=== PATIENT | female | born 1975 | race Caucasian/White ===

== ENCOUNTER 2025-06-20 16:28 | Emergency (ER) | payer OTHER, SELFPAY ==
--- OUTSIDE RECORDS SUMMARY | 2010-12-17 | XMS_ITS | Encounter Summary ---
Author Organization [facility] Address [address] [place] [address] Phone Care Team Providers Care Mixer Pigment Name Role Phone Unavailable Primary Care Provider Unavailabl e Encounter Details Date Type Department Care Team (Late st Contact Info) Description 12/17/2010 Hospital Encounter [facility],Outside Imaging [address] [place] [address] System, Provider [place] In, [place] [address] Social History Tobacco Use Types Packs/Day Years Used Date Smoking Tobacco: Former Cigarettes 1 5 1 989 - 1993 Smokeless Tobacco: Never Alcohol Use Standard Drinks/Week Comments Yes 1 (1 standard drink = 0.6 oz pur e alcohol) Very rarely Child or Family Care Answer Date Record ed Do you have problems with on e of the following making it difficult for you to work, study, or receive health care? No 08/30/2023 Education Answer Date Recorded Are you interested in help w ith more adult education (for example, completing high school, GED, job training, learning the Ethiopian language, technical skills, or developing parenting skills)? No 08/30/2023 Are you concerned about learning? Not on file 08/30/2023 No 08/30/2023 Yes 08/30/2023 Food Answer Date Recorded Within the past 6 months we worried whether our food would run out before we got money to buy more. Never True 08/30/2023 Within the past 6 months the food we bought just didn't last and we didn't have enough money to get more. Never True Residential Stability Answer Date Recor ded What is your housing situation today? I have nash jean baptiste 08/30/2023 How many times have you move d in the past 12 months? Zero (I did not move) 08/30/2023 Paying for Meds Answer Date Recorded Do you have trouble paying for medicines? No 08/30/2023 Paying Utility Bills Answer Date Record ed Do you have trouble paying your heating or elect ricity bill? No 08/30/2023 Transportation Answer Date Recorded Has the lack of transportati on kept you from medical appointments or from getting medications? No 08/30/2023 Unemployment Answer Date Recorded Are you currently unemployed or working on a part-time or temporary basis, and looking for work? No 12/02/2021 Digital Access Answer Date Recorded No 08/30/2023 Yes 08/30/2023 Do you have reliable internet access at home? Ye s 08/30/2023 Do you have a device (e.g., phone, tablet, computer) with a working camera? Yes 08/30/2023 Intimate Partner Violence Answer Date R ecorded Are you denied basic needs s uch as food, clothing, or medical care? No 05/22/2025 In the past 12 months have y ou been in a relationship with a person who hurts, threatens, or tries to control you? No 05/22/2025 Are you denied basic needs s uch as food, clothing, or medical care? No 05/22/2025 In the past 12 months have y ou been in a relationship with a person who hurts, threatens, or tries to control you? 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 Wish to be (Past 1 Month) No 05/01/2024 3:41 PM EDT Daiana Escalante, YOSELIN 2. Non-Specific Active Suicidal Thoughts (Past 1 Month) No 05/01/2024 3:41 PM EDT Daiana Escalante, YOSELIN 6. Suicidal Behavior (Lifetime) No 05/01/2024 3:41 PM EDT Daiana Escalante, YOSELIN documented as of this encounter Plan of Treatment Upcoming Encounters Date Type Department Care Team (Late st Contact Info) Description 01/02/2025 Procedure Pass [facility], Mammography, Prerna Lank Imaging Department [address] [place] [address] 07/01/2025 8:45 AM EST Office Visit [facility] Plastic Surgery [address] [place] [address] Kunal Navarro MD [address] [place] [phone] [email or web address] 07/18/2025 3:00 PM EST Office Visit [address] [address] Megha Flowers, PROTECTION ENGINEER [address] [address] 08/14/2025 Procedure Pass OR Admitting Dept - Virtual Department [address] [place] [address] 08/14/2025 12:02 PM EST Hospital Encounter OR Admitting Dept - Virtual Department [address] [place] [address] Kunal Navarro MD [address] [place] [address], [address] [address] 08/14/2025 12:02 PM EST - 08/14/2025 2:27 PM EST Surgery OR Admitting Dept - Virtual Department [address] [place] [address] Kunal Navarro MD [address] [place] [address], [address] [place] [address] [email or web address] CAPSULOTOMY BREAST 01/08/2026 2:00 PM EDT Appointment [facility], Mammography, Prerna Lank Imaging Department [address] [place] [address] Maryse Aparicio PA-C [address] [place] [address] [email or web address] Hemal Rodriguez MD, PhD [address] [place] [address] [email or web address] 01/08/2026 3:00 PM EDT Office Visit [facility] [place] [facility], [address], 9th [place] [address] Hemal Rodriguez MD, PhD [address] [place] [phone] [email or web address] Scheduled Procedures Name Priority Associated Diagnoses Date/Ti me CAPSULOTOMY BREAST Breast asymmetry between [place] breast and reconstructed breast 08/14/2025 12:02 PM EST EXCHANGE IMPLANT BREAST Breast asymmetry between [place] breast and reconstructed breast 08/14/2025 12:02 PM EST documented as of this encounter Procedures Procedure Name Priority Date/Time Associated Diagnosis Comments BI MAMMOGRAM OUTSIDE (NO INTERPRETATION) Routine 12/17/2010 12:00 AM EDT documented in this encounter Results * Mammogram Outside (No Interpretation) (12/17/2010 12:00 AM EDT) Narrative SYSTEMGENERATED, DOCUMENTATION - 02/20/2018 9:56 AM EDT This study is for PACS storage only and not for interpretation. us Provider Not In System PhD IMG OUTSIDE IMAGING W /OUT INTERPRETATION Final Result documented in this encounter Visit Diagnoses Not on filedocumented in this encounter Additional Health Concerns Infection Onset Date Last Indicated Resolved Time CoV-Risk 09/01/2021 09/01/2021 09/11/2021 1:24 AM EST CoV-Risk 01/01/2022 01/01/2022 01/12/2022 1:24 AM EDT CoV-Risk 08/31/2022 08/31/2022 09/11/2022 1:22 AM EST COVID-19 04/24/2024 04/24/2024 05/15/2024 1:21 AM EDT documented as of this encounter Additional Source Comments The information contained in this document represents components of the legal health record. It is not the complete legal health record.[facility]
--- OUTSIDE RECORDS SUMMARY | 2010-12-29 | XMS_ITS | Encounter Summary ---
Author Organization [facility] Address [address] [place] [address] Phone Care Team Providers Care Molding Machine Tender Name Role Phone Unavailable Primary Care Provider Unavailabl e Encounter Details Date Type Department Care Team (Late st Contact Info) Description 12/29/2010 Hospital Encounter [facility],Outside Imaging [address] [place] [address] System, Provider [place] In, [place] [address] Social History Tobacco Use Types Packs/Day Years [...] high school, GED, job training, learning the French language, technical skills, or developing parenting skills)? [...] 3:41 PM EDT Daiana Escalante RN * [place] Suicide Severity Rating Scale (Screener/Recent Self-Report) Question [...] Info) Description 01/02/2025 Procedure Pass [facility] [place], Mammography, Prerna Lank Imaging Department [address] [place] [address] 07/01/2025 8:45 AM EST Office Visit [facility] Plastic Surgery [address] [place] [address] Kunal Navarro MD [address] [place] [address] 07/18/2025 3:00 PM EST Office Visit [address] [address] Megha Flowers, STILL OPERATOR [address] [address] 08/14/2025 Procedure Pass OR Admitting Dept - Virtual Department [address] [place] [address] 08/14/2025 12:02 PM EST Hospital Encounter OR Admitting Dept - Virtual Department [address] [place] [address] Kunal Navaror MD [address] [place] [address], [address] [address] 08/14/2025 12:02 PM EST - 08/14/2025 2:27 PM EST Surgery OR Admitting Dept - Virtual Department [address] [place] [address] Kunal Navarro MD [address] [place] [address], [address] [place] [address] [email or web address] CAPSULOTOMY BREAST 01/08/2026 2:00 PM EDT Appointment [facility], Mammography, Prerna Lank Imaging Department [address] [place] [address] Maryse Aparicio PA-C [address] [place] [address] [email or web address] Hemal Rodriguez MD, PhD [address] [place] [address] [email or web address] 01/08/2026 3:00 PM EDT Office Visit [facility] [place] [facility], [address] 9[address] [place] [address] Hemal Rodriguez MD, PhD [address] [place] [phone] [email or web address] Scheduled Procedures Name Priority Associated Diagnoses Date/Ti me CAPSULOTOMY BREAST Breast asymmetry between [place] breast and reconstructed breast 08/14/2025 12:02 PM EST EXCHANGE IMPLANT BREAST Breast asymmetry between [place] breast and reconstructed breast 08/14/2025 12:02 PM EST documented as of this encounter Procedures Procedure Name Priority Date/Time Associated Diagnosis Comments BI MAMMOGRAM OUTSIDE (NO INTERPRETATION) Routine 12/29/2010 12:00 AM EDT documented in this encounter Results * Mammogram Outside (No Interpretation) (12/29/2010 12:00 AM EDT) Narrative SYSTEMGENERATED, DOCUMENTATION - 02/20/2018 9:53 AM EDT This study is for PACS [...] It is not the complete legal health record.[facility]
--- OUTSIDE RECORDS SUMMARY | 2010-12-29 00:15 | XMS_ITS | Encounter Summary ---
Author Organization [facility] Address [address] [place] [address] Phone Care Team Providers Care Dietetic Assistant Name Role Phone Unavailable Primary Care Provider Unavailabl e Encounter Details Date Type Department Care Team (Late st Contact Info) Description 12/29/2010 12:15 AM EDT Hospital Encounter [facility],Outside Imaging [address] [place] [address] System, Provider [place] In, [place] [address] Social History Tobacco Use Types Packs/Day Years [...] high school, GED, job training, learning the German language, technical skills, or developing parenting skills)? [...] 3:41 PM EDT Daiana Escalante RN * [place] Suicide Severity Rating Scale (Screener/Recent Self-Report) Question [...] st Contact Info) Description 01/02/2025 Procedure Pass [facility] [place], Mammography, Prerna Lank Imaging Department [address] [place] [address] 07/01/2025 8:45 AM EST Office Visit [facility] Plastic Surgery [address] [place] [address] Kunal Navarro MD [address] [place] [address] 07/18/2025 3:00 PM EST Office Visit [facility] [address] [place] [address] Megha Flowers, RETAIL COMMISSION SALES ASSOCIATE 234 [facility] 7 [place] [address] 08/14/2025 Procedure Pass OR Admitting Dept - Virtual Department [address] [place] [address] 08/14/2025 12:02 PM EST Hospital Encounter OR Admitting Dept - Virtual Department [address] [place] [address] Kunal Navarro MD [address] [place] [address], [address] [address] 08/14/2025 12:02 PM EST - 08/14/2025 2:27 PM EST Surgery OR Admitting Dept - Virtual Department [address] [place] [address] Kunal Navarro MD [address] [place] [address], [address] [place] [address] [email or web address] CAPSULOTOMY BREAST 01/08/2026 2:00 PM EDT Appointment [facility], Mammography, Prerna Lank Imaging Department [address] [place] [address] Maryse Aparicio PA-C [address] [place] [address] [email or web address] Hemal Rodriguez MD, PhD [address] [place] [address] [email or web address] 01/08/2026 3:00 PM EDT Office Visit [facility] [place] [facility], [address], 9th [place] [address] Hemal Rodriguez MD, PhD [address] [place] [address] [email or web address] Scheduled Procedures Name Priority Associated Diagnoses Date/Ti me CAPSULOTOMY BREAST Breast asymmetry between [place] breast and reconstructed breast 08/14/2025 12:02 PM EST EXCHANGE IMPLANT BREAST Breast asymmetry between [place] breast and reconstructed breast 08/14/2025 12:02 PM EST documented as of this encounter Procedures Procedure Name Priority Date/Time Associated Diagnosis Comments BI MAMMOGRAM OUTSIDE (NO INTERPRETATION) Routine 12/29/2010 12:15 AM EDT documented in this encounter Results * Mammogram Outside (No Interpretation) (12/29/2010 12:15 AM EDT) Narrative SYSTEMGENERATED, DOCUMENTATION - 02/20/2018 10:02 AM EDT This study is for PACS [...] It is not the complete legal health record.[facility]
--- OUTSIDE RECORDS SUMMARY | 2010-12-29 00:30 | XMS_ITS | Encounter Summary ---
Author Organization [facility] Address [address] [place] [address] Phone Care Team Providers Care Tariff Compiler Name Role Phone Unavailable Primary Care Provider Unavailabl e Encounter Details Date Type Department Care Team (Late st Contact Info) Description 12/29/2010 12:30 AM EDT Hospital Encounter [facility],Outside Imaging [address] [place] [address] System, Provider Not In, [place] [address] Social History Tobacco Use Types Packs/Day Years [...] high school, GED, job training, learning the Eritrean language, technical skills, or developing parenting skills)? [...] 3:41 PM EDT Daiana Escalante RN * [place] Suicide Severity Rating Scale (Screener/Recent Self-Report) Question [...] st Contact Info) Description 01/02/2025 Procedure Pass [facility] [place], Mammography, Prerna Lank Imaging Department [address] [place] [address] 07/01/2025 8:45 AM EST Office Visit [facility] Plastic Surgery [address] [place] [address] Kunal Navarro MD [address] [place] [address] [email or web address] 07/18/2025 3:00 PM EST Office Visit [facility] [address] [place] [address] Megha Flowers, WOOD TOOL MAKER 234 [facility] 7 [place] [address] 08/14/2025 Procedure Pass OR Admitting Dept - Virtual Department [address] [place] [address] 08/14/2025 12:02 PM EST Hospital Encounter OR Admitting Dept - Virtual Department [address] [place] [address] Kunal Navarro MD [address] [place] [address], [address] [address] 08/14/2025 12:02 PM EST - 08/14/2025 2:27 PM EST Surgery OR Admitting Dept - Virtual Department [address] [place] [address] Kunal aNvarro MD [address] [place] [address], [address] [place] [address] [email or web address] CAPSULOTOMY BREAST 01/08/2026 2:00 PM EDT Appointment [facility], Mammography, Prerna Lank Imaging Department [address] [place] [address] Maryse Aparicio PA-C [address] [place] [phone] [email or web address] Hemal Rodriguez MD, PhD [address] [place] [address] [email or web address] 01/08/2026 3:00 PM EDT Office Visit [facility] [place] [facility], [address] [place] [address] Hemal Rodriguez MD, PhD [address] [place] [phone] [email or web address] Scheduled Procedures Name Priority Associated Diagnoses Date/Ti me CAPSULOTOMY BREAST Breast asymmetry between [place] breast and reconstructed breast 08/14/2025 12:02 PM EST EXCHANGE IMPLANT BREAST Breast asymmetry between [place] breast and reconstructed breast 08/14/2025 12:02 PM EST documented as of this encounter Procedures Procedure Name Priority Date/Time Associated Diagnosis Comments BI US BREAST OUTSIDE (NO INTERPRETATION) Routine 12/29/2010 12:30 AM EDT documented in this encounter Results * US Breast Outside (No Interpretation) (12/29/2010 12:30 AM EDT) Narrative SYSTEMGENERATED, DOCUMENTATION - 02/20/2018 10:03 AM EDT This study is for PACS [...] It is not the complete legal health record.[facility]
--- OUTSIDE RECORDS SUMMARY | 2013-07-12 01:00 | XMS_ITS | Encounter Summary ---
Author Organization [facility] Address [address] [place] [address] Phone Care Team Providers Care Universal Grinder Set Up Operator Name Role Phone Unavailable Primary Care Provider Unavailabl e Encounter Details Date Type Department Care Team (Late st Contact Info) Description 07/12/2013 Hospital Encounter [facility],Outside Imaging [address] [place] [address] System, Provider Not In, PhD Partners [address] [address] Social History Tobacco Use Types Packs/Day Years [...] high school, GED, job training, learning the Estonian language, technical skills, or developing parenting skills)? [...] 3:41 PM EDT Daiana Escalante RN * [place] Suicide Severity Rating Scale (Screener/Recent Self-Report) Question [...] Info) Description 01/02/2025 Procedure Pass [facility] [place], Mammography, Prerna Lank Imaging Department [address] [place] [address] 07/01/2025 8:45 AM EST Office Visit [facility] Plastic Surgery [address] [place] [address] Kunal Navarro MD [address] [place] [address] [email or web address] 07/18/2025 3:00 PM EST Office Visit [address] [address] Megha Flowers, CAN STRIPER [address] [address] 08/14/2025 Procedure Pass OR Admitting Dept - Virtual Department [address] [place] [address] 08/14/2025 12:02 PM EST Hospital Encounter OR Admitting Dept - Virtual Department [address] [place] [address] Kunal Navarro MD [address] [place] [address], [address] [address] 08/14/2025 12:02 PM EST - 08/14/2025 2:27 PM EST Surgery OR Admitting Dept - Virtual Department [address] [place] [address] Kunal Navarro MD [address] [place] [address], [address] [place] [address] [email or web address] CAPSULOTOMY BREAST 01/08/2026 2:00 PM EDT Appointment [facility] [place], Mammography, Prerna Lank Imaging Department [address] [place] [address] Maryse Aparicio PA-C [address] [place] [address] [email or web address] Hemal Rodriguez MD, PhD [address] [place] [address] [email or web address] 01/08/2026 3:00 PM EDT Office Visit [facility] [place] [facility], [address] 9th [place] [address] Hemal Rodriguez MD, PhD [address] [place] [address] [email or web address] Scheduled Procedures Name Priority Associated Diagnoses Date/Ti me CAPSULOTOMY BREAST Breast asymmetry between [place] breast and reconstructed breast 08/14/2025 12:02 PM EST EXCHANGE IMPLANT BREAST Breast asymmetry between [place] breast and reconstructed breast 08/14/2025 12:02 PM EST documented as of this encounter Procedures Procedure Name Priority Date/Time Associated Diagnosis Comments BI MAMMOGRAM OUTSIDE (NO INTERPRETATION) Routine 07/12/2013 12:00 AM EST documented in this encounter Results * Mammogram Outside (No Interpretation) (07/12/2013 12:00 AM EST) Narrative SYSTEMGENERATED, DOCUMENTATION - 02/20/2018 9:57 AM EDT This study is for PACS [...] It is not the complete legal health record.[facility]
[2025-06-20 16:56] VITALS: BP 146/99; PULSE 80; RESP 16; TEMP 36.4; O2SAT 98; BMI 25.0
--- NOTE | 2025-06-20 16:56 | ED.ANIMALBIT ---
HPI - Animal Bite General Chief Complaint: Animal Bite Stated Complaint: dog bite Time Seen by Provider: 06/20/25 18:25 Source: patient Mode of arrival: ambulatory Limitations: no limitations History of Present Illness ED Provider: SEAN FLOOD PA-C HPI narrative: 49-year-old female presents to the emergency department today for evaluation s/p dog bite earlier today. Patient states [place] a dog ran up to her and bit her right lower leg. She did not think the dog broke any skin and continued on riding, did not ask the public speaking professor about vaccination status. Later on in the day, she noticed a small break in her skin to the outer aspect of her right lower leg. No active bleeding or discharge. She contacted her PCP who advised her to come to the ED for rabies series. States her tetanus is up-to-date. No complaints at present. Related Data Previous Rx's ?Medication ?Instructions ?Recorded cefuroxime axetil 500 mg tablet 500 mg PO BID 5 days #10 tabs 06/20/25 metronidazole 500 mg tablet 500 mg PO TID 5 days #15 tabs 06/20/25 Allergies Allergy/AdvReac Type Severity Reaction Status Date / Time Penicillins (PCN) Allergy Hives Verified 06/20/25 16:58 Review of Systems Review of Systems: Yes all other systems are reviewed and are negative [facility] Past Medical History Attestation statement: The following information was validated with the patient. Source: old records reviewed and nursing notes reviewed Social History Social History Advance Directives: No Advance Directives Information Provided: Yes Physical Exam ED Vital Signs: Vital Signs - 24 hr 06/20/25 16:56 06/20/25 19:15 06/20/25 19:16 Temperature 97.5 F 97.5 F 97.5 F Pulse Rate 80 80 80 Respiratory Rate 16 16 16 Blood Pressure 146/99 H 146/99 H 146/99 H Pulse Oximetry 98 98 98 Oxygen Delivery Method Room Air Room Air Room Air BMI result Body Mass Index 25.0 Hypertensive, vitals are otherwise WNL General: Well appearing, in no acute distress. Skin: +See below Head: Normocephalic, atraumatic. EENT: Hearing is intact b/l. Conjunctiva clear. Sclera is anicteric. PERRLA. EOM intact. Moist mucous membranes.? Neck: Supple without LAD Cardiac: Chest wall symmetric. RRR Lungs: Normal respiratory effort without accessory muscle use. CTA bilaterally Abdomen: Soft, non-tender, non-distended. No rebound tenderness or guarding. Positive BS x4. Back: No midline spinous or paraspinal tenderness. No step off deformity. Ext: +small puncture wound noted to lateral aspect of right lower leg. No active bleeding. No exposure of subcutaneous tissue. No discharge or surrounding erythema. Neuro: AOx3. Normal speech. Ambulating with steady gait. Psych: Appropriate mood and affect. Responds appropriately to questions. Course Course Course Narrative: This is an RME: Additional HPI, ROS, PE not included below will be deferred to primary provider. RME assessment and note performed by: Xiao Chew PA-C This is a 78-smhc-gpi-female who presents to the ER with a complaint of dog bite. Reports that she was riding her bite and the dog attacked her. Reports that she did not think the skin broke, but later on noticed that it may have broken the skin. PCP told her to come into the ED for the rabies series. Has not received rabies as of yet. Plan: rabies series Reevaluation(s) Reevaluation #1: Rabies vaccine and immunoglobulin provided in the ED. Patient has an allergy to penicillin. Will avoid Augmentin. Cefuroxime plus Flagyl sent to pharmacy for prophylactic treatment. She tells me her tdap is UTD. She has been provided with infusion center contact info - advised to f/u with them for rabies series. Patient has remained stable throughout ED visit today. Discussed worrisome signs and symptoms and when to return to the ED. All questions answered at this time. Patient is agreeable with disposition and stable for discharge. Medications Administered Discontinued Medications Generic Name Dose Route Start Last Admin Trade Name Freq PRN Reason Stop Dose Admin Rabies Immune Globulin 1,200 unit 06/20/25 17:34 06/20/25 18:52 Rabies Immune Globulin/Pf 300 Unit/Ml Vial 20 unit/kg (1200 unit) 06/20/25 17:35 1,200 unit IM Administration ONCE ONE Rabies Vaccine 1 ml 06/20/25 17:34 06/20/25 18:46 Rabies Vaccine (Pcec)/Pf 1 Ml Vial IM 10/23/25 17:35 1 ml .ONCE ONE Administration Medical Decision Making Medical Decision Making MDM Narrative: 49-year-old female presents to the emergency department today for evaluation s/p dog bite earlier today. hypertensive, vitals are otherwise wnl. she is well appearing and in NAD. On exam, small puncture wound noted to lateral aspect of right lower leg. No active bleeding. No exposure of subcutaneous tissue. No discharge or surrounding erythema. Differential diagnosis includes dog bite, cellulitis, puncture wound Unlikely fracture, retained fb, abscess. Plan for wash out and rabies vaccine/ immunglobulin. Differential Diagnosis Differential Diagnoses: The differential diagnosis associated with the presentation includes As above Admission/Observation Not indicated Prescription Management I considered prescription management with: Antibiotic Social Determinants Patient?s care significantly limited by Social Determinants of Health including: Other Social Determinant of Health Critical Care Time Critical Care Time Critical Care Time: No Discharge Plan Discharge Clinical Impression: Dog bite Patient Disposition: Home, Self-Care Instructions: Animal Bite (ED), Rabies (ED) Additional Instructions: You have been evaluated in the Emergency Department today for an animal bite to your right lower leg. Please keep the area surrounding the wounds clean and dry and watch closely for signs of infection. I have sent 2 different antibiotics to the pharmacy. Cefuroxime and metronidazole. Take these both as prescribed over the next 5 days. Please take the antibiotics prescribed to you in full, as directed. You were also provided with the first rabies shot in the rabies vaccination treatment series. As discussed, please follow up with the infusion center for subsequent vaccinations over the next week. Instructions provided on separate paper. You state that your tetanus is up-to-date. This was not updated today. Please follow up with your primary care provider within two days. Return to the Emergency Department if you experience worsening or uncontrolled pain, spreading redness, fevers 100.4? or greater, pus from your bite, or for any other concerning symptoms. In the case of an emergency call 101. Rabies follow up with the [facility] Infusion Center: Upon discharge from the ED today, you will be contacted by the Infusion Center to schedule your follow up Rabies vaccines. You will need a total of 3 more injections. If for some reason you do not receive a call, please call the Infusion Center directly at [phone]. Follow up with your primary care provider after completion of the vaccine to have a titer drawn to ensure the vaccines effectiveness. Prescriptions: New cefuroxime axetil 500 mg tablet 500 mg PO BID 5 Days Qty: 10 0RF metronidazole 500 mg tablet 500 mg PO TID 5 Days Qty: 15 0RF Referrals: Physician,Unknown J [Primary Care Provider, Medical] Interventions: ED Discharge Assessment Last Done: 06/20/25 19:16 Discharge Date/Time: 06/20/25 19:16 Print Language: Malaysian
[2025-06-20] MEDS: Rabies Vaccine (PCEC)/PF 1 ML VIAL IM (18:46)
--- NOTE | 2025-06-20 18:54 | MHC.EDTECH ---
puncture to R lind cleaned with betadine and saline solution
[2025-06-20 19:15] VITALS: BP 146/99; PULSE 80; RESP 16; TEMP 36.4; O2SAT 98
[2025-06-20 19:16] VITALS: BP 146/99; PULSE 80; RESP 16; TEMP 36.4; O2SAT 98
--- OUTSIDE RECORDS SUMMARY | 2025-06-20 19:45 | XMS_ITS | Encounter Summary ---
Author Organization [facility] Address [address] [place] [address] Phone Care Team Providers Care Compensation Analyst Name Role Phone Guzman Arteaga MD Primary Care Provider Self-Referred, Patient Unavailable Unavailab Marisa Mcnally MD Unavailable + [phone] Sania ZarateC Unavailable [phone] Hemal Rodriguez MD, PhD Unavailable + [phone] Saranya Treadwell NP Unavailable Unavai Silvana Florez MD Unavailable Sophie Martins RN Unavailable [phone] Linn Menon [facility] Unavailable Malik Perez MD Unavailable [phone] Royal Daniels MD Unavailable [phone] Richard Andrews MD Unavailable Megha Flowers Primary Care Provider [phone] Encounter Details Date Type Department Care Team (Late st Contact Info) Description 03/16/2018 Ancillary Orders [facility] [address] [place], [place] [phone] Guzman Arteaga MD [address] [facility], [address] [place] [address] Breast cancer screening Social History Tobacco Use Types Packs/Day Years Used Date Smoking Tobacco: Former Cigarettes 1 5 1 989 - 1993 Smokeless Tobacco: Never Alcohol Use Standard Drinks/Week Comments Yes 1 (1 standard drink = 0.6 oz pur e alcohol) monthly Comments No Sex and Gender Information Value Date Recorded Sex Assigned at Female 03/10/2023 7:31 PM EDT Legal Sex Female 9:31 PM EDT Gender Identity Female 03/10/2023 7:31 PM EDT Sexual Orientation Straight 03/10/2023 7: 31 PM EDT 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 Plastic Surgery [address] [place] [address] Kunal Navarro MD [address] [place] [address] [email or web address] 07/18/2025 3:00 PM EST Office Visit [facility] [address] [place] [address] Megha Flowers FNP [address] [facility] [address] [place] [address] [email or web address] 08/14/2025 Procedure Pass [place] Admitting Dept - Virtual Department [address] [place] [address] 08/14/2025 12:02 PM EST Hospital Encounter OR Admitting Dept - Virtual Department [address] [place] [address] Kunal Navarro MD [address] [place] [address], [address] [place] [address] 08/14/2025 12:02 PM EST - 08/14/2025 2:27 PM EST Surgery OR Admitting Dept - Virtual Department [address] [place] [address] Kunal Navarro MD [address] [place] [address], [address] [place] [address] [email or web address] CAPSULOTOMY BREAST 01/08/2026 2:00 PM EDT Appointment [facility], Mammography, Prerna Lank Imaging Department [address] [place] [address] Maryse Aparicio PA-C [address] [place] [address] [email or web address] Hemal Rodriguez MD, PhD [address] [place] [address] [email or web address] 01/08/2026 3:00 PM EDT Office [facility], [address] 9th [place] [address] Hemal Rodriguez MD, PhD [address] [place] [address] [email or web address] Scheduled Procedures Name Priority Associated Diagnoses Date/Ti me CAPSULOTOMY BREAST Breast asymmetry between [place] breast and reconstructed breast 08/14/2025 12:02 PM EST EXCHANGE IMPLANT BREAST Breast asymmetry between [place] breast and reconstructed breast 08/14/2025 12:02 PM EST documented as of this encounter Results * BI MAMMOGRAM DIAGNOSTIC POST PROCEDURE WITH TOMOSYNTHESIS WITH CAD (RIGHT) (03/16/2018 1:59 PM EDT) Anatomical Region Laterality Modality Breast Right, Breast Bilateral Right M ammography 03/16/2018 12:5 7 PM EDT Impressions 03/16/2018 12:58 PM EDT Sonographic and mammographic lesions are definitely the same and the marker from ultrasound biopsy is well positioned. Narrative 03/16/2018 12:58 PM EDT Postbiopsy right mammogram 3-D CC and true lateral views are compared to the exam from 03/09/2018 and confirm that the marker from today's ultrasound-guided biopsy lies with in the area of architectural distortion and pleomorphic calcifications in the 9-10 o'clock right upper outer quadrant (ultrasound lesion and mammographic lesion are the same. No significant hematoma or other postbiopsy complication. Procedure Note Artie Russ MD - 03/16/2018 Postbiopsy right mammogram 3-D CC and true lateral views are compared to the exam from 03/09/2018 andconfirm that the marker from today's ultrasound-guided biopsy lies with inthe area of architectural distortion and pleomorphic calcifications in the9-10 o'clock right upper outer quadrant (ultrasound lesion andmammographic lesion are the same. No significant hematoma or other postbiopsy complication. IMPRESSION: Sonographic and mammographic lesions are definitely the same and themarker from ultrasound biopsy is well positioned. us Guzman Arteaga MD IMG MG EXAMS Final Result documented in this encounter Visit Diagnoses Diagnosis Breast cancer screening Breast screening, unspecified Breast cancer screening Breast screening, unspecified documented in this encounter Additional Health Concerns Infection Onset Date Last Indicated Resolved Time CoV-Risk 09/01/2021 09/01/2021 09/11/2021 1:24 AM EST CoV-Risk 01/01/2022 01/01/2022 01/12/2022 1:24 AM EDT CoV-Risk 08/31/2022 08/31/2022 09/11/2022 1:22 AM EST COVID-19 04/24/2024 04/24/2024 05/15/2024 1:21 AM EDT Assessment Noted Time PHQ-2 Depression Total Score: 0 11/12/19 3:55 PM EDT documented as of this encounter Care Teams Compensation Analyst Relationship Specialty Start Date End Date Guzman Arteaga MD [address] [place] [address] [address] [place] [address] [email or web address] PCP - General Family Medicine 09/05/17 03/16/23 Richard Andrews MD [address] [place] [address] [email or web address] PCP - Hematology/Oncology Hematology and Oncology 01/03/20 Megha Flowers FNP [address] [place] [address] [email or web address] PCP - General Family Medicine 03/17/23 Self-Referred, Patient Referring Physician 03/29/18 Marisa De Anda MD [address] [place] [address] [email or web address] Surgical Oncology 03/29/18 Sania Zarate PA-C [address] [place] [address] [id number] [place] [address] [email or web address] Surgical Oncology 03/29/18 Hemal Rodriguez MD, PhD [address] [place] [address] [email or web address] Hematology and Oncology 03/29/18 Saranya Treadwell, [employer] [address] [place] [address] Internal Medicine 03/29/18 Silvana Oakes MD [address] [place] [address] [email or web address] Radiation Oncology 06/01/18 Sophie Martins, RN [address] [place] [phone] [email or web address] Primary Infusion Nurse 07/17/18 Linn Menon, [address], [address] [place] [address] [address] [email or web address] Physiological Chemist Oncology 07/28/18 Malik Perez MD [address] [place] [address] [email or web address] Plastic and Reconstructive Surgery 10/25/19 Royal Daniels MD [address] [place] [address] Gynecology 10/25/19 documented as of this encounter Additional Source Comments The information contained in this document represents components of the legal health record. It is not the complete legal health record.[facility]
--- OUTSIDE RECORDS SUMMARY | 2025-06-20 19:45 | XMS_ITS | Encounter Summary ---
Author Organization [facility] Address [address] [place] [address] Phone Care Team Providers Care Tank Truck Driver Name Role Phone Guzman Arteaga MD Primary Care Provider [phone] Self-Referred, Patient Unavailable Unavailab Marisa Mcnally MD Unavailable + [phone] Sania Zarate PA-C Unavailable [phone] Hemal Rodriguez MD, PhD Unavailable [phone] Saranya Treadwell NP Unavailable Unavai Silvana Florez MD Unavailable Sophie Martins RN Unavailable [phone] Linn Menon [facility] Unavailable [phone] Malik Perez MD Unavailable [phone] Royal Daniels MD Unavailable [phone] Richard Andrwes MD Unavailable Megha Flowers RADIOLOGY TECHNICIAN Primary Care Provider [phone] Reason for Referral * MRI/CAT Scan - Closed Specialty Diagnoses / Procedures Referred By Janet t Referred To Contact Radiology Diagnoses Malignant neoplasm of right female breast, unspecified estrogen receptor status, unspecified site of breast Procedures NM Blodgett Node Breast Injection Only Marisa De Anda MD Phone: tel: fax:[phone] [email or web address] Referral ID Status Reason Start Date Expiration Date Visits Re quested Visits Authorized [id number] Closed 04/20/2018 04/20/2019 1 1 Encounter Details Date Type Department Care Team (Late st Contact Info) Description 04/20/2018 Prep for Surgery [facility] [address] [place] [address] Pina Whiteside NP [address] [place] [address] [email or web address] Malignant neoplasm of right female breast, unspecified estrogen receptor status, unspecified site of breast (Primary Dx) Social History Tobacco Use Types Packs/Day Years [...] st Contact Info) Description 01/02/2025 Procedure Pass [facility] [place], Mammography, Prerna Lank Imaging Department [address] [place] [address] 07/01/2025 8:45 AM EST Office Visit [facility] [place] [facility] [address] [place] [address] Kunal Navarro MD [address] [place] [address], [address] [address] 07/18/2025 3:00 PM EST Office Visit [facility] [address] [place] [address] Megha Flowers, RADIOLOGY TECHNICIAN [address] [facility], [address] [place] [address] 08/14/2025 Procedure Pass [place] Admitting Dept - Virtual Department [address] [place] [address] 08/14/2025 12:02 PM EST Hospital Encounter OR Admitting Dept - Virtual Department [address] [place] [address] uKnal Navarro MD [address] [place] [address], [address] [place] [address] 08/14/2025 12:02 PM EST - 08/14/2025 2:27 PM EST Surgery OR Admitting Dept - Virtual Department [address] [place] [address] Kunal Navarro MD [address] [place] [address], [address] [place] [address] [email or web address] CAPSULOTOMY BREAST 01/08/2026 2:00 PM EDT Appointment [facility] [place], Mammography, Prerna Lank Imaging Department [address] [place] [address] Maryse Aparicio PA-C [address] [place] [address] [email or web address] Hemal Rodriguez MD, PhD [address] [place] [address] [email or web address] 01/08/2026 3:00 PM EDT Office Visit [facility], [facility] [place] [address] [facility], 9th [place] [address] Hemal Rodriguez MD, PhD [address] [place] [address] [email or web address] Scheduled Procedures Name Priority Associated Diagnoses Date/Ti me CAPSULOTOMY BREAST Breast asymmetry between pauma breast and reconstructed breast 08/14/2025 12:02 PM EST EXCHANGE IMPLANT BREAST Breast asymmetry between pauma breast and reconstructed breast 08/14/2025 12:02 PM EST documented as of this encounter Results * NM Blodgett Node Breast Injection Only (05/22/2018 8:14 AM EDT) Narrative [facility] - 05/22/2018 8:14 AM EDT This study has been automatically advanced to Final and does not contain a Radiology result. Radiopharmaceutical administered in the Operating Room. Please refer to Operative Note. us Marisa De Anda MD IMG NM LYMPHOSCINT Fin al Result [facility] documented in this encounter Visit Diagnoses Diagnosis Malignant neoplasm of right female breast, unspecified estrogen receptor status, unspecified site of breast- Primary Malignant neoplasm of right female breast, unspecified estrogen receptor status, unspecified site of breast documented in this encounter Additional Health Concerns Infection Onset Date Last Indicated Resolved Time CoV-Risk 09/01/2021 09/01/2021 09/11/2021 1:24 AM EST CoV-Risk 01/01/2022 01/01/2022 01/12/2022 1:24 AM EDT CoV-Risk 08/31/2022 08/31/2022 09/11/2022 1:22 AM EST COVID-19 04/24/2024 04/24/2024 05/15/2024 1:21 AM EDT Assessment Noted Time PHQ-2 Depression Total Score: 0 16/20 18 3:55 PM EDT documented as of this encounter Care Teams Tank Truck Driver Relationship Specialty Start Date End Date Guzman Arteaga MD [address] [place] [address], [address] [place] [address] [email or web address] PCP - General Family Medicine 09/05/17 03/16/23 Richard Andrews MD [address] [place] [address] [email or web address] PCP - Hematology/Oncology Hematology and Oncology 01/03/20 Megha Flowers FNP [address] [place] [address], [facility] [address] [place] [address] [email or web address] PCP - General Family Medicine 03/17/23 Self-Referred, Patient Referring Physician 03/29/18 Marisa De Anda MD [address] [place] [address] [email or web address] Surgical Oncology 03/29/18 Sania Zarate PA-C [address] [place] [address] [id number] [place], [place] [email or web address] Surgical Oncology 03/29/18 Hemal Rodriguez MD, PhD [address] [place] [address] [email or web address] Hematology and Oncology 03/29/18 Saranya Treadwell, TECHNICAL BUSINESS ANALYST [address] [place] [address] Internal Medicine 03/29/18 Silvana Oakes MD [address] [place] [address], AS[address] [place] [address] [email or web address] Radiation Oncology 06/01/18 Sophie Martins, RN [address] [place] [address], [address] [address] [email or web address] Primary Infusion Nurse 07/17/18 Linn Menon, [address] [address] [email or web address] Partner Oncology 07/28/18 Malik Perez MD [address] [place] [address] [email or web address] Plastic and Reconstructive Surgery 10/25/19 Royal Daniels MD [address] [place] [address] Gynecology 10/25/19 documented as of this encounter Additional Source Comments The information contained in this document represents components of the legal health record. It is not the complete legal health record.[facility]
--- OUTSIDE RECORDS SUMMARY | 2025-06-20 19:45 | XMS_ITS | Encounter Summary ---
Author Organization [facility] Address [address] [facility] [address] [place] [address] Phone Care Team Providers Care Operations Expert Name Role Phone Guzman Arteaga MD Primary Care Provider [phone] Self-Referred, Patient Unavailable Unavailab Marisa Mcnally MD Unavailable + [phone] Sania Zarate PA-C Unavailable [phone] Hemal Rodriguez MD, PhD Unavailable + [phone] Saranya Treadwell NP Unavailable Unavai Silvana Florez MD Unavailable Sophie Martins RN Unavailable [phone] Linn Menon [facility] Unavailable [phone] Malik Perez MD Unavailable [phone] Royal Daniels MD Unavailable [phone] Richard Andrews MD Unavailable Megha Flowers Primary Care Provider [phone] Reason for Referral * MRI/CAT Scan - Closed Specialty Diagnoses / Procedures Referred By Janet piña Referred To Contact Procedures MRI Breast Outside (No Interpretation) System, Provider Not In, PhD Partners [address] [address] Referral ID Status Reason Start Date Expiration Date Visits Re quested Visits Authorized [id number] Closed 10/12/2018 10/12/2019 1 1 Encounter Details Date Type Department Care Team (Late Contact Info) Description 10/12/2018 Ancillary Orders [facility],Outside Imaging [address] [place] [address] System, Provider [place] In, [place] [address] Social History Tobacco Use Types Packs/Day Years Used Date Smoking Tobacco: Former Cigarettes 1 5 1 989 - 1993 Smokeless Tobacco: Never Alcohol Use Standard Drinks/Week Comments Yes 1 (1 standard drink = 0.6 oz pur e alcohol) monthly - 1-2 per month Comments No Sex and Gender Information Value [...] Info) Description 01/02/2025 Procedure Pass [facility] [place], Mammography, Prerna Lank Imaging Department [address] [place] [address] 07/01/2025 8:45 AM EST Office Visit [facility] Plastic Surgery 40 [place] [address] Kunal Navarro MD 40 [facility], [facility] [address] [place] [address] 07/18/2025 3:00 PM EST Office Visit [facility] Medicine [address] [place] [address] Megha Flowers FNP [address] [facility], [address] [place] [address] 08/14/2025 Procedure Pass OR Admitting Dept - Virtual Department [address] [place] [address] 08/14/2025 12:02 PM EST Hospital Encounter OR Admitting Dept - Virtual Department [address] [place] [address] Kunal Navarro MD [address] [place] [address], [address] [place] [address] [email or web address] 08/14/2025 12:02 PM EST - 08/14/2025 2:27 PM EST Surgery OR Admitting Dept - Virtual Department [address] [place] [address] Kunal Navarro MD [address] [place] [address], [address] [place] [address] [email or web address] CAPSULOTOMY BREAST 01/08/2026 2:00 PM EDT Appointment [facility] Cancer [place], Mammography, Prerna Lank Imaging Department [address] [place] [address] Maryse Aparicio PA-C [address] [place] [address] [email or web address] Hemal Rodriguez MD, PhD [address] [place] [address] [email or web address] 01/08/2026 3:00 PM EDT Office Visit [facility], [facility], [facility] Cancer [address], 9th [place] [address] Hemal Rodriguez MD, PhD [address] [place] [address] [email or web address] Scheduled Procedures Name Priority Associated Diagnoses Date/Ti me CAPSULOTOMY BREAST Breast asymmetry between cabazon breast and reconstructed breast 08/14/2025 12:02 PM EST EXCHANGE IMPLANT BREAST Breast asymmetry between cabazon breast and reconstructed breast 08/14/2025 12:02 PM EST documented as of this encounter Results * MRI Breast Outside (No Interpretation) (03/24/2018 12:15 AM EDT) Narrative SYSTEMGENERATED, DOCUMENTATION - 10/12/2018 11:24 AM EST This study is for PACS storage only [...] Noted Time PHQ-2 Depression Total Score: 0 05/12/20 18 11:54 AM EDT documented as of this encounter Care Teams Operations Expert Relationship Specialty Start Date End Date Guzman Arteaga MD [address] [place] [address] 7 [place] [address] [email or web address] PCP - General Family Medicine 09/05/17 03/16/23 Richard Andrews MD [address] [place] [address] [email or web address] PCP - Hematology/Oncology Hematology and Oncology 01/03/20 Megha Flowers FNP [address] [place] [address] 7 [place] [address] [email or web address] PCP - General Family Medicine 03/17/23 Self-Referred, Patient Referring Physician 8/1/18 Marisa De Anda MD [address] [place] [address] [email or web address] Surgical Oncology 03/29/18 Sania Zarate PA-C [address] [place], [place] [id number] [place], [place] [email or web address] Surgical Oncology 03/29/18 Hemal Rodriguez MD, PhD [address] [place] [address] [email or web address] Hematology and Oncology 03/29/18 Saranya Treadwell NP [address] [place] [address] Internal Medicine 03/29/18 Silvana Oakes MD [address] [place] [address] [email or web address] Radiation Oncology 06/01/18 Sophie Martins, YOSELIN [address] [place] [address] [email or web address] Primary Infusion Nurse 07/17/18 Linn Menon, [address] [address] [email or web address] Transitions Manager Rn Oncology 07/28/18 Malik Perez MD [address] [place] [address] [email or web address] Plastic and Reconstructive Surgery 10/25/19 Royal Daniels MD [address] [place] [address] Gynecology 10/25/19 documented as of this encounter Additional Source Comments The information contained in this document represents components of the legal health record. It is not the complete legal health record.[facility]
--- OUTSIDE RECORDS SUMMARY | 2025-06-20 19:45 | XMS_ITS | Encounter Summary ---
Author Organization [facility] Address [address] [facility] [address] [place] [address] Phone Care Team Providers Care Chiseler Head Name Role Phone Guzman Arteaga MD Primary Care Provider Self-Referred, Patient Unavailable Unavailab Marisa Mcnally MD Unavailable + [phone] Sania Zarate PA-C Unavailable [phone] Hemal Rodriguez MD, PhD Unavailable + [phone] Saranya Treadwell NP Unavailable Unavai Silvana Florez MD Unavailable Sophie Martins RN Unavailable [phone] Linn Menon [facility] Unavailable Malik Perez MD Unavailable [phone] Royal Daniels MD Unavailable [phone] Richard Andrews MD Unavailable Megha Flowers Primary Care Provider [phone] Encounter Details Date Type Department Care Team (Late st Contact Info) Description 03/15/2022 Procedure Pass OR Admitting Dept - Virtual Department [address] [place] [address] Social History Tobacco Use Types Packs/Day Years Used Date Smoking Tobacco: Former Cigarettes 1 5 1 989 - 1993 Smokeless Tobacco: Never Alcohol Use Standard Drinks/Week Comments Yes 1 (1 standard drink = 0.6 oz pur e alcohol) monthly - 1-2 per month Child or Family Care Answer Date Record ed Do you have problems with on e of the following making it difficult for you to work, study, or receive health care? No 12/02/2021 Education Answer Date Recorded Are you interested in help w ith more adult education (for example, completing high school, GED, job training, learning the Japanese language, technical skills, or developing parenting skills)? No 12/02/2021 Food Answer Date Recorded Within the past 6 months we worried whether our food would run out before we got money to buy more. Never True 12/02/2021 Within the past 6 months the food we bought just didn't last and we didn't have enough money to get more. Never True Residential Stability Answer Date Recor ded What is your housing situation today? I have nash sing 12/02/2021 How many times have you moved in the past 12 tue ths? One time 12/02/2021 Paying for Meds Answer Date Recorded Do you have trouble paying for medicines? No 12/02/2021 Paying Utility Bills Answer Date Record ed Do you have trouble paying your heating or elect ricity bill? No 12/02/2021 Transportation Answer Date Recorded Has the lack of transportati on kept you from medical appointments or from getting medications? No 12/02/2021 Unemployment Answer Date Recorded Are you currently unemployed or working on a part-time or temporary basis, and looking for work? No 12/02/2021 Comments No Sex and Gender Information Value [...] Info) Description 01/02/2025 Procedure Pass [facility] [place], Mammography, Prerna Lank Imaging Department [address] [place] [address] 07/01/2025 8:45 AM EST Office Visit [facility] Plastic Surgery 40 [place] [address] Kunal Navarro MD [address] [place] [address], [address] [address] 07/18/2025 3:00 PM EST Office Visit [facility] [address] [place] [address] Megha Flowers, PUBLIC EMPLOYMENT MEDIATOR 234 [facility], [address] [place] [address] [email or web address] 08/14/2025 Procedure Pass OR Admitting Dept - Virtual Department [address] [place] [address] 08/14/2025 12:02 PM EST Hospital Encounter OR Admitting Dept - Virtual Department [address] [place] [address] Kunal Navarro MD [address] [place] [address], [address] [address] 08/14/2025 12:02 PM EST - 08/14/2025 2:27 PM EST Surgery OR Admitting Dept - Virtual Department [address] [place] [address] Kunal Navarro MD [address] [place] [address], [address] [place] [address] CAPSULOTOMY BREAST 01/08/2026 2:00 PM EDT Appointment [facility] [place], Mammography, Prerna Lank Imaging Department [address] [place] [address] Maryse Aparicio PA-C [address] [place] [address] [email or web address] Hemal Rodriguez MD, PhD [address] [place] [address] [email or web address] 01/08/2026 3:00 PM EDT Office Visit [facility], [facility], [facility] [place] [address] [facility], 9th [place] [address] Hemal Rodriguez MD, PhD [address] [place] [address] [email or web address] Scheduled Procedures Name Priority Associated Diagnoses Date/Ti me CAPSULOTOMY BREAST Breast asymmetry between rampart breast and reconstructed breast 08/14/2025 12:02 PM EST EXCHANGE IMPLANT BREAST Breast asymmetry between rampart breast and reconstructed breast 08/14/2025 12:02 PM EST documented as of this encounter Visit Diagnoses Not on filedocumented in this encounter Additional Health Concerns Infection Onset Date Last Indicated Resolved Time CoV-Risk 08/31/2022 08/31/2022 09/11/2022 1:22 AM EST COVID-19 04/24/2024 04/24/2024 05/15/2024 1:21 AM EDT Assessment Noted Time PHQ-2 Depression Total Score: 0 12/03/19 22 8:52 AM EDT documented as of this encounter Care Teams Chiseler Head Relationship Specialty Start Date End Date Guzman Arteaga MD [address] [place] [address] 7 [place] [address] PCP - General Family Medicine 09/05/17 03/16/23 Richard Andrews MD [address] [place] [address] [email or web address] PCP - Hematology/Oncology Hematology and Oncology 01/03/20 Megha Flowers FNP [address] [place] [address] 7 [place] [address] [email or web address] PCP - General Family Medicine 03/17/23 Self-Referred, Patient Referring Physician 03/29/18 Marisa De Anda MD [address] [place] [address] [email or web address] Surgical Oncology 03/29/18 Sania Zarate PA-C [address] [place] [address] [email or web address] Surgical Oncology 03/29/18 Hemal Rodriguez MD, PhD [address] [place] [address] [email or web address] Hematology and Oncology 03/29/18 Saranya Treadwell NP [address] [place] [address] Internal Medicine 03/29/18 Silvana Oakes MD [address] [place] [address] [email or web address] Radiation Oncology 06/01/18 Sophie Martins, YOSELIN [address] [place] [address] [email or web address] Primary Infusion Nurse 07/17/18 Linn Menon, [address] [address] [email or web address] Lamp Shades Supervisor Oncology 07/28/18 Malik Perez MD [address] [place] [address] [email or web address] Plastic and Reconstructive Surgery 10/25/19 Royal Daniels MD [address] [place] [address] Gynecology 10/25/19 documented as of this encounter Additional Source Comments The information contained in this document represents components of the legal health record. It is not the complete legal health record.[facility]
--- OUTSIDE RECORDS SUMMARY | 2025-06-20 19:45 | XMS_ITS | Encounter Summary ---
Author Organization [facility] Address [address] [facility] [address] [place] [address] Phone Care Team Providers Care Cartographic Designer Name Role Phone Guzman Arteaga MD Primary Care Provider Self-Referred, Patient Unavailable Unavailab Marisa Mcnally MD Unavailable + [phone] Sania Zarate PA-C Unavailable [phone] Hemal Rodriguez MD, PhD Unavailable + [phone] Saranya Treadwell NP Unavailable Unavai Silvana Florez MD Unavailable Sophie Martins RN Unavailable [phone] Linn Menon [facility] Unavailable Malik Perez MD Unavailable [phone] Royal Daniels MD Unavailable [phone] Richard Andrews MD Unavailable Megha Flowers Primary Care Provider [phone] Encounter Details Date Type Department Care Team (Late st Contact Info) Description 03/09/2018 Procedure Pass [facility], [address] [address] Social History Tobacco Use Types Packs/Day Years [...] st Contact Info) Description 01/02/2025 Procedure Pass [facility] [place], Mammography, Prerna Lank Imaging Department [address] [place] [address] 07/01/2025 8:45 AM EST Office Visit [facility] Plastic Surgery 40 [place] [address] Kunal Navarro MD [address] [place] [address], [address] [address] [email or web address] 07/18/2025 3:00 PM EST Office Visit [facility] Medicine [address] [place] [address] Megha Flowers FNP 234 [facility], [facility] 7 [place] [address] 08/14/2025 Procedure Pass OR Admitting Dept - Virtual Department [address] [place] [address] 08/14/2025 12:02 PM EST Hospital Encounter OR Admitting Dept - Virtual Department [address] [place] [address] Kunal Navarro MD [address] [place] [address], [address] [place] [address] [email or web address] 08/14/2025 12:02 PM EST - 08/14/2025 2:27 PM EST Surgery OR Admitting Dept - Virtual Department [address] [place] [address] Kunal Navarro MD [address] [place] [address], [address] [place] [address] [email or web address] CAPSULOTOMY BREAST 01/08/2026 2:00 PM EDT Appointment [facility], Mammography, Prerna Lank Imaging Department [address] [place] [address] Maryse Aparicio PA-C [address] [place] [address] [email or web address] Hemal Rodriguez MD, PhD [address] [place] [address] [email or web address] 01/08/2026 3:00 PM EDT Office Visit [facility], [facility], [address], 9th [place] [address] Hemal Rodriguez MD, PhD [address] [place] [address] [email or web address] Scheduled Procedures Name Priority Associated Diagnoses Date/Ti me CAPSULOTOMY BREAST Breast asymmetry between [place] breast and reconstructed breast 08/14/2025 12:02 PM EST EXCHANGE IMPLANT BREAST Breast asymmetry between [facility] [place] breast and reconstructed breast 08/14/2025 12:02 PM [...] documented as of this encounter Care Teams Cartographic Designer Relationship Specialty Start Date End Date Guzman Arteaga MD [address] [place] [address], [facility] 7 [place] [address] [email or web address] PCP - General Family Medicine 09/05/17 03/16/23 Richard Andrews MD [address] [place] [address] [email or web address] PCP - Hematology/Oncology Hematology and Oncology 01/03/20 Megha Flowers FNP [address] [place] [address] 7 [place] [address] [email or web address] PCP - General Family Medicine 03/17/23 Self-Referred, Patient Referring Physician 03/29/18 Marisa De Anda MD [address] [place] [address] [email or web address] Surgical Oncology 03/29/18 Sania Zarate PA-C [address] [place] [address] [email or web address] Surgical Oncology 03/29/18 Hemal Rodriguez MD, PhD [address] [place] [address] [email or web address] Hematology and Oncology 03/29/18 Saranya Treadwell NP [address] [place] [address] Internal Medicine 03/29/18 Silvana Oakes MD [address] [place] [address] [email or web address] Radiation Oncology 06/01/18 Sophie Martins, YOSELIN [address] [place] [address] [email or web address] Primary Infusion Nurse 07/17/18 Linn Menon, [address] [address] [email or web address] Miner Assistant Oncology 07/28/18 Malik Perez MD [address] [place] [address] [email or web address] Plastic and Reconstructive Surgery 10/25/19 Royal Daniels MD [address] [place] [address] Gynecology 10/25/19 documented as of this encounter Additional Source Comments The information contained in this document represents components of the legal health record. It is not the complete legal health record.[facility]
--- OUTSIDE RECORDS SUMMARY | 2025-06-20 19:45 | XMS_ITS | Encounter Summary ---
Author Organization [facility] Address [address] [facility] [address] [place] [address] Phone Care Team Providers Care Senior Accounts Payable Clerk Name Role Phone Guzman Arteaga MD Primary Care Provider [phone] Self-Referred, Patient Unavailable Unavailab Marisa Mcnally MD Unavailable + [phone] Sania Zarate PA-C Unavailable [phone] Hemal Rodriguez MD, PhD Unavailable + [phone] Saranya Treadwell NP Unavailable Unavai Silvana Florez MD Unavailable Sophie Martins RN Unavailable [phone] [facility] Unavailable Malik Perez MD Unavailable [phone] Royal Daniels MD Unavailable [phone] Richard Andrews MD Unavailable Megha Flowers Primary Care Provider [phone] Encounter Details Date Type Department Care Team (Late st Contact Info) Description 02/20/2018 Ancillary Orders [facility],Outside Imaging [address] [place], [place] [phone] System, Provider Not In, PhD Partners [address] [address] Social History Tobacco Use Types Packs/Day Years Used Date Smoking Tobacco: Former Cigarettes 1 5 1 989 - 1994 Smokeless Tobacco: Never Alcohol Use Standard Drinks/Week [...] st Contact Info) Description 01/02/2025 Procedure Pass [facility] [place], Mammography, Prerna Lank Imaging Department [address] [place] [address] 07/01/2025 8:45 AM EST Office Visit [facility] Plastic Surgery 40 [place] [address] Kunal Navarro MD [address] [place] [address] 07/18/2025 3:00 PM EST Office Visit [facility] Medicine [address] [place] [address] Megha Flowers, AREA SALES MANAGER 234 [facility], [facility] 7 [place] [address] 08/14/2025 Procedure Pass OR Admitting Dept - Virtual Department [address] [place] [address] 08/14/2025 12:02 PM EST Hospital Encounter OR Admitting Dept - Virtual Department [address] [place] [address] Kunal Navarro MD [address] [place] [address] 08/14/2025 12:02 PM EST - 08/14/2025 2:27 PM EST Surgery OR Admitting Dept - Virtual Department [address] [place], [place] [phone] Kunal Navarro MD [address] [place] [address], [address] [place] [phone] [email or web address] CAPSULOTOMY BREAST 01/08/2026 2:00 PM EDT Appointment [facility], Mammography, Prerna Lank Imaging Department [address] [place] [address] Maryse Aparicio PA-C [address] [place] [address] [email or web address] Hemal Rodriguez MD, PhD [address] [place] [address] [email or web address] 01/08/2026 3:00 PM EDT Office Visit [facility], [facility], [address], 9th [place] [address] Hemal Rodriguez MD, PhD [address] [place] [address] [email or web address] Scheduled Procedures Name Priority Associated Diagnoses Date/Ti me CAPSULOTOMY BREAST Breast asymmetry between ruby breast and reconstructed breast 08/14/2025 12:02 PM EST EXCHANGE IMPLANT BREAST Breast asymmetry between ruby breast and reconstructed breast 08/14/2025 12:02 PM EST documented as of this encounter Results * Mammogram Outside (No [...] documented as of this encounter Care Teams Senior Accounts Payable Clerk Relationship Specialty Start Date End Date Guzman Arteaga MD [address] [place] [address] 7 [place] [address] [email or web address] PCP - General Family Medicine 09/05/17 03/16/23 Richard Andrews MD [address] [place] [address] [email or web address] PCP - Hematology/Oncology Hematology and Oncology 01/03/20 Megha Flowers FNP [address] [place] [address] 7 [place] [address] [email or web address] PCP - General Family Medicine 03/17/23 Self-Referred, Patient Referring Physician 03/29/18 Marisa De Anda MD [address] [place] [phone] [email or web address] Surgical Oncology 03/29/18 Sania Zarate PA-C [address] [place] [address] [email or web address] Surgical Oncology 03/29/18 Hemal Rodriguez MD, PhD [address] [place] [address] [email or web address] Hematology and Oncology 03/29/18 Saranya Treadwell, REHABILITATION AIDE/SCHEDULER [address] [place] [address] Internal Medicine 03/29/18 Silvana Oakes MD [address] [place] [address] [email or web address] Radiation Oncology 06/01/18 Sophie Martins, YOSELIN [address] [place] [address] [email or web address] Primary Infusion Nurse 07/17/18 Linn Menon, [address] [address] [email or web address] Automotive Warranty Administrator Oncology 07/28/18 Malik Perez MD [address] [place] [address] [email or web address] Plastic and Reconstructive Surgery 10/25/19 Royal Daniels MD [address] [place] [address] Gynecology 10/25/19 documented as of this encounter Additional Source Comments The information contained in this document represents components of the legal health record. It is not the complete legal health record.[facility]
--- OUTSIDE RECORDS SUMMARY | 2025-06-20 19:45 | XMS_ITS | Encounter Summary ---
Author Organization [facility] Address [address] [facility] [address] [place] [address] Phone Care Team Providers Care Tool Pusher Name Role Phone Guzman Arteaga MD Primary Care Provider [phone] Self-Referred, Patient Unavailable Unavailab Marisa Mcnally MD Unavailable + [phone] Sania Zarate PA-C Unavailable [phone] Hemal Rodriguez MD, PhD Unavailable + [phone] Saranya Treadwell NP Unavailable Unavai Silvana Florez MD Unavailable Sophie Martins RN Unavailable [phone] Linn Menon [facility] Unavailable Malik Perez MD Unavailable [phone] Royal Daniels MD Unavailable [phone] Richard Andrews MD Unavailable Megha Flowers Primary Care Provider [phone] Encounter Details Date Type Department Care Team (Late st Contact Info) Description 03/22/2018 Procedure Pass [facility], Ct Scan - [address] [address] Social History Tobacco Use Types Packs/Day Years [...] st Contact Info) Description 01/02/2025 Procedure Pass [facility], Mammography, Prerna Lank Imaging Department [address] [place] [address] 07/01/2025 8:45 AM EST Office Visit [facility] Plastic Surgery 40 [place] [address] Kunal Navarro MD [address] [place] [address], [address] [address] 07/18/2025 3:00 PM EST Office Visit [facility] Medicine 234 [place] [address] Megha Flowers FNP 234 [facility] 7 [place] [address] 08/14/2025 Procedure Pass OR Admitting Dept - Virtual Department [address] [place] [address] 08/14/2025 12:02 PM EST Hospital Encounter OR Admitting Dept - Virtual Department [address] [place] [address] Kunal Navarro MD [address] [place] [address], [address] [place] [address] 08/14/2025 12:02 PM EST - 08/14/2025 2:27 PM EST Surgery OR Admitting Dept - Virtual Department 30 [place] [address] Kunal Navarro MD [address] [place] [address], [address] [place] [address] [email or web address] CAPSULOTOMY BREAST 01/08/2026 2:00 PM EDT Appointment [facility], Mammography, Prerna Lank Imaging Department [address] [place] [address] Maryse Aparicio PA-C [address] [place] [address] [email or web address]@[email or web address] Hemal Rodriguez MD, PhD [address] [place] [address] [email or web address] 01/08/2026 3:00 PM EDT Office Visit [facility], Ronel [facility], [address], 9th [place] [address] Hemal Rodriguez MD, PhD [address] [place] [address] [email or web address] Scheduled Procedures Name Priority Associated Diagnoses Date/Ti me CAPSULOTOMY BREAST Breast asymmetry between [place] breast and reconstructed breast 08/14/2025 12:02 PM EST EXCHANGE IMPLANT BREAST Breast asymmetry between [place] breast and reconstructed breast 08/14/2025 12:02 PM [...] documented as of this encounter Care Teams Tool Pusher Relationship Specialty Start Date End Date Guzman Arteaga MD [address] [place] [address], [facility] 7 [place] [address] [email or web address] PCP - General Family Medicine 09/05/17 03/16/23 Richard Andrews MD [address] [place] [address] [email or web address] PCP - Hematology/Oncology Hematology and Oncology 01/03/20 Megha Flowers FNP [address] [place] [address] 7 [place] [address] [email or web address] PCP - General Family Medicine 03/17/23 Self-Referred, Patient Referring Physician 03/29/18 Marisa De Anda MD [address] [place] [address] [email or web address] Surgical Oncology 03/29/18 Sania Zarate PA-C [address] [place] [address] [place] [address] Sarthak@[facility] Surgical Oncology 03/29/18 Hemal Rodriguez MD, PhD [address] [place] [address] [email or web address] Hematology and Oncology 03/29/18 Saranya Treadwell NP [address] [place] [address] Internal Medicine 03/29/18 Silvana Oakes MD [address] [place] [address] [email or web address] Radiation Oncology 06/01/18 Sophie Martins, YOSELIN [address] [place] [address] [email or web address] Primary Infusion Nurse 07/17/18 Linn Menon, [address] [address] [email or web address] Vessel Welder Oncology 07/28/18 Malik Perez MD [address] [place] [address] [email or web address] Plastic and Reconstructive Surgery 10/25/19 Royal Daniels MD [address] [place] [address] Gynecology 10/25/19 documented as of this encounter Additional Source Comments The information contained in this document represents components of the legal health record. It is not the complete legal health record.[facility]
--- OUTSIDE RECORDS SUMMARY | 2025-06-20 19:45 | XMS_ITS | Encounter Summary ---
Author Organization [facility] Address [address] [facility] [address] [place] [address] Phone Care Team Providers Care Territory Manager General Sales Name Role Phone Guzman Arteaga MD Primary Care Provider [phone] Self-Referred, Patient Unavailable Unavailab Marisa Mcnally MD Unavailable + [phone] Sania Zarate PA-C Unavailable [phone] Hemal Rodriguez MD, PhD Unavailable + [phone] Saranya Treadwell NP Unavailable Unavai Silvana Florez MD Unavailable Sophie Martins RN Unavailable [phone] Linn Menon [facility] Unavailable Malik Perez MD Unavailable [phone] Royal Daniels MD Unavailable [phone] Richard Andrews MD Unavailable Megha Flowers Primary Care Provider [phone] Encounter Details Date Type Department Care Team (Late st Contact Info) Description 02/22/2020 Procedure Pass [facility] Periop [address] [place] [address] Social History Tobacco Use Types Packs/Day Years Used Date Smoking Tobacco: Former Cigarettes 1 5 1 9 - 1993 Smokeless Tobacco: Never Alcohol Use [...] Info) Description 01/02/2025 Procedure Pass [facility], Mammography, Prerna Lank Imaging Department [address] [place] [address] 07/01/2025 8:45 AM EST Office Visit [facility] Plastic Surgery 40 [place] [address] Kunal Navarro MD [address] [place] [address], [address] [address] 07/18/2025 3:00 PM EST Office Visit [facility] Medicine [address] [place] [address] Megha Folwers FNP 234 [facility] 7 [place] [address] 08/14/2025 Procedure Pass OR Admitting Dept - Virtual Department [address] [place] [address] 08/14/2025 12:02 PM EST Hospital Encounter OR Admitting Dept - Virtual Department [address] [place] [address] Kunal Navarro MD [address] [place] [address], [address] [place] [address] 08/14/2025 12:02 PM EST - 08/14/2025 2:27 PM EST Surgery OR Admitting Dept - Virtual Department [address] [place] [address] Kunal Navarro MD [address] [place] [address], [address] [place] [address] [email or web address] CAPSULOTOMY BREAST 01/08/2026 2:00 PM EDT Appointment [facility], Mammography, Prerna Lank Imaging Department [address] [place] [address] Maryse Aparicio PA-C [address] [place] [address] [email or web address]@[email or web address] Hemal Rodriguez MD, PhD [address] [place] [address] [email or web address] 01/08/2026 3:00 PM EDT Office Visit [facility], [facility], [address] 9th [place] [address] Hemal Rodriguez MD, PhD [address] [place] [address] [email or web address] Scheduled Procedures Name Priority Associated Diagnoses Date/Ti me CAPSULOTOMY BREAST Breast asymmetry between [place] breast and reconstructed breast 08/14/2025 12:02 PM EST EXCHANGE IMPLANT BREAST Breast asymmetry between [place] breast and reconstructed breast 08/14/2025 12:02 PM [...] Time PHQ-2 Depression Total Score: 0 05/12/20 11:54 AM EDT documented as of this encounter Care Teams Territory Manager General Sales Relationship Specialty Start Date End Date Guzman Arteaga MD [address] [place] [address], [facility] 7 [place] [address] [email or web address] PCP - General Family Medicine 09/05/17 03/16/23 Richard Andrews MD [address] [place] [address] [email or web address] PCP - Hematology/Oncology Hematology and Oncology 01/03/20 Megha Flowers FNP [address] [place] [address] 7 [place] [address] [email or web address] PCP - General Family Medicine 03/17/23 Self-Referred, Patient Referring Physician 03/29/18 Marisa De Anda MD [address] [place] [address] [email or web address] Surgical Oncology 03/29/18 Sania Zarate PA-C [address] [place] [address] [email or web address]@[email or web address] Surgical Oncology 03/29/18 Hemal Rodriguez MD, PhD [address] [place] [address] [email or web address] Hematology and Oncology 03/29/18 Saranya Treadwell NP [address] [place] [address] Internal Medicine 03/29/18 Silvana Oakes MD [address] [place] [address] [email or web address] Radiation Oncology 06/01/18 Sophie Martins, YOSELIN [address] [place] [address] [email or web address] Primary Infusion Nurse 07/17/18 Linn Menon, [address] [address] [email or web address] [employer] And Skin Oncology 07/28/18 Malik Perez MD [address] [place] [address] [email or web address] Plastic and Reconstructive Surgery 10/25/19 Royal Daniels MD [address] [place] [address] Gynecology 10/25/19 documented as of this encounter Additional Source Comments The information contained in this document represents components of the legal health record. It is not the complete legal health record.[facility]
--- OUTSIDE RECORDS SUMMARY | 2025-06-20 19:45 | XMS_ITS | Encounter Summary ---
Author Organization [facility] Address [address] [facility] [address] [place] [address] Phone Care Team Providers Care Lunchroom Attendant Name Role Phone Guzman Arteaga MD Primary Care Provider [phone] Self-Referred, Patient Unavailable Unavailab Marisa Mcnally MD Unavailable + [phone] Sania Zarate PA-C Unavailable [phone] Hemal Rodriguez MD, PhD Unavailable + [phone] Saranya Treadwell NP Unavailable Unavai Silvana Florez MD Unavailable Sophie Martins RN Unavailable [phone] Linn Menon [facility] Unavailable Malik Perez MD Unavailable [phone] Royal Daniels MD Unavailable [phone] Richard Andrews MD Unavailable Megha Flowers Primary Care Provider [phone] Encounter Details Date Type Department Care Team (Late st Contact Info) Description 03/29/2018 Procedure Pass [facility] OUTSIDE IMG [address] [place] [address] Social History Tobacco Use Types Packs/Day Years [...] st Contact Info) Description 01/02/2025 Procedure Pass [facility], Mammography, Prerna Lank Imaging Department [address] [place] [address] 07/01/2025 8:45 AM EST [facility] Surgery 40 [place] [address] Kunal Navarro MD [address] [place] [address] 07/18/2025 3:00 PM EST Office Visit [facility] 234 [place] [address] Megha Flowers, KRISTINE [address] [address] 08/14/2025 Procedure Pass OR Admitting Dept - Virtual Department [address] [place] [address] 08/14/2025 12:02 PM EST Hospital Encounter OR Admitting Dept - Virtual Department [address] [place] [address] Kunal Navarro MD [address] [place] [address], [address] [place] [address] 08/14/2025 12:02 PM EST - 08/14/2025 2:27 PM EST Surgery OR Admitting Dept - Virtual Department [address] [place] [address] Kunal Navarro MD [address] [place] [address], [address] [place] [address] [email or web address] CAPSULOTOMY BREAST 01/08/2026 2:00 PM EDT Appointment [facility], Mammography, Prerna Lank Imaging Department [address] [place] [address] Maryse Aparicio PA-C [address] [place] [address] [email or web address] Hemal Rodriguez MD, PhD [address] [place] [address] [email or web address] 01/08/2026 3:00 PM EDT Office Visit [facility], Ronel [facility] [facility], [address] 9th [place] [address] Hemal Rodriguez MD, PhD [address] [place] [address] [email or web address] Scheduled Procedures Name Priority Associated Diagnoses Date/Ti me CAPSULOTOMY BREAST Breast asymmetry between [place] breast and reconstructed breast 08/14/2025 12:02 PM EST EXCHANGE IMPLANT BREAST Breast asymmetry between [place] breast and reconstructed breast 08/14/2025 12:02 PM [...] documented as of this encounter Care Teams Lunchroom Attendant Relationship Specialty Start Date End Date Guzman Arteaga MD [address] [place] [address], [facility] 7 [place] [address] [email or web address] PCP - General Family Medicine 09/05/17 03/16/23 Richard Andrews MD [address] [place] [address] [email or web address] PCP - Hematology/Oncology Hematology and Oncology 01/03/20 Megha Flowers FNP [address] [place] [address] 7 [place] [address] [email or web address] PCP - General Family Medicine 03/17/23 Self-Referred, Patient Referring Physician 03/29/18 Marisa De Anda MD [address] [place] [address] [email or web address] Surgical Oncology 03/29/18 Sania Zarate PA-C [address] [place] [address] [email or web address]@[email or web address] Surgical Oncology 03/29/18 Hemal Rodriguez MD, PhD [address] [place] [address] [email or web address] Hematology and Oncology 03/29/[address] [facility] [place] [address] Internal Medicine 03/29/18 Silvana Oakes MD [address] [place] [address] [email or web address] Radiation Oncology 06/01/18 Sophie Martins, YOSELIN [address] [place] [address] [email or web address] Primary Infusion Nurse 07/17/18 Linn Menon, [address] [address] [email or web address] Hand Expansion Envelope Maker Oncology 07/28/18 Malik Perez MD [address] [place] [address] [email or web address] Plastic and Reconstructive Surgery 10/25/19 Royal Daniels MD [address] [place] [address] Gynecology 10/25/19 documented as of this encounter Additional Source Comments The information contained in this document represents components of the legal health record. It is not the complete legal health record.[facility]
--- OUTSIDE RECORDS SUMMARY | 2025-06-20 19:45 | XMS_ITS | Encounter Summary ---
Author Organization [facility] Address [address] [facility] [address] [place] [address] Phone Care Team Providers Care Veneer Taping Machine Offbearer Name Role Phone Guzman Arteaga MD Primary Care Provider Self-Referred, Patient Unavailable Unavailab Marisa Mcnally MD Unavailable + [phone] Sania Zarate PA-C Unavailable [phone] Hemal Rodriguez MD, PhD Unavailable + [phone] Saranya Treadwell NP Unavailable Unavai Silvana Florez MD Unavailable Sophie Martins RN Unavailable [phone] [facility] Unavailable [phone] Malik Perez MD Unavailable [phone] Royal Daniels MD Unavailable [phone] Richard Andrews MD Unavailable Megha Flowers Primary Care Provider [phone] Encounter Details Date Type Department Care Team (Latest Contact Info) Description 09/27/2020 Transcribe Orders Virtual Department [address] [place] [address] Malik Perez MD [address] [place] [address] [email or web address] Pre-operative laboratory examination (Primary Dx) Social History Tobacco Use Types Packs/Day Years Used Date Smoking Tobacco: Former Cigarettes 1 5 1 989 - 1993 Smokeless Tobacco: Never Alcohol Use Standard Drinks/Week Comments Yes 0 (1 standard drink = 0.6 oz pur [...] st Contact Info) Description 01/02/2025 Procedure Pass [facility], Mammography, Prerna Lank Imaging Department [address] [place] [address] 07/01/2025 8:45 AM EST Office Visit [facility] Plastic Surgery 40 [place] [address] Kunal Navarro MD [address] [place] [address] 07/18/2025 3:00 PM EST Office Visit [facility] Medicine 234 [place] [address] Megha Flowers FNP 234 [facility] 7 [place] [address] 08/14/2025 Procedure Pass OR Admitting Dept - Virtual Department 30 [place] [address] 08/14/2025 12:02 PM EST Hospital Encounter OR Admitting Dept - Virtual Department 30 [place] [address] Kunal Navarro MD [address] [place] [address] [email or web address] 08/14/2025 12:02 PM EST - 08/14/2025 2:27 PM EST Surgery OR Admitting Dept - Virtual Department [address] [place] [address] Kunal Navarro MD [address] [place] [address], [address] [place] [address] [email or web address] CAPSULOTOMY BREAST 01/08/2026 2:00 PM EDT Appointment [facility], Mammography, Prerna Lank Imaging Department [address] [place] [address] Maryse Aparicio PA-C [address] [place] [address] [email or web address] Hemal Rodriguez MD, PhD [address] [place] [address] [email or web address] 01/08/2026 3:00 PM EDT Office Visit [facility], [facility], [address] 9th [place] [address] Hemal Rodriguez MD, PhD [address] [place] [address] [email or web address] Scheduled Procedures Name Priority Associated Diagnoses Date/Ti me CAPSULOTOMY BREAST Breast asymmetry between [place] breast and reconstructed breast 08/14/2025 12:02 PM EST EXCHANGE IMPLANT BREAST Breast asymmetry between [place] breast and reconstructed breast 08/14/2025 12:02 PM EST documented as of this encounter Results * COVID-19 PCR Order (09/27/2020 11:19 AM EST) COVID-19 Comment [id number] [facility] COVID Testing Status Sent to [facility] Micro Lab [facility] 09/27/2020 11:1 9 AM EST 09/27/2020 4:17 PM EST us Malik Perez MD BODY FLUIDS AND STOOLS ORDERAB LES Final Result [facility] [address] [place] [address] documented in this encounter Visit Diagnoses Diagnosis Pre-operative laboratory examination- Primary Pre-procedural laboratory examination documented in this encounter Additional Health Concerns Infection Onset Date Last Indicated Resolved Time CoV-Risk 09/01/2021 09/01/2021 09/11/2021 1:24 AM EST CoV-Risk 01/01/2022 01/01/2022 01/12/2022 1:24 AM EDT CoV-Risk 08/31/2022 08/31/2022 09/11/2022 1:22 AM EST COVID-19 04/24/2024 04/24/2024 05/15/2024 1:21 AM EDT Assessment Noted Time PHQ-2 Depression Total Score: 0 05/12/20 11:54 AM EDT documented as of this encounter Care Teams Veneer Taping Machine Offbearer Relationship Specialty Start Date End Date Guzman Arteaga MD [address] [place] [address] 7 [place] [address] [email or web address] PCP - General Family Medicine 09/05/17 03/16/23 Richard Andrews MD [address] [place] [address] [email or web address] PCP - Hematology/Oncology Hematology and Oncology 01/03/20 Megha Flowers FNP [address] [place] [address] 7 [place] [address] [email or web address] PCP - General Family Medicine 03/17/23 Self-Referred, Patient Referring Physician 03/29/18 Marisa De Anda MD [address] [place] [address] [email or web address] Surgical Oncology 03/29/18 Sania Zarate PA-C [address] [place] [id number] [place], [place] [email or web address] Surgical Oncology 03/29/18 Hemal Rodriguez MD, PhD [address] [place] [address] [email or web address] Hematology and Oncology 03/29/18 Saranya Treadwell NP [address] [place] [address] Internal Medicine 03/29/18 Silvana Oakes MD [address] [place] [address] [email or web address] Radiation Oncology 06/01/18 Sophie Martins, YOSELIN [address] [place] [address] [email or web address] Primary Infusion Nurse 07/17/18 Linn Menon, [address] [address] [email or web address] Pellet Post Inspector Oncology 07/28/18 Malik Perez MD [address] [place] [address] [email or web address] Plastic and Reconstructive Surgery 10/25/19 Royal Daniels MD [address] [place] [address] Gynecology 10/25/19 documented as of this encounter Additional Source Comments The information contained in this document represents components of the legal health record. It is not the complete legal health record.[facility]
--- OUTSIDE RECORDS SUMMARY | 2025-06-20 19:45 | XMS_ITS | Encounter Summary ---
Author Organization [facility] Address [address] [facility] [address] [place] [address] Phone Care Team Providers Care Tug Boat Captain Name Role Phone Guzman Arteaga MD Primary Care Provider [phone] Self-Referred, Patient Unavailable Unavailab Marisa Mcnally MD Unavailable + [phone] Sania Zarate PA-C Unavailable [phone] Hemal Rodriguez MD, PhD Unavailable + [phone] Saranya Treadwell NP Unavailable Unavai Silvana Florez MD Unavailable Sophie Martins RN Unavailable [phone] [facility] Unavailable [phone] Malik Perez MD Unavailable [phone] Royal Daniels MD Unavailable [phone] Richard Andrews MD Unavailable Megha Flowers Primary Care Provider [phone] Encounter Details Date Type Department Care Team (Late st Contact Info) Description 09/20/2020 Telephone [facility] [address] [address] Malik Perez MD [address] [place] [address] [email or web address] Social History Tobacco Use Types Packs/Day Years [...] Info) Description 01/02/2025 Procedure Pass [facility] [place], Mammography, Prerna Lank Imaging Department [address] [place] [address] 07/01/2025 8:45 AM EST Office Visit [facility]astic [facility] 40 [place] [address] Kunal Navarro MD [address] [place] [address] 07/18/2025 3:00 PM EST Office Visit [facility] 234 [place] [address] Megha Flowers FNP 234 [facility] 7 [place] [address] 08/14/2025 Procedure Pass OR Admitting Dept - Virtual Department 30 [place] [address] 08/14/2025 12:02 PM EST Hospital Encounter OR Admitting Dept - Virtual Department 30 [place] [address] Kunal Navarro MD [address] [place] [address], [address] [address] 08/14/2025 12:02 PM EST - 08/14/2025 2:27 PM EST Surgery OR Admitting Dept - Virtual Department [address] [place] [address] Kunal Navarro MD [address] [place] [address], [address] [place] [address] [email or web address] CAPSULOTOMY BREAST 01/08/2026 2:00 PM EDT Appointment [facility], Mammography, Prerna Lank Imaging Department [address] [place] [address] Maryse Aparicio PA-C [address] [place] [address] [email or web address] Hemal Rodriguez MD, PhD [address] [place] [address] [email or web address] 01/08/2026 3:00 PM EDT Office Visit [facility], [facility], [address], 9th [place] [address] Hemal Rodriguez MD, PhD [address] [place] [address] [email or web address] Scheduled Procedures Name Priority Associated Diagnoses Date/Ti me CAPSULOTOMY BREAST Breast asymmetry between [place] breast and reconstructed breast 08/14/2025 12:02 PM EST EXCHANGE IMPLANT BREAST Breast asymmetry between [place] breast and reconstructed breast 08/14/2025 12:02 PM EST documented as of this encounter Results * COVID-19 PCR Order (09/26/2020 9:22 AM EST) COVID-19 Comment [id number] [facility] COVID Testing Status PATIENT DID NOT ARRIVE FOR SCHEDULED TESTING. [facility] Comment:PROVIDER TO RESCHEDU LE NECESSARY. 09/26/2020 9:22 AM EST 09/26/2020 9:19 PM EST us Malki Perez MD BODY FLUIDS AND STOOLS ORDERAB LES Final Result Performing Organization Address City/State/[facility] Co de Phone Number [facility] 30 [place] [address] documented in this encounter Visit Diagnoses Diagnosis Encounter for preoperative screening laboratory testing for COVID-19 virus- Primary documented in this encounter Additional Health Concerns Infection Onset Date Last Indicated Resolved Time CoV-Risk 09/01/2021 09/01/2021 09/11/2021 1:24 AM EST CoV-Risk 01/01/2022 01/01/2022 01/12/2022 1:24 AM EDT CoV-Risk 08/31/2022 08/31/2022 09/11/2022 1:22 AM EST COVID-19 04/24/2024 04/24/2024 05/15/2024 1:21 AM EDT Assessment Noted Time PHQ-2 Depression Total Score: 0 05/12/20 11:54 AM EDT documented as of this encounter Care Teams Tug Boat Captain Relationship Specialty Start Date End Date Guzman Arteaga MD [address] [place] [address] 7 [place] [address] PCP - General Family Medicine 09/05/17 03/16/23 Richard Andrews MD [address] [place] [address] [email or web address] PCP - Hematology/Oncology Hematology and Oncology 01/03/20 Megha Flowers FNP [address] [place] [address] 7 [place] [address] PCP - General Family Medicine 03/17/23 Self-Referred, Patient Referring Physician 03/29/18 Marisa De Anda MD [address] [place] [address] [email or web address] Surgical Oncology 03/29/18 Sania Zarate PA-C [address] [place], [place] [address] [place], [place] [email or web address]@[email or web address] Surgical Oncology 03/29/18 Hemal Rodriguez MD, PhD [address] [place] [address] [email or web address] Hematology and Oncology 03/29/18 Saranya Treadwell NP [address] [place] [address] Internal Medicine 03/29/18 Silvana Oakes MD [address] [place] [address] [email or web address] Radiation Oncology 06/01/18 Sophie Martins, YOSELIN [address] [place] [address] [email or web address] Primary Infusion Nurse 07/17/18 Linn Menon, [address] [email or web address] Merry Go Round Operator Oncology 07/28/18 Malik Perez MD [address] [place] [address] [email or web address] Plastic and Reconstructive Surgery 10/25/19 Royal Daniels MD [address] [place] [address] Gynecology 10/25/19 documented as of this encounter Additional Source Comments The information contained in this document represents components of the legal health record. It is not the complete legal health record.[facility]
--- OUTSIDE RECORDS SUMMARY | 2025-06-20 19:45 | XMS_ITS | Encounter Summary ---
Author Organization [facility] Address [address] [facility] [address] [place] [address] Phone Care Team Providers Care Cms Expert Name Role Phone Guzman Arteaga MD Primary Care Provider [phone] Self-Referred, Patient Unavailable Unavailab Marisa Mcnally MD Unavailable + [phone] Sania Zarate PA-C Unavailable [phone] Hemal Rodriguez MD, PhD Unavailable + [phone] Saranya Treadwell NP Unavailable Unavai Silvana Florez MD Unavailable Sophie Martins RN Unavailable [phone] Linn Menon [facility] Unavailable Malik Perez MD Unavailable [phone] Royal Daniels MD Unavailable [phone] Richard Andrews MD Unavailable Megha Flowers Primary Care Provider [phone] Encounter Details Date Type Department Care Team (Late st Contact Info) Description 02/01/2020 Procedure Pass [facility] Periop 75 [place] [address] Social History Tobacco Use Types Packs/Day Years [...] Info) Description 01/02/2025 Procedure Pass [facility] [place], Mammography, Prerna Lank Imaging Department [address] [place] [address] 07/01/2025 8:45 AM EST Office Visit [facility] Plastic Surgery 40 [place] [address] Kunal Navarro MD [address] [place] [address], [address] [address] 07/18/2025 3:00 PM EST Office Visit [facility] Medicine [address] [place] [address] Megha Flowers FNP 234 [facility] 7 [place] [address] 08/14/2025 Procedure Pass OR Admitting Dept - Virtual Department [address] [place] [address] 08/14/2025 12:02 PM EST Hospital Encounter OR Admitting Dept - Virtual Department [address] [place] [address] Kunal Navarro MD [address] [place] [address], [address] [place] [address] 08/14/2025 12:02 PM EST - 08/14/2025 2:27 PM EST Surgery OR Admitting Dept - Virtual Department [address] [place] [address] Kunal Navarro MD [address] [place] [address], [address] [place] [address] [email or web address] CAPSULOTOMY BREAST 01/08/2026 2:00 PM EDT Appointment [facility], Mammography, Prerna Lank Imaging Department [address] [place] [address] Maryse Aparicio PA-C [address] [place] [address] [email or web address]@[email or web address] Hemal Rodriguez MD, PhD [address] [place] [address] [email or web address] 01/08/2026 3:00 PM EDT Office Visit [facility], [facility], [address], 9th [place] [address] Hemal Rodriguez MD, PhD [address] [place] [address] [email or web address] Scheduled Procedures Name Priority Associated Diagnoses Date/Ti me CAPSULOTOMY BREAST Breast asymmetry between [place] breast and reconstructed breast 08/14/2025 12:02 PM EST EXCHANGE IMPLANT BREAST Breast asymmetry between [place] breast and reconstructed breast 08/14/2025 12:02 PM [...] documented as of this encounter Care Teams Cms Expert Relationship Specialty Start Date End Date Guzman Arteaga MD [address] [place] [address], [facility] 7 [place] [address] [email or web address] PCP - General Family Medicine 09/05/17 03/16/23 Richard Andrews MD [address] [place] [address] [email or web address] PCP - Hematology/Oncology Hematology and Oncology 01/03/20 Megha Flowers FNP [address] [place] [address] 7 [place] [address] [email or web address] PCP - General Family Medicine 03/17/23 Self-Referred, Patient Referring Physician 03/29/18 Marisa De Anda MD [address] [place] [address] [email or web address] Surgical Oncology 03/29/18 Sania Zarate PA-C [address] [place] [address] Sarthak@[facility] Surgical Oncology 03/29/18 Hemal Rodriguez MD, PhD [address] [place] [address] [email or web address] Hematology and Oncology 03/29/18 Saranya Treadwell NP [address] [place] [address] Internal Medicine 03/29/18 Silvana Oakes MD [address] [place] [address] [email or web address] Radiation Oncology 06/01/18 Sophie Martins, YOSELIN [address] [place] [address] [email or web address] Primary Infusion Nurse 07/17/18 Linn Menon, [address] [address] [email or web address] Precision Filer Hand Oncology 07/28/18 Malik Perez MD [address] [place] [address] [email or web address] Plastic and Reconstructive Surgery 10/25/19 Royal Daniels MD [address] [place] [address] Gynecology 10/25/19 documented as of this encounter Additional Source Comments The information contained in this document represents components of the legal health record. It is not the complete legal health record.[facility]
--- OUTSIDE RECORDS SUMMARY | 2025-06-20 19:45 | XMS_ITS | Encounter Summary ---
Author Organization [facility] Address [address] [facility] [address] [place] [address] Phone Care Team Providers Care Streetcar Starter Name Role Phone Guzman Arteaga MD Primary Care Provider [phone] Self-Referred, Patient Unavailable Unavailab Marisa Mcnally MD Unavailable + [phone] Sania Zarate PA-C Unavailable [phone] Hemal Rodriguez MD, PhD Unavailable + [phone] Saranya Treadwell NP Unavailable Unavai Silvana Florez MD Unavailable Sophie Martins RN Unavailable [phone] Linn Menon [facility] Unavailable [phone] Malik Perez MD Unavailable [phone] Royal Daniels MD Unavailable [phone] Richard Andrews MD Unavailable Megha Flowers Primary Care Provider [phone] Encounter Details Date Type Department Care Team (Late st Contact Info) Description 09/29/2020 Procedure Pass [facility] Periop 1st floor [address] [place] [address] Social History Tobacco Use Types Packs/Day Years [...] st Contact Info) Description 01/02/2025 Procedure Pass [facility] [place], Mammography, Perrna Lank Imaging Department [address] [place] [address] 07/01/2025 8:45 AM EST Office Visit [facility] Plastic Surgery 40 [place] [address] Kunal Navarro MD [address] [place] [address] [email or web address] 07/18/2025 3:00 PM EST Office Visit [facility] 234 [place] [address] Megha Flowers FNP 234 [facility] 7 [place] [address] 08/14/2025 Procedure Pass OR Admitting Dept - Virtual Department 30 [place] [address] 08/14/2025 12:02 PM EST Hospital Encounter OR Admitting Dept - Virtual Department 30 [place] [address] Kunal Navarro MD [address] [place] [address], [address] [address] 08/14/2025 12:02 PM EST - 08/14/2025 2:27 PM EST Surgery OR Admitting Dept - Virtual Department [address] [place] [address] Kunal Navarro MD [address] [place] [address], [address] [place] [address] [email or web address] CAPSULOTOMY BREAST 01/08/2026 2:00 PM EDT Appointment [facility], Mammography, Prerna Lank Imaging Department [address] [place] [address] Maryse Aparicio PA-C [address] [place] [address] [email or web address]@[email or web address] Hemal Rodriguez MD, PhD [address] [place] [address] [email or web address] 01/08/2026 3:00 PM EDT Office Visit [facility], [facility] [place] [facility], [address], 9th [place] [address] Hemal Rodriguez MD, PhD [address] [place] [address] [email or web address] Scheduled Procedures Name Priority Associated Diagnoses Date/Ti me CAPSULOTOMY BREAST Breast asymmetry between [place] breast and reconstructed breast 08/14/2025 12:02 PM EST EXCHANGE IMPLANT BREAST Breast asymmetry between [place] breast and reconstructed breast 08/14/2025 12:02 PM [...] documented as of this encounter Care Teams Streetcar Starter Relationship Specialty Start Date End Date Guzman Arteaga MD [address] [place] [address] 7 [place] [address] [email or web address] PCP - General Family Medicine 09/05/17 03/16/23 Richard Andrews MD [address] [place] [address] [email or web address] PCP - Hematology/Oncology Hematology and Oncology 01/03/20 Megha Flowers FNP [address] [place] [address] 7 [place] [address] [email or web address] PCP - General Family Medicine 03/17/23 Self-Referred, Patient Referring Physician 03/29/18 Marisa De Anda MD [address] [place] [address] [email or web address] Surgical Oncology 03/29/18 Sania Zarate PA-C [address] [place] [id number] [place] [address] Sarthak@[facility] Surgical Oncology 03/29/18 Hemal Rodriguez MD, PhD [address] [place] [address] [email or web address] Hematology and Oncology 03/29/18 Saranya Treadwell NP [address] [place] [address] Internal Medicine 03/29/18 Silvana Oakes MD [address] [place] [address] [email or web address] Radiation Oncology 06/01/18 Sophie Martins, YOSELIN [address] [place] [address] [email or web address] Primary Infusion Nurse 07/17/18 Linn Menon, [address] [address] [email or web address] Subcontracts Manager Oncology 07/28/18 Malik Perez MD [address] [place] [address] [email or web address] Plastic and Reconstructive Surgery 10/25/19 Royal Daniels MD [address] [place] [address] Gynecology 10/25/19 documented as of this encounter Additional Source Comments The information contained in this document represents components of the legal health record. It is not the complete legal health record.[facility]
--- OUTSIDE RECORDS SUMMARY | 2025-06-20 19:45 | XMS_ITS | Encounter Summary ---
Author Organization [facility] Address [address] [facility] [address] [place] [address] Phone Care Team Providers Care Physical Therapy Aid Name Role Phone Guzman Arteaga MD Primary Care Provider [phone] Self-Referred, Patient Unavailable Unavailab Marisa Mcnally MD Unavailable + [phone] Sania Zarate PA-C Unavailable [phone] Hemal Rodriguez MD, PhD Unavailable + [phone] Saranya Treadwell NP Unavailable Unavai Silvana Florez MD Unavailable Sophie Martins RN Unavailable [phone] Linn Menon [facility] Unavailable Malik Perez MD Unavailable [phone] Royal Daniels MD Unavailable [phone] Richard Andrews MD Unavailable Megha Flowers Primary Care Provider [phone] Encounter Details Date Type Department Care Team (Late st Contact Info) Description 10/12/2018 Procedure Pass [facility],Outside Imaging 30 [place], [place] [phone] Social History Tobacco Use Types Packs/Day Years [...] Info) Description 01/02/2025 Procedure Pass [facility] [place], Mammography, Prerna Lank Imaging Department 450 [place] [address] 07/01/2025 8:45 AM EST Office Visit [facility] Plastic Surgery 40 [place] [address] Kunal Navarro MD [address] [place] [address] 07/18/2025 3:00 PM EST Office Visit [facility] 234 [place] [address] Megha Flowers, KRISTINE [address] [address] 08/14/2025 Procedure Pass OR Admitting Dept - Virtual Department [address] [place] [address] 08/14/2025 12:02 PM EST Hospital Encounter OR Admitting Dept - Virtual Department [address] [place] [address] Kunal Navarro MD [address] [place] [address], [address] [place] [address] 08/14/2025 12:02 PM EST - 08/14/2025 2:27 PM EST Surgery OR Admitting Dept - Virtual Department [address] [place] [address] Kunal Navarro MD [address] [place] [address], [address] [place] [address] [email or web address] CAPSULOTOMY BREAST 01/08/2026 2:00 PM EDT Appointment [facility], Mammography, Prerna Lank Imaging Department [address] [place] [address] Maryse Aparicio PA-C [address] [place] [address] [email or web address]@[email or web address] Hemal Rodriguez MD, PhD [address] [place] [address] [email or web address] 01/08/2026 3:00 PM EDT Office Visit [facility], [facility] [place] [facility], [address], 9th [place] [address] Hemal Rodriguez MD, PhD [address] [place] [address] [email or web address] Scheduled Procedures Name Priority Associated Diagnoses Date/Ti me CAPSULOTOMY BREAST Breast asymmetry between [place] breast and reconstructed breast 08/14/2025 12:02 PM EST EXCHANGE IMPLANT BREAST Breast asymmetry between [place] breast and reconstructed breast 08/14/2025 12:02 PM [...] documented as of this encounter Care Teams Physical Therapy Aid Relationship Specialty Start Date End Date Guzman Arteaga MD [address] [place] [address], [facility] 7 [place] [address] [email or web address] PCP - General Family Medicine 09/05/17 03/16/23 Richrad Andrews MD [address] [place] [address] [email or web address] PCP - Hematology/Oncology Hematology and Oncology 01/03/20 Megha Flowers FNP [address] [place] [address] 7 [place] [address] [email or web address] PCP - General Family Medicine 03/17/23 Self-Referred, Patient Referring Physician 03/29/18 Marisa De Anda MD [address] [place] [address] [email or web address] Surgical Oncology 03/29/18 Sania Zarate PA-C [address] [place] [address] [email or web address]@[facility] Surgical Oncology 03/29/18 Hemal Rodriguez MD, PhD [address] [place] [address] [email or web address] Hematology and Oncology 03/29/[address] [facility] [place] [address] Internal Medicine 03/29/18 Silvana Oakes MD [address] [place] [address] [email or web address] Radiation Oncology 06/01/18 Sophie Martins, YOSELIN [address] [place] [address] [email or web address] Primary Infusion Nurse 07/17/18 Linn Menon, [address] [address] [email or web address] Neurophysiologist Oncology 07/28/18 Malik Perez MD [address] [place] [address] [email or web address] Plastic and Reconstructive Surgery 10/25/19 Royal Daniels MD [address] [place] [address] Gynecology 10/25/19 documented as of this encounter Additional Source Comments The information contained in this document represents components of the legal health record. It is not the complete legal health record.[facility]
--- OUTSIDE RECORDS SUMMARY | 2025-06-20 19:45 | XMS_ITS | Encounter Summary ---
Author Organization [facility] Address [address] [place] [address] Phone Care Team Providers Care Heel Sander Rubber Name Role Phone Guzman Arteaga MD Primary Care Provider [phone] Self-Referred, Patient Unavailable Unavailab Marisa Mcnally MD Unavailable + [phone] Sania Zarate PA-C Unavailable [phone] Hemal Rodriguez MD, PhD Unavailable + [phone] Saranya Treadwell NP Unavailable Unavai Silvana Florez MD Unavailable Sophie Martins RN Unavailable [phone] Linn Menon [facility] Unavailable Malik Perez MD Unavailable [phone] Royal Daniels MD Unavailable [phone] Richard Andrews MD Unavailable Megha Flowers Primary Care Provider [phone] Encounter Details Date Type Department Care Team (Late st Contact Info) Description 02/20/2018 Ancillary Orders [facility],Outside Imaging 30 [place], [place] [id number] System, Provider Not In, PhD Partners [address] [address] Social History Tobacco Use Types Packs/Day Years [...] st Contact Info) Description 01/02/2025 Procedure Pass [facility] [facility] [place], Mammography, Prerna Lank Imaging Department [address] [place] [address] 07/01/2025 8:45 AM EST Office Visit [facility] Plastic Surgery 40 [place] [address] Kunal Navarro MD [address] [place] [address] 07/18/2025 3:00 PM EST Office Visit [facility] Medicine 234 [place] [address] Megha Flowers, ACID PURIFICATION EQUIPMENT OPERATOR 234 [facility], [facility] 7 [place] [address] 08/14/2025 Procedure Pass OR Admitting Dept - Virtual Department 30 [place] [address] 08/14/2025 12:02 PM EST Hospital Encounter OR Admitting Dept - Virtual Department 30 [place] [address] Kunal Navarro MD [address] [place] [address] 08/14/2025 12:02 PM EST - 08/14/2025 2:27 PM EST Surgery OR Admitting Dept - Virtual Department 30 [place] [address] Kunal Navarro MD [address] [place] [address], [address] [place] [address] [phone] [email or web address] CAPSULOTOMY BREAST 01/08/2026 2:00 PM EDT Appointment [facility], Mammography, Prerna Lank Imaging Department [address] [place] [address] Maryse Aparicio PA-C [address] [place] [address] [email or web address]@[email or web address] Hemal Rodriguez MD, PhD [address] [place] [address] [email or web address] 01/08/2026 3:00 PM EDT Office Visit [facility], Ronel Chen [place] [facility], [address], 9th [place] [address] Hemal Rodriguez MD, PhD [address] [place] [address] [email or web address] Scheduled Procedures Name Priority Associated Diagnoses Date/Ti me CAPSULOTOMY BREAST Breast asymmetry between [place] breast and reconstructed breast 08/14/2025 12:02 PM EST EXCHANGE IMPLANT BREAST Breast asymmetry between [place] breast and reconstructed breast 08/14/2025 12:02 PM [...] documented as of this encounter Care Teams Heel Sander Rubber Relationship Specialty Start Date End Date Guzman Arteaga MD [address] [place] [address] 7 [place] [address] [email or web address] PCP - General Family Medicine 09/05/17 03/16/23 Richard Andrews MD [address] [place] [address] [email or web address] PCP - Hematology/Oncology Hematology and Oncology 01/03/20 Megha Flowers FNP [address] [place] [address] 7 [place] [address] [email or web address] PCP - General Family Medicine 03/17/23 Self-Referred, Patient Referring Physician 03/29/18 Marisa De Anda MD [address] [place] [address] [email or web address] Surgical Oncology 03/29/18 Sania Zarate, PA-C [address] [place] [address] [email or web address] Surgical Oncology 03/29/18 Hemal Rodriguez MD, PhD [address] [place] [address] [email or web address] Hematology and Oncology 03/29/18 Saranya rTeadwell, DISTRIBUTION SYSTEMS SUPERINTENDENT [address] [place] [address] Internal Medicine 03/29/18 Silvana Oakes MD [address] [place] [address] Serena@[email or web address] Radiation Oncology 06/01/18 Sophie Martins, YOSELIN [address] [place] [address] [email or web address] Primary Infusion Nurse 07/17/18 Linn Menon, [address] [address] [email or web address] Courtesy Bus Driver Oncology 07/28/18 Malik Perez MD [address] [place] [address] [email or web address] Plastic and Reconstructive Surgery 10/25/19 Royal Daniels MD [address] [place] [address] Gynecology 10/25/19 documented as of this encounter Additional Source Comments The information contained in this document represents components of the legal health record. It is not the complete legal health record.[facility]
--- OUTSIDE RECORDS SUMMARY | 2025-06-20 19:45 | XMS_ITS | Encounter Summary ---
Author Organization [facility] Address [address] [facility] [address] [place] [address] Phone Care Team Providers Care Director Case Management Name Role Phone Guzman Arteaga MD Primary Care Provider [phone] Self-Referred, Patient Unavailable Unavailab Marisa Mcnally MD Unavailable + [phone] Sania Zarate PA-C Unavailable [phone] Hemal Rodriguez MD, PhD Unavailable + [phone] Saranya Treadwell NP Unavailable Unavai Silvana Florez MD Unavailable Sophie Martins RN Unavailable [phone] Linn Menon [facility] Unavailable Malik Perez MD Unavailable [phone] Royal aDniels MD Unavailable [phone] Richard Andrews MD Unavailable Megha Flowers Primary Care Provider [phone] Encounter Details Date Type Department Care Team (Late st Contact Info) Description 02/20/2018 Ancillary Orders [facility],Outside Imaging [address] [place], [place] [id number] System, Provider Not In, PhD Partners [address] [address] Social History Tobacco Use Types Packs/Day Years [...] st Contact Info) Description 01/02/2025 Procedure Pass [facility] [facility] [place], Mammography, Prerna Lank Imaging Department [address] [place] [address] 07/01/2025 8:45 AM EST Office Visit [facility] Plastic Surgery 40 [place] [address] Kunal Navarro MD [address] [place] [address] 07/18/2025 3:00 PM EST Office Visit [facility] Medicine 234 [place] [address] Megha Flowers, TOOL POLISHING MACHINE OPERATOR 234 [facility], [facility] 7 [place] [address] 08/14/2025 Procedure Pass OR Admitting Dept - Virtual Department 30 [place] [address] 08/14/2025 12:02 PM EST Hospital Encounter OR Admitting Dept - Virtual Department 30 [place] [address] Kunal Navarro MD [address] [place] [address] 08/14/2025 12:02 PM EST - 08/14/2025 2:27 PM EST Surgery OR Admitting Dept - Virtual Department [address] [place] [address] Kunal Navarro MD [address] [place] [address], [address] [place] [address] [phone] [email or web address] CAPSULOTOMY BREAST 01/08/2026 2:00 PM EDT Appointment [facility], Mammography, Prerna Lank Imaging Department [address] [place] [address] Maryse Aparicio PA-C [address] [place] [address] [email or web address]@[email or web address] Hemal Rodriguez MD, PhD [address] [place] [address] [email or web address] 01/08/2026 3:00 PM EDT Office Visit [facility], Ronel Chen [place] [facility], [address], 9th [place] [address] Hemal Rodriguez MD, PhD [address] [place] [address] [email or web address] Scheduled Procedures Name Priority Associated Diagnoses Date/Ti me CAPSULOTOMY BREAST Breast asymmetry between [place] breast and reconstructed breast 08/14/2025 12:02 PM EST EXCHANGE IMPLANT BREAST Breast asymmetry between [place] breast and reconstructed breast 08/14/2025 12:02 PM EST documented as of this encounter Results * Mammogram Outside (No Interpretation) (03/27/2015 12:00 AM EDT) Narrative SYSTEMGENERATED, DOCUMENTATION - 02/20/2018 9:55 AM EDT This study is for PACS [...] documented as of this encounter Care Teams Director Case Management Relationship Specialty Start Date End Date Guzman Arteaga MD [address] [place] [address] 7 [place] [address] [email or web address] PCP - General Family Medicine 09/05/17 03/16/23 Richard Andrews MD [address] [place] [address] [email or web address] PCP - Hematology/Oncology Hematology and Oncology 01/03/20 Megha Flowers FNP [address] [place] [address] 7 [place] [address] [email or web address] PCP - General Family Medicine 03/17/23 Self-Referred, Patient Referring Physician 03/29/18 Marisa De Anda MD [address] [place] [address] [phone] [email or web address] Surgical Oncology 03/29/18 Sania Zarate PA-C [address] [place] [address] [email or web address]@[facility] Surgical Oncology 03/29/18 Hemal Rodriguez MD, PhD [address] [place] [address] [email or web address] Hematology and Oncology 03/29/18 Saranya Treadwell, CUSTOMS COMPLIANCE MANAGER [address] [place] [address] Internal Medicine 03/29/18 Silvana Oakes MD [address] [place] [address] Serena@[facility] Radiation Oncology 06/01/18 Sophie Martins, YOSELIN [address] [place] [address] [email or web address] Primary Infusion Nurse 07/17/18 Linn Menon, [address] [address] [email or web address] Oven Roaster Oncology 07/28/18 Malik Perez MD [address] [place] [address] [email or web address] Plastic and Reconstructive Surgery 10/25/19 Royal Daniels MD [address] [place] [address] Gynecology 10/25/19 documented as of this encounter Additional Source Comments The information contained in this document represents components of the legal health record. It is not the complete legal health record.[facility]
--- OUTSIDE RECORDS SUMMARY | 2025-06-20 19:45 | XMS_ITS | Encounter Summary ---
Author Organization [facility] Address [address] [facility] [address] [place] [address] Phone Care Team Providers Care Clerk Telegraph Service Name Role Phone Guzman Arteaga MD Primary Care Provider [phone] Self-Referred, Patient Unavailable Unavailab Marisa Mcnally MD Unavailable + [phone] Sania Zarate PA-C Unavailable [phone] Hemal Rodriguez MD, PhD Unavailable + [phone] Saranya Treadwell NP Unavailable Unavai Silvana Florez MD Unavailable Sophie Martins RN Unavailable [phone] Linn Menon [facility] Unavailable Malik Perez MD Unavailable [phone] Royal Daniels MD Unavailable [phone] Richard Andrews MD Unavailable Megha Flowers Primary Care Provider [phone] Encounter Details Date Type Department Care Team (Late st Contact Info) Description 02/20/2018 Ancillary Orders [facility],Outside Imaging 30 [place], [place] [phone] System, Provider Not In, PhD Partners [address] [address] Social History Tobacco Use Types Packs/Day Years [...] st Contact Info) Description 01/02/2025 Procedure Pass [facility] [facility] [employer], Mammography, Prerna Lank Imaging Department [address] [place] [address] 07/01/2025 8:45 AM EST Office Visit [facility] Plastic Surgery 40 [place] [address] Kunal Navarro MD [address] [place] [address] 07/18/2025 3:00 PM EST Office Visit [facility] Medicine 234 [place] [address] Megha Flowers, BRICKMASON HELPER 234 [facility], [facility] 7 [place] [address] 08/14/2025 Procedure Pass OR Admitting Dept - Virtual Department 30 [place] [address] 08/14/2025 12:02 PM EST Hospital Encounter OR Admitting Dept - Virtual Department 30 [place] [address] Kunal Navarro MD [address] [place] [address] 08/14/2025 12:02 PM EST - 08/14/2025 2:27 PM EST Surgery OR Admitting Dept - Virtual Department 30 [place] [address] Kunal Navarro MD [address] [place] [address], [address] [place] [address] [phone] [email or web address] CAPSULOTOMY BREAST 01/08/2026 2:00 PM EDT Appointment [facility], Mammography, Prerna Lank Imaging Department [address] [place] [address] Maryse Aparicio PA-C [address] [place] [address] Erica@[email or web address] Hemal Rodriguez MD, PhD [address] [place] [address] [email or web address] 01/08/2026 3:00 PM EDT Office Visit [facility], Ronel Chen [place] [facility], [address], 9th [place] [address] Hemal Rodriguez MD, PhD [address] [place] [address] [email or web address] Scheduled Procedures Name Priority Associated Diagnoses Date/Ti me CAPSULOTOMY BREAST Breast asymmetry between [place] breast and reconstructed breast 08/14/2025 12:02 PM EST EXCHANGE IMPLANT BREAST Breast asymmetry between [place] breast and reconstructed breast 08/14/2025 12:02 PM [...] documented as of this encounter Care Teams Clerk Telegraph Service Relationship Specialty Start Date End Date Guzman Arteaga MD [address] [place] [address] 7 [place] [address] [email or web address] PCP - General Family Medicine 09/05/17 03/16/23 Richard Andrews MD [address] [place] [address] [email or web address] PCP - Hematology/Oncology Hematology and Oncology 01/03/20 Megha Flowers FNP [address] [place] [address] 7 [place] [address] [email or web address] PCP - General Family Medicine 03/17/23 Self-Referred, Patient Referring Physician 03/29/18 Marisa De Anda MD [address] [place] [address] [phone] [email or web address] Surgical Oncology 03/29/18 Sania Zarate PA-C [address] [place] [address] [email or web address]@[email or web address] Surgical Oncology 03/29/18 Hemal Rodriguez MD, PhD [address] [place] [address] [email or web address] Hematology and Oncology 03/29/18 Saranya Treadwell, LEARNING AND DEVELOPMENT CONSULTANT [address] [place] [address] Internal Medicine 03/29/18 Silvana Oakes MD [address] [place] [address] Serena@[email or web address] Radiation Oncology 06/01/18 Sophie Martins, YOSELIN [address] [place] [address] [email or web address] Primary Infusion Nurse 07/17/18 Linn Menon, [address] [address] [email or web address] Electrical Line Mechanic Oncology 07/28/18 Malik Perez MD [address] [place] [address] [email or web address] Plastic and Reconstructive Surgery 10/25/19 Royal Daniels MD [address] [place] [address] Gynecology 10/25/19 documented as of this encounter Additional Source Comments The information contained in this document represents components of the legal health record. It is not the complete legal health record.[facility]
--- OUTSIDE RECORDS SUMMARY | 2025-06-20 19:45 | XMS_ITS | Encounter Summary ---
Author Organization [facility] Address [address] [facility] [address] [place] [address] Phone Care Team Providers Care Patient Case Manager Name Role Phone Guzman Arteaga MD Primary Care Provider [phone] Self-Referred, Patient Unavailable Unavailab Marisa Mcnally MD Unavailable + [phone] Sanai Zarate PA-C Unavailable [phone] Hemal Rodriguez MD, PhD Unavailable + [phone] Saranya Treadwell NP Unavailable Unavai Silvana Florez MD Unavailable Sophie Martins RN Unavailable [phone] Linn Menon [facility] Unavailable [phone] Malik Perez MD Unavailable [phone] Royal Daniels MD Unavailable [phone] Richard Andrews MD Unavailable Megha Flowers Primary Care Provider [phone] Encounter Details Date Type Department Care Team (Late st Contact Info) Description 02/20/2018 Ancillary Orders [facility],Outside Imaging 30 [place], [place] [phone] System, Provider Not In, PhD Partners [address] [address] Social History Tobacco Use Types Packs/Day Years [...] st Contact Info) Description 01/02/2025 Procedure Pass [facility] [facility] [place], Mammography, Prerna Lank Imaging Department [address] [place] [address] 07/01/2025 8:45 AM EST Office Visit [facility] Plastic Surgery 40 [place] [address] Kunal Navarro MD [address] [place] [address] 07/18/2025 3:00 PM EST Office Visit [facility] Medicine 234 [place] [address] Megha Flowers, BIOMEDICAL SPECIALIST [address] [facility], [facility] 7 [place] [address] 08/14/2025 Procedure Pass OR Admitting Dept - Virtual Department 30 [place] [address] 08/14/2025 12:02 PM EST Hospital Encounter OR Admitting Dept - Virtual Department 30 [place] [address] Kunal Navarro MD [address] [place] [address] 08/14/2025 12:02 PM EST - 08/14/2025 2:27 PM EST Surgery OR Admitting Dept - Virtual Department 30 [place] [address] Kunal Navarro MD [address] [place] [address], [address] [place] [address] [phone] [email or web address] [place] [email or web address] CAPSULOTOMY BREAST 01/08/2026 2:00 PM EDT Appointment [facility], Mammography, Prerna Lank Imaging Department [address] [place] [address] Maryse Aparicio PA-C [address] [place] [address] Erica@[facility] Hemal Rodriguez MD, PhD [address] [place] [address] [email or web address] 01/08/2026 3:00 PM EDT Office Visit [facility], Ronel Chen [place] [facility], [address], 9th [place] [address] Hemal Rodriguez MD, PhD [address] [place] [address] [email or web address] Scheduled Procedures Name Priority Associated Diagnoses Date/Ti me CAPSULOTOMY BREAST Breast asymmetry between [place] breast and reconstructed breast 08/14/2025 12:02 PM EST EXCHANGE IMPLANT BREAST Breast asymmetry between [place] breast and reconstructed breast 08/14/2025 12:02 [...] documented as of this encounter Care Teams Patient Case Manager Relationship Specialty Start Date End Date Guzman Arteaga MD [address] [place] [address] 7 [place] [address] [email or web address] PCP - General Family Medicine 09/05/17 03/16/23 Richard Andrews MD [address] [place] [address] [email or web address] PCP - Hematology/Oncology Hematology and Oncology 01/03/20 Megha Flowers FNP [address] [place] [address] 7 [place] [address] [email or web address] PCP - General Family Medicine 03/17/23 Self-Referred, Patient Referring Physician 03/29/18 Marisa De Anda MD [address] [place] [address] [phone] [email or web address] Surgical Oncology 03/29/18 Sania Zarate PA-C [address] [place] [address] Fatouduke@[facility] Surgical Oncology 03/29/18 Hemal Rodriguez MD, PhD [address] [place] [address] [email or web address] Hematology and Oncology 03/29/18 Saranya Treadwell, MINING ENGINEERING TECHNOLOGIST [address] [place] [address] Internal Medicine 03/29/18 Silvana Oakes MD [address] [place] [address] Serena@[email or web address] Radiation Oncology 06/01/18 Sophie Martins, YOSELIN [address] [place] [address] [email or web address] Primary Infusion Nurse 07/17/18 Linn Meonn, [address] [address] [email or web address] Mechanical Engineering Director Oncology 07/28/18 Malik Perez MD [address] [place] [address] [email or web address] Plastic and Reconstructive Surgery 10/25/19 Royal Daniels MD [address] [place] [address] Gynecology 10/25/19 documented as of this encounter Additional Source Comments The information contained in this document represents components of the legal health record. It is not the complete legal health record.[facility]
--- OUTSIDE RECORDS SUMMARY | 2025-06-20 19:45 | XMS_ITS | Encounter Summary ---
Author Organization [facility] Address 399 [facility] [address] [place] [address] Phone Care Team Providers Care Floor Installation Mechanic Name Role Phone Guzman Arteaga MD Primary Care Provider [phone] Self-Referred, Patient Unavailable Unavailab Marisa Mcnally MD Unavailable + [phone] Sania Zarate PA-C Unavailable [phone] Hemal Rodriguez MD, PhD Unavailable + [phone] Saranya Treadwell NP Unavailable Unavai Silvana Florez MD Unavailable Sophie Martins RN Unavailable [phone] Linn Menon [facility] Unavailable Malik Perez MD Unavailable [phone] Royal Daniels MD Unavailable [phone] Richard Andrews MD Unavailable Megha Flowers Primary Care Provider [phone] Encounter Details Date Type Department Care Team (Late st Contact Info) Description 05/22/2018 Procedure Pass BWF Periop 1st floor [address] [place] [address] Social History Tobacco Use Types [...] st Contact Info) Description 01/02/2025 Procedure Pass [facility] [place], Mammography, Prerna Lank Imaging Department 450 [place] [address] 07/01/2025 8:45 AM EST Office Visit [facility] 40 [place] [address] Kunal Navarro MD [address] [place] [address] 07/18/2025 3:00 PM EST Office Visit [facility] Medicine 234 [place] [address] Megha Flowers FNP 234 [facility] 7 [place] [address] 08/14/2025 Procedure Pass OR Admitting Dept - Virtual Department 30 [place] [address] 08/14/2025 12:02 PM EST Hospital Encounter OR Admitting Dept - Virtual Department 30 [place] [address] Kunal Navarro MD [address] [place] [address], [address] [address] 08/14/2025 12:02 PM EST - 08/14/2025 2:27 PM EST Surgery OR Admitting Dept - Virtual Department [address] [place] [address] Kunal Navarro MD [address] [place] [address], [address] [place] [address] [email or web address] CAPSULOTOMY BREAST 01/08/2026 2:00 PM EDT Appointment [facility], Mammography, Prerna Lank Imaging Department [address] [place] [address] Maryse Aparicio PA-C [address] [place] [address] [email or web address] Hemal Rodriguez MD, PhD [address] [place] [address] [email or web address] 01/08/2026 3:00 PM EDT Office Visit [facility], [facility], [address], 9th [place] [address] Hemal Rodriguez MD, PhD [address] [place] [address] [email or web address] Scheduled Procedures Name Priority Associated Diagnoses Date/Ti me CAPSULOTOMY BREAST Breast asymmetry between [place] breast and reconstructed breast 08/14/2025 12:02 PM EST EXCHANGE IMPLANT BREAST Breast asymmetry between [place] breast and reconstructed breast 08/14/2025 12:02 PM [...] documented as of this encounter Care Teams Floor Installation Mechanic Relationship Specialty Start Date End Date Guzman Arteaga MD [address] [place] [address], [facility] 7 [place] [address] [email or web address] PCP - General Family Medicine 09/05/17 03/16/23 Richard Andrews MD [address] [place] [address] [email or web address] PCP - Hematology/Oncology Hematology and Oncology 01/03/20 Megha Flowers FNP [address] [place] [address] 7 [place] [address] [email or web address] PCP - General Family Medicine 03/17/23 Self-Referred, Patient Referring Physician 03/29/18 Marisa De Anda MD [address] [place] [address] [email or web address] Surgical Oncology 03/29/18 Sania Zarate PA-C [address] [place] [address] [id number] [place] [address] [email or web address] Surgical Oncology 03/29/18 Hemal Rodriguez MD, PhD [address] [place] [address] [email or web address] Hematology and Oncology 03/29/18 Saranya Treadwell NP [address] [place] [address] Internal Medicine 03/29/18 Silvana Oakes MD [address] [place] [address] [email or web address] Radiation Oncology 06/01/18 Sophie Martins, RN [address] [place] [address] [email or web address] Primary Infusion Nurse 07/17/18 Linn Menon, [address] [address] [email or web address] Chiller Operator Oncology 07/28/18 Malik Perez MD [address] [place] [address] [email or web address] Plastic and Reconstructive Surgery 10/25/19 Royal Daniels MD [address] [place] [address] Gynecology 10/25/19 documented as of this encounter Additional Source Comments The information contained in this document represents components of the legal health record. It is not the complete legal health record.[facility]
--- OUTSIDE RECORDS SUMMARY | 2025-06-20 19:45 | XMS_ITS | Encounter Summary ---
Author Organization [facility] Address 399 [facility] [address] [place] [address] Phone Care Team Providers Care Retail Special Event Associate Name Role Phone Guzman Arteaga MD Primary Care Provider [phone] Self-Referred, Patient Unavailable Unavailab Marisa Mcnally MD Unavailable + [phone] Sania Zarate PA-C Unavailable [phone] Hemal Rodriguez MD, PhD Unavailable + [phone] Saranya Treadwell NP Unavailable Unavai Silvana Florez MD Unavailable Sophie Martins RN Unavailable [phone] [facility] Unavailable Malik Perez MD Unavailable [phone] Royal Daniels MD Unavailable [phone] Richard Andrews MD Unavailable Megha Flowers Primary Care Provider [phone] Encounter Details Date Type Department Care Team (Late st Contact Info) Description 02/20/2018 Ancillary Orders [facility],Outside Imaging 30 [place], [place] [id number] System, Provider Not In, PhD Partners [address] [address] Social History Tobacco Use Types Packs/Day Years [...] st Contact Info) Description 01/02/2025 Procedure Pass [facility] [place], Mammography, Prerna Lank Imaging Department [address] [place] [address] 07/01/2025 8:45 AM EST Office Visit [facility] Surgery 40 [place] [address] Kunal Navarro MD [address] [place] [address] 07/18/2025 3:00 PM EST Office Visit [facility] Medicine 234 [place] [address] Megha Flowers, WALLPAPER HANGER 234 [facility], [facility] 7 [place] [address] 08/14/2025 Procedure Pass OR Admitting Dept - Virtual Department 30 [place] [address] 08/14/2025 12:02 PM EST Hospital Encounter OR Admitting Dept - Virtual Department 30 [place] [address] Kunal Navarro MD [address] [place] [address] 08/14/2025 12:02 PM EST - 08/14/2025 2:27 PM EST Surgery OR Admitting Dept - Virtual Department [address] [place] [address] Kunal Navarro MD [address] [place] [address], [address] [place] [phone] [email or web address] CAPSULOTOMY BREAST 01/08/2026 2:00 PM EDT Appointment [facility], Mammography, Prerna Lank Imaging Department [address] [place] [address] Maryse Aparicio PA-C [address] [place] [address] [email or web address]@[email or web address] Hemal Rodriguez MD, PhD [address] [place] [address] [email or web address] 01/08/2026 3:00 PM EDT Office Visit [facility], [facility] [place] [facility], [address], 9th [place] [address] Hemal Rodriguez MD, PhD [address] [place] [address] [email or web address] Scheduled Procedures Name Priority Associated Diagnoses Date/Ti me CAPSULOTOMY BREAST Breast asymmetry between [place] breast and reconstructed breast 08/14/2025 12:02 PM EST EXCHANGE IMPLANT BREAST Breast asymmetry between [place] breast and reconstructed breast 08/14/2025 12:02 PM EST documented as of this encounter Results * US Breast Outside [...] documented as of this encounter Care Teams Retail Special Event Associate Relationship Specialty Start Date End Date Guzman Arteaga MD [address] [place] [address] 7 [place] [address] [email or web address] PCP - General Family Medicine 09/05/17 03/16/23 Richard Andrews MD [address] [place] [address] [email or web address] PCP - Hematology/Oncology Hematology and Oncology 01/03/20 Megha Flowers FNP [address] [place] [address] 7 [place] [address] [email or web address] PCP - General Family Medicine 03/17/23 Self-Referred, Patient Referring Physician 03/29/18 Marisa De Anda MD [address] [place] [address] [id number] [email or web address] Surgical Oncology 03/29/18 Sania Zarate PA-C [address] [place] [address] [email or web address] Surgical Oncology 03/29/18 Hemal Rodriguez MD, PhD [address] [place] [address] [email or web address] Hematology and Oncology 03/29/18 Saranya Treadwell, RESAW OPERATOR [address] [place] [address] Internal Medicine 03/29/18 Silvnaa Oakes MD [address] [place] [address] [email or web address] Radiation Oncology 06/01/18 Sophie Martins, YOSELIN [address] [place] [address] [email or web address] Primary Infusion Nurse 07/17/18 Linn Menon, [address] [address] [email or web address] Manager Fire Oncology 07/28/18 Malik Perez MD [address] [place] [address] [email or web address] Plastic and Reconstructive Surgery 10/25/19 Royal Daniels MD [address] [place] [address] Gynecology 10/25/19 documented as of this encounter Additional Source Comments The information contained in this document represents components of the legal health record. It is not the complete legal health record.[facility]
--- OUTSIDE RECORDS SUMMARY | 2025-06-20 19:45 | XMS_ITS | Encounter Summary ---
Author Organization [facility] Address 399 [facility] [address] [place] [address] Phone Care Team Providers Care Cosmetic Surgeon Name Role Phone Guzman Arteaga MD Primary Care Provider [phone] Self-Referred, Patient Unavailable Unavailab Marisa Mcnally MD Unavailable + [phone] Sania Zarate PA-C Unavailable [phone] Hemal Rodriguez MD, PhD Unavailable + [phone] Saranya Treadwell NP Unavailable Unavai Silvana Florez MD Unavailable Sophie Martins RN Unavailable [phone] Linn Menon [facility] Unavailable Malik Perez MD Unavailable [phone] Royal Daniels MD Unavailable [phone] Richard Andrews MD Unavailable Megha Flowers Primary Care Provider [phone] Encounter Details Date Type Department Care Team (Late st Contact Info) Description 04/12/2018 Procedure Pass DF IMG OUTSIDE IMG [address] [place] [address] Social History Tobacco Use Types Packs/Day Years [...] st Contact Info) Description 01/02/2025 Procedure Pass [facility] [place], Mammography, Prerna Lank Imaging Department 450 [place] [address] 07/01/2025 8:45 AM EST Office Visit [facility] Surgery 40 [place] [address] Kunal Navarro MD [address] [place] [address] [email or web address] 07/18/2025 3:00 PM EST Office Visit [facility] 234 [place] [address] Megha Flowers, KRISTINE [address] [address] 08/14/2025 Procedure Pass OR Admitting Dept - Virtual Department [address] [place] [address] 08/14/2025 12:02 PM EST Hospital Encounter OR Admitting Dept - Virtual Department [address] [place] [address] Kunal Navarro MD [address] [place] [address], [address] [place] [address] 08/14/2025 12:02 PM EST - 08/14/2025 2:27 PM EST Surgery OR Admitting Dept - Virtual Department [address] [place] [address] Kunal Navarro MD [address] [place] [address], [address] [place] [address] [email or web address] CAPSULOTOMY BREAST 01/08/2026 2:00 PM EDT Appointment [facility], Mammography, Prerna Lank Imaging Department [address] [place] [address] Maryse Aparicio PA-C [address] [place] [address] Erica@[facility] Hemal Rodriguez MD, PhD [address] [place] [address] [email or web address] 01/08/2026 3:00 PM EDT Office Visit [facility], [facility] [place] [facility], [address], 9th [place] [address] Hemal Rodriguez MD, PhD [address] [place] [address] [email or web address] Scheduled Procedures Name Priority Associated Diagnoses [...] documented as of this encounter Care Teams Cosmetic Surgeon Relationship Specialty Start Date End Date Guzman Arteaga MD [address] [place] [address], [facility] 7 [place] [address] PCP - General Family Medicine 09/05/17 03/16/23 Richard Andrews MD [address] [place] [address] [email or web address] PCP - Hematology/Oncology Hematology and Oncology 01/03/20 Megha Flowers FNP [address] [place] [address] 7 [place] [address] PCP - General Family Medicine 03/17/23 Self-Referred, Patient Referring Physician 03/29/18 Marisa De Anda MD [address] [place] [address] [email or web address] Surgical Oncology 03/29/18 Sania Zarate PA-C [address] [place] [address] [email or web address]@[email or web address] Surgical Oncology 03/29/18 Hemal Rodriguez MD, PhD [address] [place] [address] [email or web address] Hematology and Oncology 03/29/18 Saranya Treadwell NP [facility] [place] [address] Internal Medicine 03/29/18 Silvana Oakes MD [address] [place] [address] Serena@[email or web address] Radiation Oncology 06/01/18 Sophie Martins, YOSELIN [address] [place] [address] [email or web address] Primary Infusion Nurse 07/17/18 Linn Menon, [address] [place] [address] [address] [email or web address] Bookmobile Driver Oncology 07/28/18 Malik Perez MD [address] [place] [address] [email or web address] Plastic and Reconstructive Surgery 10/25/19 Royal Daniels MD [address] [place] [address] Gynecology 10/25/19 documented as of this encounter Additional Source Comments The information contained in this document represents components of the legal health record. It is not the complete legal health record.[facility]
--- OUTSIDE RECORDS SUMMARY | 2025-06-20 19:45 | XMS_ITS | Encounter Summary ---
Author Organization [facility] Address 399 [facility] [address] [place] [address] Phone Care Team Providers Care Solar System Designer Name Role Phone Guzman Arteaga MD Primary Care Provider [phone] Self-Referred, Patient Unavailable Unavailab Marisa Mcnally MD Unavailable + [phone] Sania Zarate PA-C Unavailable [phone] Hemal Rodriguez MD, PhD Unavailable + [phone] Saranya Treadwell NP Unavailable Unavai Silvana Florez MD Unavailable Sophie Martins RN Unavailable [phone] Linn Menon [facility] Unavailable Malik Perez MD Unavailable [phone] Royal Daniels MD Unavailable [phone] Richard Andrews MD Unavailable Megha Flowers Primary Care Provider [phone] Encounter Details Date Type Department Care Team (Late st Contact Info) Description 02/09/2022 Procedure Pass BWF Periop 1st floor [address] [place] [address] Social History Tobacco Use Types [...] high school, GED, job training, learning the [place] language, technical skills, or developing parenting skills)? [...] st Contact Info) Description 01/02/2025 Procedure Pass [facility] [place], Mammography, Prerna Lank Imaging Department 450 [place] [address] 07/01/2025 8:45 AM EST Office Visit [facility] Plastic Surgery 40 [place] [address] Kunal Navarro MD [address] [place] [address] 07/18/2025 3:00 PM EST Office Visit [facility] 234 [place] [address] Megha Flowers, BAG PATCHER 234 [facility], [address] [place] [address] 08/14/2025 Procedure Pass OR Admitting Dept - Virtual Department [address] [place] [address] 08/14/2025 12:02 PM EST Hospital Encounter OR Admitting Dept - Virtual Department [address] [place] [address] Kunal Navarro MD [address] [place] [address], [address] [address] 08/14/2025 12:02 PM EST - 08/14/2025 2:27 PM EST Surgery OR Admitting Dept - Virtual Department [address] [place] [address] Kunal Navarro MD [address] [place] [address], [address] [address] [email or web address] CAPSULOTOMY BREAST 01/08/2026 2:00 PM EDT Appointment [facility] [place], Mammography, Prerna Lank Imaging Department [address] [place] [address] Maryse Aparicio PA-C [address] [place] [address] [email or web address] Hemal Rodriguez MD, PhD [address] [place] [address] [email or web address] 01/08/2026 3:00 PM EDT Office Visit [facility], [facility] [place] [facility], [facility] [address] [place] [address], 9th [place] [address] Hemal Rodriguez MD, PhD [address] [place] [address] [email or web address] Scheduled Procedures Name Priority Associated Diagnoses Date/Ti me CAPSULOTOMY BREAST Breast asymmetry between [place] breast and reconstructed breast 08/14/2025 12:02 PM EST EXCHANGE IMPLANT BREAST Breast asymmetry between [place] breast and reconstructed breast 08/14/2025 12:02 PM [...] documented as of this encounter Care Teams Solar System Designer Relationship Specialty Start Date End Date Guzman Arteaga MD [address] [place] [address] 7 [place] [address] PCP - General Family Medicine 09/05/17 03/16/23 Richard Andrews MD [address] [place] [address] [email or web address] PCP - Hematology/Oncology Hematology and Oncology 01/03/20 Megha Flowers FNP [address] [place] [address] 7 [place] [address] [email or web address] PCP - General Family Medicine 03/17/23 Self-Referred, Patient Referring Physician 03/29/18 Marisa De Anda MD [address] [place] [address] [email or web address] Surgical Oncology 03/29/18 Sania Zarate PA-C [address] [place] [address] [email or web address]@[email or web address] Surgical Oncology 03/29/18 Hemal Rodriguez MD, PhD [address] [place] [address] [email or web address] Hematology and Oncology 03/29/18 Saranya Treadwell NP [address] [place] [address] Internal Medicine 03/29/18 Silvana Oakes MD [address] [place] [address] Serena@[email or web address] Radiation Oncology 06/01/18 Sophie Martins, YOSELIN [address] [place] [address] [email or web address] Primary Infusion Nurse 07/17/18 Linn Menon, [address] [address] [email or web address] [employer] Worker Oncology 07/28/18 Malik Perez MD [address] [place] [address] [email or web address] Plastic and Reconstructive Surgery 10/25/19 Royal Daniels MD [address] [place] [address] Gynecology 10/25/19 documented as of this encounter Additional Source Comments The information contained in this document represents components of the legal health record. It is not the complete legal health record.[facility]
--- OUTSIDE RECORDS SUMMARY | 2025-06-20 19:45 | XMS_ITS | Encounter Summary ---
Author Organization [facility] Address [address] [facility] [address] [place] [address] Phone Care Team Providers Care Athletic Coach Name Role Phone Guzman Arteaga MD Primary Care Provider [phone] Self-Referred, Patient Unavailable Unavailab Marisa Mcnally MD Unavailable + [phone] Sania Zarate PA-C Unavailable [phone] Hemal Rodriguez MD, PhD Unavailable + [phone] Saranya Treadwell NP Unavailable Unavai Silvana Florez MD Unavailable Sophie Martins RN Unavailable [phone] Linn Menon [facility] Unavailable Malik Perez MD Unavailable [phone] Royal Daniels MD Unavailable [phone] Richard Andrews MD Unavailable Megha Flowers Primary Care Provider [phone] Encounter Details Date Type Department Care Team (Late st Contact Info) Description 02/20/2018 Ancillary Orders [facility],Outside Imaging [address] [place], [place] [phone] System, Provider Not In, PhD Partners [address] [address] Social History Tobacco Use Types Packs/Day Years [...] st Contact Info) Description 01/02/2025 Procedure Pass [facility], Mammography, Prerna Lank Imaging Department [address] [place] [address] 07/01/2025 8:45 AM EST Office Visit [facility] Plastic Surgery [address] [place] [address] Kunal Navarro MD [address] [place] [address] 07/18/2025 3:00 PM EST Office Visit [facility] Medicine 234 [place] [address] Megha Flowers, AUTO ROLLER 234 [facility] 7 [place] [address] 08/14/2025 Procedure Pass OR Admitting Dept - Virtual Department [address] [place] [address] 08/14/2025 12:02 PM EST Hospital Encounter OR Admitting Dept - Virtual Department 30 [place] [address] Kunal Navarro MD [address] [place] [address] 08/14/2025 12:02 PM EST - 08/14/2025 2:27 PM EST Surgery OR Admitting Dept - Virtual Department 30 [place] [address] Kunal Navarro MD [address] [place] [address], [address] [place] [address] [phone] [email or web address] CAPSULOTOMY BREAST 01/08/2026 2:00 PM EDT Appointment [facility], Mammography, Prerna Lank Imaging Department [address] [place] [address] Maryse Aparicio PA-C [address] [place] [address] [email or web address] Hemal Rodriguez MD, PhD [address] [place] [address] [email or web address] 01/08/2026 3:00 PM EDT Office Visit [facility], [facility], [address], 9th [place] [address] Hemal Rodriguez MD, PhD [address] [place] [phone] [email or web address] Scheduled Procedures Name Priority Associated Diagnoses Date/Ti me CAPSULOTOMY BREAST Breast asymmetry between [place] breast and reconstructed breast 08/14/2025 12:02 PM EST EXCHANGE IMPLANT BREAST Breast asymmetry between [place] breast and reconstructed breast 08/14/2025 12:02 PM EST documented as of this encounter Results * Mammogram Outside (No Interpretation) (02/20/2018 12:00 AM EDT) Narrative SYSTEMGENERATED, DOCUMENTATION - 02/20/2018 9:54 AM EDT This study is for PACS [...] documented as of this encounter Care Teams Athletic Coach Relationship Specialty Start Date End Date Guzman Arteaga MD [address] [place] [address] 7 [place] [address] [email or web address] PCP - General Family Medicine 09/05/17 03/16/23 Richard Andrews MD [address] [place] [address] [email or web address] PCP - Hematology/Oncology Hematology and Oncology 01/03/20 Megha Flowers FNP [address] [place] [address] 7 [place] [address] [email or web address] PCP - General Family Medicine 03/17/23 Self-Referred, Patient Referring Physician 03/29/18 Marisa De Anda MD [address] [place] [address] [phone] [email or web address] Surgical Oncology 03/29/18 Sania Zarate PA-C [address] [place] [address] [email or web address] Surgical Oncology 03/29/18 Hemal Rodriguez MD, PhD [address] [place] [address] [email or web address] Hematology and Oncology 03/29/18 Saranya Treadwell, ROADWAY ENGINEER [address] [place] [address] Internal Medicine 03/29/18 Silvana Oakes MD [address] [place] [address] Serena@[email or web address] Radiation Oncology 06/01/18 Sophie Martins, YOSELIN [address] [place] [address] [email or web address] Primary Infusion Nurse 07/17/18 Linn Menon, [address] [address] [email or web address] Director Of Social Services Oncology 07/28/18 Malik Perez MD [address] [place] [address] [email or web address] Plastic and Reconstructive Surgery 10/25/19 Royal Daniels MD [address] [place] [address] Gynecology 10/25/19 documented as of this encounter Additional Source Comments The information contained in this document represents components of the legal health record. It is not the complete legal health record.[facility]
--- OUTSIDE RECORDS SUMMARY | 2025-06-20 19:45 | XMS_ITS | Encounter Summary ---
Author Organization [facility] Address [address] [facility] [address] [place] [address] Phone Care Team Providers Care Core Layer Machine Operator Name Role Phone Guzman Arteaga MD Primary Care Provider Self-Referred, Patient Unavailable Unavailab Marisa Mcnally MD Unavailable + [phone] Sania Zarate PA-C Unavailable [phone] Hemal Rodriguez MD, PhD Unavailable [phone] Saranya Treadwell NP Unavailable Unavai Silvana Florez MD Unavailable Sophie Martins RN Unavailable [phone] Linn Menon [facility] Unavailable Malik Perez MD Unavailable [phone] Royal Daniels MD Unavailable [phone] Richard Andrews MD Unavailable Megha Flowers Primary Care Provider Encounter Details Date Type Department Care Team (Late st Contact Info) Description 02/21/2018 Ancillary Orders [facility] 10 [place] [address] Tierra Devries MD [address] [facility], [address] [place] [address] [email or web address] Abnormal mammogram Social History Tobacco Use Types Packs/Day Years [...] st Contact Info) Description 01/02/2025 [facility] [place], [facility]amm[facility], Prerna Lank Imaging Department [address] [place] [address] 07/01/2025 8:45 AM EST Office Visit [facility] Plastic Surgery 40 [place] [address] Kunal Navarro MD [address] [place] [address] [email or web address] 07/18/2025 3:00 PM EST Office Visit [facility] Medicine 234 [place] [address] Megha Flowers FNP 234 [facility] 7 [place] [address] [email or web address] 08/14/2025 Procedure Pass OR Admitting Dept - Virtual Department 30 [place] [address] 08/14/2025 12:02 PM EST Hospital Encounter OR Admitting Dept - Virtual Department 30 [place] [address] Kunal Navarro MD [address] [place] [address], [address] [address] 08/14/2025 12:02 PM EST - 08/14/2025 2:27 PM EST Surgery OR Admitting Dept - Virtual Department [address] [place] [address] Kunal Navarro MD [address] [place] [address], [address] [address] [email or web address] CAPSULOTOMY BREAST 01/08/2026 2:00 PM EDT Appointment [facility], Mammography, Prerna Lank Imaging Department [address] [place] [address] Maryse Aparicio PA-C [address] [place] [address] [email or web address] Hemal Rodriguez MD, PhD [address] [place] [address] [email or web address] 01/08/2026 3:00 PM EDT Office Visit [facility], [facility], [address], 9th [place] [address] Hemal Rodriguez MD, PhD [address] [place] [address] [email or web address] Scheduled Procedures Name Priority Associated Diagnoses Date/Ti me CAPSULOTOMY BREAST Breast asymmetry between [place] breast and reconstructed breast 08/14/2025 12:02 PM EST EXCHANGE IMPLANT BREAST Breast asymmetry between [place] breast and reconstructed breast 08/14/2025 12:02 PM EST documented as of this encounter Results * BI US BREAST LIMITED (BILATERAL) (03/09/2018 11:35 AM EDT) Anatomical Region Laterality Modality Breast Left, Breast Right, Breast Bilateral Bila teral Ultrasound 03/09/2018 11:4 5 AM EDT Impressions 03/09/2018 11:49 AM EDT Mass lesion at the approximate 9 o'clock position of the right breast displaying sonographic characteristics strongly suspicious for malignancy. Ultrasound-guided needle biopsy recommended. Multiple benign-appearing cysts are present in the left breast and could be followed on routine screening mammography. The results of this examination and recommendations were reviewed with the patient and subsequently discussed with Dr. Arteaga. BI-RADS CATEGORY 5 - HIGHLY SUGGESTIVE OF MALIGNANCY POS [id number] Narrative 03/09/2018 11:49 AM EDT COMPARISON: Current mammograms FINDINGS: Evaluation of the lateral right breast was performed. At the approximate 9 o'clock position 3 cm from the nipple is a hypoechoic irregularly marginated mass measuring 1.2 x 0.9 x 1.5 cm, displaying internal perfusion on color Doppler imaging and with associated shadowing microcalcifications. This correlates well in size and location of the mammographic lesion and is strongly suspicious for malignancy. Evaluation of the medial left breast reveals the presence of two circumscribed anechoic structures displaying enhanced through-transmission at the 10 o'clock position, one of which is positioned approximately 4 cm from the nipple measuring 8 x 5 x 7 mm and the second approximately 6 cm from the nipple measuring 6 x 8 x 4 mm. The first seems to correlate well with size and location of the mammographic abnormality and satisfying as the criteria for simple cyst. Procedure Note Shreyas Thomas MD - 03/09/2018 COMPARISON: Current mammograms FINDINGS: Evaluation of the lateral right breast was performed. At the approximate9 o'clock position 3 cm from the nipple is a hypoechoic irregularlymarginated mass measuring 1.2 x 0.9 x 1.5 cm, displaying internalperfusion on color Doppler imaging and with associated shadowingmicrocalcifications. This correlates well in size and location of themammographic lesion and is strongly suspicious for malignancy. Evaluation of the medial left breast reveals the presence of twocircumscribed anechoic structures displaying enhanced through-transmissionat the 10 o'clock position, one of which is positioned approximately 4 cmfrom the nipple measuring 8 x 5 x 7 mm and the second approximately 6 cmfrom the nipple measuring 6 x 8 x 4 mm. The first seems to correlate wellwith size and location of the mammographic abnormality and satisfying asthe criteria for simple cyst. IMPRESSION: Mass lesion at the approximate 9 o'clock position of the right breastdisplaying sonographic characteristics strongly suspicious for malignancy.Ultrasound-guided needle biopsy recommended. Multiple benign-appearingcysts are present in the left breast and could be followed on routinescreening mammography. The results of this examination and recommendations were reviewed with thepatient and subsequently discussed with Dr. Arteaga. BI-RADS CATEGORY 5 - HIGHLY SUGGESTIVE OF MALIGNANCY POS [id number] us Tierra Devries MD IMG US BREAST Final Result * (ABNORMAL) BI MAMMOGRAM DIAGNOSTIC WITH TOMOSYNTHESIS WITH CAD (BILATERAL) (03/09/2018 10:46 AM EDT) Anatomical Region Laterality Modality Breast Left, Breast Right, Breast Bilateral Bila teral Mammography 03/09/2018 11:0 8 AM EDT Impressions 03/09/2018 11:44 AM EDT Mass lesion with associated microcalcifications in the right breast at the approximate 9 o'clock position, displaying mammographic and sonographic findings highly suspicious for malignancy. Ultrasound-guided needle biopsy is recommended. The circumscribed lesions in the left breast represents cysts on ultrasound and could be followed on routine screening mammography. The results of this examination and recommendations were discussed at length with the patient and subsequently with Dr. Arteaga. BI-RADS CATEGORY: 5 - Highly Suggestive of Malignancy. Appropriate action should be taken. DENSITY: The breast tissue is heterogeneously dense, an appearance which lowers the sensitivity of mammography. RIGHT RECOMMENDATION DATE: 1 Month Biopsy LEFT RECOMMENDATION DATE: 12 Months Mammography Screening POS - [id number] Narrative 03/09/2018 11:44 AM EDT Comparison is made with prior study of 02/17/2018. A full-field mediolateral view of the left breast was performed, revealing the presence of a smoothly circumscribed lesion at the approximate 9 o'clock position, as demonstrated on the prior study. This was subsequently assessed on ultrasound and found to represent a simple cyst. Full-field mediolateral C-view and tomographic, and spot compression craniocaudal and mediolateral 2-D and tomographic images were obtained of the lateral right breast. This reveals the presence of architectural distortion multiple pleomorphic-type microcalcifications at the approximate 9 o'clock position. This was subsequently assessed on ultrasound and found to represent an irregularly-marginated hypoechoic mass, strongly suspicious for malignancy. us Tierra Devries MD IMG MG EXAMS Final Result documented in this encounter Visit Diagnoses Diagnosis Abnormal mammogram Abnormal mammogram, unspecified Abnormal mammogram Abnormal mammogram, unspecified Abnormal mammogram Abnormal mammogram, unspecified documented in this encounter Additional Health Concerns Infection Onset Date Last Indicated Resolved Time CoV-Risk 09/01/2021 09/01/2021 09/11/2021 1:24 AM EST CoV-Risk 01/01/2022 01/01/2022 01/12/2022 1:24 AM EDT CoV-Risk 08/31/2022 08/31/2022 09/11/2022 1:22 AM EST COVID-19 04/24/2024 04/24/2024 05/15/2024 1:21 AM EDT Assessment Noted Time PHQ-2 Depression Total Score: 0 11/12/19 18 3:55 PM EDT documented as of this encounter Care Teams Core Layer Machine Operator Relationship Specialty Start Date End Date Guzman Arteaga MD [address] [place] [address] 7 [place] [address] PCP - General Family Medicine 09/05/17 03/16/23 Richard Andrews MD [address] [place] [address] [email or web address] PCP - Hematology/Oncology Hematology and Oncology 01/03/20 Megha Flowers FNP [address] [place] [address] 7 [place] [address] [email or web address] PCP - General Family Medicine 03/17/23 Self-Referred, Patient Referring Physician 03/29/18 Marisa De Anda MD [address] [place] [address] [email or web address] Surgical Oncology 03/29/18 Sania Zarate PA-C [address] [place], [place] [phone] [place] [address] [email or web address]@[email or web address] Surgical Oncology 03/29/18 Hemal Rodriguez MD, PhD [address] [place] [address] [email or web address] Hematology and Oncology 03/29/18 Saranya Treadwell, BLANQUITA [address] [place] [address] Internal Medicine 03/29/18 Silvana Oakes MD [address] [place] [address] [email or web address] Radiation Oncology 06/01/18 Sophie Martins, YOSELIN [address] [place] [address] [email or web address] Primary Infusion Nurse 07/17/18 Linn Menon, [address] [email or web address] Agriculturist Oncology 07/28/18 Malik Perez MD [address] [place] [address] [email or web address] Plastic and Reconstructive Surgery 10/25/19 Royal Daniels MD [address] [place] [address] Gynecology 10/25/19 documented as of this encounter Additional Source Comments The information contained in this document represents components of the legal health record. It is not the complete legal health record.[facility]
--- OUTSIDE RECORDS SUMMARY | 2025-06-20 19:45 | XMS_ITS | Encounter Summary ---
Author Organization [facility] Address [address] [facility] [address] [place] [address] Phone Care Team Providers Care Light Armored Vehicle Officer Name Role Phone Guzman Arteaga MD Primary Care Provider [phone] Self-Referred, Patient Unavailable Unavailab Marisa Mcnally MD Unavailable + [phone] Sania Zarate PA-C Unavailable [phone] Hemal Rodriguez MD, PhD Unavailable + [phone] Saranya Treadwell NP Unavailable Unavai Silvana Florez MD Unavailable Sophie Martins RN Unavailable [phone] Linn Menon [facility] Unavailable Malik Perez MD Unavailable [phone] Royal Daniels MD Unavailable [phone] Richard Andrews MD Unavailable Megha Flowers Primary Care Provider [phone] Encounter Details Date Type Department Care Team (Late st Contact Info) Description 08/11/2020 Procedure Pass [facility] [address] [facility] 2nd [place] [address] Social History Tobacco Use Types Packs/Day Years [...] Info) Description 01/02/2025 Procedure Pass [facility] [place], Mammography, Prerna Lank Imaging Department [address] [place] [address] 07/01/2025 8:45 AM EST Office Visit [facility] Plastic Surgery 40 [place] [address] Kunal Navarro MD [address] [place] [address] [email or web address] 07/18/2025 3:00 PM EST Office Visit [facility] [address] [place] [address] Megha Flowers, MDM DEVELOPER [address] [address] 08/14/2025 Procedure Pass OR Admitting Dept - Virtual Department 30 [place] [address] 08/14/2025 12:02 PM EST Hospital Encounter OR Admitting Dept - Virtual Department [address] [place] [address] Kunal Navarro MD [address] [place] [address] 08/14/2025 12:02 PM EST - 08/14/2025 2:27 PM EST Surgery OR Admitting Dept - Virtual Department 30 [place] [address] Kunal Navarro MD [address] [place] [address], [address] [phone] [email or web address] CAPSULOTOMY BREAST 01/08/2026 2:00 PM EDT Appointment [facility], Mammography, Prerna Lank Imaging Department [address] [place] [address] Maryse Aparicio PA-C [address] [place] [address] [email or web address] Hemal Rodriguez MD, PhD [address] [place] [address] [email or web address] 01/08/2026 3:00 PM EDT Office Visit [facility], [facility], [address] 9th [place] [address] Hemal Rodriguez MD, PhD [address] [place] [phone] [email or web address] Scheduled Procedures Name Priority Associated Diagnoses Date/Ti me CAPSULOTOMY BREAST Breast asymmetry between [place] breast and reconstructed breast 08/14/2025 12:02 PM EST EXCHANGE IMPLANT BREAST Breast asymmetry between [place] breast and reconstructed breast 08/14/2025 12:02 PM [...] documented as of this encounter Care Teams Light Armored Vehicle Officer Relationship Specialty Start Date End Date Guzman Arteaga MD [address] [place] [address] 7 [place] [address] [email or web address] PCP - General Family Medicine 09/05/17 03/16/23 Richard Andrews MD [address] [place] [address] [email or web address] PCP - Hematology/Oncology Hematology and Oncology 01/03/20 Megha Flowers FNP [address] [place] [address] 7 [place] [address] [email or web address] PCP - General Family Medicine 03/17/23 Self-Referred, Patient Referring Physician 03/29/18 Marisa De Anda MD [address] [place] [address] [email or web address] Surgical Oncology 03/29/18 Sania Zarate PA-C [address] [place] [id number] [place] [address] [email or web address]@[facility] Surgical Oncology 03/29/18 Hemal Rodriguez MD, PhD [address] [place] [address] [email or web address] Hematology and Oncology 03/29/18 Saranya Treadwell NP [address] [place] [address] Internal Medicine 03/29/18 Silvana Oakes MD [address] [place] [address] [email or web address] Radiation Oncology 06/01/18 Sophie Martins, YOSELIN [address] [place] [address] [email or web address] Primary Infusion Nurse 07/17/18 Linn Menon, [address] [address] [email or web address] Comsec Manager Oncology 07/28/18 Malik Perez MD [address] [place] [address] [email or web address] Plastic and Reconstructive Surgery 10/25/19 Royal Daniels MD [address] [place] [address] Gynecology 10/25/19 documented as of this encounter Additional Source Comments The information contained in this document represents components of the legal health record. It is not the complete legal health record.[facility]
--- OUTSIDE RECORDS SUMMARY | 2025-06-20 19:45 | XMS_ITS | Encounter Summary ---
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 Name Role Phone Guzman Arteaga MD Primary Care Provider [phone] Self-Referred, Patient Unavailable Unavailab Marisa Mcnally MD Unavailable + [phone] Sania Zarate PA-C Unavailable [phone] Hemal Rodriguez MD, PhD Unavailable + [phone] Saranya Treadwell NP Unavailable Unavai Silvana Florez MD Unavailable Sophie Martins RN Unavailable [phone] Linn Menon [facility] Unavailable [phone] Malik Perez MD Unavailable [phone] Royal Daniels MD Unavailable [phone] Richard Andrews MD Unavailable Megha Flowers Primary Care Provider [phone] Encounter Details Date Type Department Care Team (Late st Contact Info) Description 08/06/2019 Procedure Pass [facility] Periop [address] [place] [address] Social History Tobacco Use Types Packs/Day Years [...] Info) Description 01/02/2025 Procedure Pass [facility], Mammography, Prerna [facility] Imaging Department [address] [place] [address] 07/01/2025 8:45 AM EST Office Visit [facility] Plastic Surgery [address] [place] [address] Kunal Navarro MD [address] [place] [address], [address] [address] [email or web address] 07/18/2025 3:00 PM EST Office Visit [facility] Medicine [address] [place] [address] Megha Flowers FNP [address] [facility] [address] [place] [address] 08/14/2025 Procedure Pass [place] Admitting Dept - Virtual Department [address] [place] [address] 08/14/2025 12:02 PM EST Hospital Encounter OR Admitting Dept - Virtual Department [address] [place] [address] Kunal Navarro MD [address] [place] [address], [address] [place] [address] [email or web address] 08/14/2025 12:02 PM EST - 08/14/2025 2:27 PM EST Surgery OR Admitting Dept - Virtual Department [address] [place] [address] Kunal Navarro MD [address] [place] [address], [address] [place] [address] [email or web address] CAPSULOTOMY BREAST 01/08/2026 2:00 PM EDT Appointment [facility], Mammography, Prerna [facility] Imaging Department [address] [place] [address] Maryse Aparicio PA-C [address] [place] [address] [email or web address] Hemal Rodriguez MD, PhD [address] [place] [address] [email or web address] 01/08/2026 3:00 PM EDT Office Visit [facility], [facility], [address] 9th [place] [address] Hemal Rodriguez MD, PhD [address] [place] [address] [email or web address] Scheduled Procedures Name Priority Associated Diagnoses [...] documented as of this encounter Care Teams Day [employer] Charter Bus Driver Relationship Specialty Start Date End Date Guzman Arteaga MD [address] [place] [address], [facility] [address] [place] [address] [email or web address] PCP - General Family Medicine 09/05/17 03/16/23 Richard Andrews MD [address] [place] [address] [email or web address] PCP - Hematology/Oncology Hematology and Oncology 01/03/20 Megha Flowers FNP [address] [place] [address] [address] [place] [address] [email or web address] PCP - General Family Medicine 03/17/23 Self-Referred, Patient Referring Physician 03/29/18 Marisa De Anda MD [address] [place] [address] [email or web address] Surgical Oncology 03/29/18 Sania Zarate PA-C [address] [place] [address] [email or web address] Surgical Oncology 03/29/18 Hemal Rodriguez MD, PhD [address] [place] [address] [email or web address] Hematology and Oncology 03/29/18 Saranya Treadwell NP [address] [place] [address] Internal Medicine 03/29/18 Silvana Oakes MD [address] [place] [address] [email or web address] Radiation Oncology 06/01/18 Sophie Martins, YOSELIN [address] [place] [address] [email or web address] Primary Infusion Nurse 07/17/18 Linn Menon, [address] [address] [email or web address] Forklift Operator Oncology 07/28/18 Malik Perez MD [address] [place] [address] [email or web address] Plastic and Reconstructive Surgery 10/25/19 Royal Daniels MD [address] [place] [address] Gynecology 10/25/19 documented as of this encounter Additional Source Comments The information contained in this document represents components of the legal health record. It is not the complete legal health record.[facility]
--- OUTSIDE RECORDS SUMMARY | 2025-06-20 19:46 | XMS_ITS | Encounter Summary ---
Author Organization [facility] Address [address] [facility] [address] [place] [address] Phone Care Team Providers Care Ruby Software Developer Name Role Phone Guzman Arteaga MD Primary Care Provider [phone] Self-Referred, Patient Unavailable Unavailab Marisa Mcnally MD Unavailable + [phone] Sania Zarate PA-C Unavailable [phone] Hemal Rodriguez MD, PhD Unavailable + [phone] Saranya Treadwell NP Unavailable Unavai Silvana Florez MD Unavailable Sophie Martins RN Unavailable [phone] Linn Menon [facility] Unavailable [phone] Malik Perez MD Unavailable [phone] Royal Daniels MD Unavailable [phone] Richard Andrews MD Unavailable Megha Flowers Primary Care Provider [phone] Encounter Details Date Type Department Care Team (Late st Contact Info) Description 12/22/2022 Ancillary Orders [facility], [facility], [facility] [address] [address] Hemal Rodriguez MD, PhD [address] [place] [address] [email or web address] Malignant neoplasm of right female breast, unspecified estrogen receptor status, unspecified site of breast Social History Tobacco Use Types Packs/Day Years [...] high school, GED, job training, learning the [place] language, technical skills, or developing parenting skills)? [...] situation today? I have nash jean baptiste 12/02/2021 How many times have you moved in the past 12 mon ths? One time 12/02/2021 Paying for Meds [...] st Contact Info) Description 01/02/2025 Procedure Pass [facility] [place], Mammography, Prerna Lank Imaging Department [address] [place] [address] 07/01/2025 8:45 AM EST Office Visit [facility] Plastic Surgery [address] [place] [address] Kunal Navarro MD [address] [place] [address] 07/18/2025 3:00 PM EST Office Visit [facility] [address] [place] [address] Megha Flowers FNP [address] [address] 08/14/2025 Procedure Pass OR Admitting Dept - Virtual Department [address] [place] [address] 08/14/2025 12:02 PM EST Hospital Encounter OR Admitting Dept - Virtual Department [address] [place] [address] Kunal Navarro MD [address] [place] [address] 08/14/2025 12:02 PM EST - 08/14/2025 2:27 PM EST Surgery OR Admitting Dept - Virtual Department [address] [place] [address] Kunal Navarro MD [address] [place] [address], [address] [address] CAPSULOTOMY BREAST 01/08/2026 2:00 PM EDT Appointment [facility], Mammography, Pre[facility]na [facility] Imaging Department [address] [place] [address] Maryse Aparicio PA-C [address] [place] [address] [email or web address] Hemal Rodriguez MD, PhD [address] [place] [address] [email or web address] 01/08/2026 3:00 PM EDT Office Visit [facility], [facility], [address] 9[address] [place] [address] Hemal Rodriguez MD, PhD [address] [place] [address] [email or web address] Scheduled Procedures Name Priority Associated Diagnoses Date/Ti me CAPSULOTOMY BREAST Breast asymmetry between [place] breast and reconstructed breast 08/14/2025 12:02 PM EST EXCHANGE IMPLANT BREAST Breast asymmetry between [place] breast and reconstructed breast 08/14/2025 12:02 PM EST documented as of this encounter Results * BI MAMMOGRAM SCREENING WITH TOMOSYNTHESIS WITH CAD (LEFT) (12/22/2022 3:16 PM EDT) Anatomical Region Laterality Modality Breast Left, Breast Bilateral Left Ma mmography Other 12/22/2022 3:45 PM EDT Impressions 12/22/2022 3:47 PM EDT No mammographic evidence of malignancy. Recommend routine screening. The patient was sent a letter with the results of the exam and follow-up recommendation. OVERALL ASSESSMENT -- BI-RADS 2 BENIGN Narrative 12/22/2022 3:47 PM EDT Reason for exam: Screening. Prior right mastectomy for breast cancer. No new breast complaints. TECHNIQUE: Digital Mammography and tomosynthesis were used to obtain images. Computer Aided Detection was used to aid in interpretation and volumetric breast density assessment may have been used as an aid in evaluating breast density. COMPARISON: Comparison is made with relevant prior imaging in PACS. Breast Composition: scattered areas of fibroglandular density. FINDINGS: Left Breast: No significant masses, suspicious calcifications, or other abnormalities are seen. Postsurgical changes from prior reduction mammoplasty are stable. Procedure Note Renny King MD - 12/22/2022 Reason for exam: Screening. Prior right mastectomy for breast cancer. No new breastcomplaints. TECHNIQUE: Digital Mammography and tomosynthesis were used to obtain images. ComputerAided Detection was used to aid in interpretation and volumetric breastdensity assessment may have been used as an aid in evaluating breastdensity. COMPARISON: Comparison is made with relevant prior imaging in PACS. Breast Composition: scattered areas of fibroglandular density. FINDINGS: Left Breast: No significant masses, suspicious calcifications, or other abnormalitiesare seen. Postsurgical changes from prior reduction mammoplasty arestable. IMPRESSION: No mammographic evidence of malignancy. Recommend routine screening. The patient was sent a letter with the results of the exam and follow-uprecommendation. OVERALL ASSESSMENT -- BI-RADS 2 BENIGN us Hemal Rodriguez MD, PhD IMG MG EXAMS Final Result documented in this encounter Visit Diagnoses Diagnosis Malignant neoplasm of right female breast, unspecified estrogen receptor status, unspecified site of breast Malignant neoplasm of right female breast, unspecified estrogen receptor status, unspecified site of breast documented in this encounter Additional Health Concerns Infection Onset Date Last Indicated Resolved Time COVID-19 04/24/2024 04/24/2024 05/15/2024 1:21 AM EDT Assessment Noted Time PHQ-2 Depression Total Score: 0 12/03/19 22 8:52 AM EDT documented as of this encounter Care Teams Ruby Software Developer Relationship Specialty Start Date End Date Guzman Arteaga MD [address] [place] [address] 7 [place] [address] PCP - General Family Medicine 09/05/17 03/16/23 Richard Andrews MD [address] [place] [address] [email or web address] PCP - Hematology/Oncology Hematology and Oncology 01/03/20 Megha Flowers FNP [address] [place] [address], [address] [place] [address] [email or web address] PCP - General Family Medicine 03/17/23 Self-Referred, Patient Referring Physician 03/29/18 Marisa De Anda MD [address] [place] [address] [email or web address] Surgical Oncology 03/29/18 Sania Zarate PA-C [address] [place] [address] [email or web address] Surgical Oncology 03/29/18 Hemal Rodriguez MD, PhD [address] [place] [address] [email or web address] Hematology and Oncology 03/29/18 Saranya Treadwell NP [address] [place] [address] Internal Medicine 03/29/18 Silvana Oakes MD [address] [place] [address] [email or web address] Radiation Oncology 06/01/18 Sophie Martins, YOSELIN [address] [place] [address] [email or web address] Primary Infusion Nurse 07/17/18 Linn Menon, [address], ASB1- L2 [place] [address] [email or web address] Edge Polisher Oncology 07/28/18 Malik Perez MD [address] [place] [address] [email or web address] Plastic and Reconstructive Surgery 10/25/19 Royal Daniels MD [address] [place] [address] Gynecology 10/25/19 documented as of this encounter Additional Source Comments The information contained in this document represents components of the legal health record. It is not the complete legal health record.[facility]
--- OUTSIDE RECORDS SUMMARY | 2025-06-20 19:46 | XMS_ITS ---
Author Organization [facility] Address [address] [employer] [facility] [address] [place] [address] Phone Care Team Providers Care Ginseng Farmer Name Role Phone Self-Referred, Patient Unavailable Unavailab Marisa Mcnally MD Unavailable [phone] Sania Zarate PALuxC Unavailable [phone] Hemal Rodriguez MD, PhD Unavailable [phone] Saranya Treadwell CUSTOMS AND IMMIGRATION OFFICER Unavailable Unavai Silvana Florez MD Unavailable Sophie Martins RN Unavailable [phone] Linn Menon [facility] Unavailable Malik Perez MD Unavailable [phone] Royal Daniels MD Unavailable [phone] Richard Andrews MD Unavailable Megha Flowers [facility] Primary Care Provider Active Problems Patient Care Coordination No te Formatting of this note migh t be different from the original. Height 156.3cm no shoes taken by OC 01/17/20 mauriceman scalp cooler Problem Noted Date Diagnosed Date Anxiety 05/24/2025 OAB (overactive bladder) 07/17/2024 Assessment & Plan (07/17/2024 8:48 AM EST): She does not want medication for this. Bladder UL was normal, no post void residual / [place]. She will discuss with oncology whether she is a candidate to discontinue tamoxifen, which she feels may be contributing with the sx. Attention deficit disorder (ADD) without hyperac tivity 01/17/2024 Assessment & Plan (07/17/2024 8:48 AM EST): Decrease adderall to 15 mg - if still feeling too stimulated we can reduce back to 10 mg daily, however overall she does note less brain fog when increased from 10 mg dosage a year ago. Orders: dextroamphetamine-amphetamine (ADDERALL XR) 15 MG 24 hr capsule; Take 1 capsule (15 mg total) by mouth every morning. Assessment & Plan (01/17/2024 5:56 PM EDT): Well controlled, continue adderall XR 20 mg daily Bilateral bunions 12/03/2021 Bunion 10/27/2021 Obstructive sleep apnea syndrome 12/11/2020 Assessment & Plan (08/30/2023 1:57 PM EST): Recently had a new sleep study which confirmed the LEO. Considering to try CPAP again. Assessment & Plan (12/20/2020 9:12 PM EDT): Once equipped in appropriate CPAP machine use it nightly. Work hard on keeping body weight in ideal range for her height. Sleep hygiene. Rotator cuff arthropathy, left 12/11/2020 Assessment & Plan (12/20/2020 9:16 PM EDT): Joint protection, energy conservation. Gentle, regular exercise routine after warm pack or warm shower-examples of exercises with detailed instructions and pictures printed for home use. If not better or worse may need to consider formal PT or local steroid injection. Hand arthritis 07/17/2020 Assessment & Plan (12/20/2020 9:15 PM EDT): No signs of early inflammatory changes on physical examination labs or hands and feet x-rays from June 2020. Joint protection, energy conservation. Avoid falls, injuries, overuse. Use warm pack versus warm shower prior to gentle, regular exercise routine. I printed her examples of hand exercises with pictures and detailed instructions to start at home as she preferred that over formal OT. Call if questions, problems, worse or not better. Assessment & Plan (07/20/2020 5:54 PM EST): New set of labs in x-rays requested to check for early inflammatory changes though based on physical examination there is little to support at this time. Joint protection, energy conservation,. Avoid falls, injuries, overuse. Use warm pack versus warm shower prior to gentle, regular exercise routine. I printed her examples of hand exercises with pictures and detailed instructions to start at home as she preferred that over formal OT. Call if questions, problems, worse or not better. Pain in both feet 07/17/2020 Assessment & Plan (12/11/2020 3:23 PM EDT): Well fitting, supportive shoes. Avoid falls, injuries, overuse. Gentle, regular exercise routine. Keep body weight in ideal range for her height. Use foot spa every night prior to bed rest followed by topical cream such as Aspercreme, Arnica, Biofreeze, Voltaren versus medicated patches such as Salonpas or IcyHot patch. Consider acupressure. Call if worse or with questions. Assessment & Plan (07/20/2020 5:53 PM EST): Well fitting, supportive shoes. Avoid falls, injuries, overuse. Gentle, regular exercise routine. Keep body weight in ideal range for her height. Use foot spa every night prior to bed rest followed by topical cream such as Aspercreme, Arnica, Biofreeze, Voltaren versus medicated patches such as Salonpas or IcyHot patch. Consider acupressure. Call if worse or with questions. Vaginal atrophy 04/26/2020 Overview (04/26/2020): Ring forceps needed for ring removal. Assessment & Plan (07/09/2021 2:54 PM EST): Estring removed today. Sharron will try Vagifem due to insurance coverage. She has Rx at home, medication instructions reviewed. She will f/u if atrophy symptoms return and we will submit prior auth to resume Estring. Assessment & Plan (04/14/2021 11:21 AM EDT): Estring removed/replaced. Discussed use of moisture barrier in addition and consideration for vaginal dilator use. Assessment & Plan (01/12/2021 10:52 AM EDT): Estring removed/replaced without issue. Assessment & Plan (08/05/2020 6:02 PM EST): Estring removed easily. Rx refilled. Call PRN if issue at pharmacy has to do with something our office can address. Assessment & Plan (04/26/2020 8:23 PM EDT): Well managed with Estring. Rx refilled, continue visits q3 months for ring removal/replacement. 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 Assessment & Plan (07/20/2020 5:47 PM EST): Continue Synthroid exactly as prescribed and follow closely with prescribing physician as scheduled. Menopause syndrome 05/25/2019 Assessment & Plan (07/17/2024 8:48 AM EST): OK to reduce celexa to 5 mg daily by splitting the tablet - she notes feeling emotionally blunted. If she experiences discontinuation symptoms, we may need to plan a more gradual taper. As long as not experiencing worsened mood or hot flashes, OK to DC celexa after 2 weeks at the 5 mg dose as this was started primarily for menopausal symptoms. Assessment & Plan (01/17/2024 5:55 PM EDT): She is taking celexa 10 mg daily and gabapentin 100 mg nightly with some benefit but these continue to be problematic. We could consider slight increase in celexa dosage however additional options are limited. Assessment & Plan (01/12/2021 10:52 AM EDT): Uses topical progesterone Rx by naturopathic provider, cleared with with oncologist prior to starting. Paroxysmal atrial fibrillation 06/12/2018 Assessment & Plan (01/17/2024 5:54 PM EDT): Single episode in 2018 and symptom free since then. Assessment & Plan (11/15/2019 9:22 AM EDT): One episode of paroxysmal atrial fibrillation that needed cardioversion in the ER. One short episode palpitations while on higher doses of levothyroxine and off metoprolol. I discussed her case verbally with Dr. Lou will proceed with starting her on metoprolol tartrate 12.5 mg p.o. twice daily. Orthostatic precautions reviewed with patient's. Advised her to call the office if any further episodes of palpitations or any other symptoms concerning for A. fib. No need for anticoagulation at this time due to low [id number] score of 1. Assessment & Plan (06/19/2018 2:48 PM EDT): One episode of paroxysmal atrial fibrillation that needed cardioversion in the ER. She is currently in sinus rhythm and denies any symptomatic palpitations. Continue Toprol-XL for now. No need for anticoagulation at this time due to low chads VASC score of 1. She is going to undergo chemotherapy. We will repeat an echocardiogram in 6 months to make sure his EF stays normal. If your chemotherapy regimen require sooner follow-up with echocardiograms please let us know Breast cancer in female 05/22/2018 Cancer Staging:Clinical stage from 08/11/2018:Stage IIA(cT2, cN0, cM0, [place]: G3, ER: Positive, DC: Positive, HER2: Equivocal, Oncotype DX score: 40) - Unsigned Pathologic stage from 08/11/2018: pT2(2), pN1(sn), cM0, [place]: G3 - Unsigned Assessment & Plan (07/20/2020 5:47 PM EST): Carefully continue tamoxifen as prescribed and follow closely with prescribing oncologist as scheduled. Malignant neoplasm of upper- outer quadrant of right female breast 03/17/2018 Overview (03/17/2018): Invasive ductal carcinoma right breast, grade 2, diagnosed 03/16/2018 Assessment & Plan (12/20/2020 9:10 PM EDT): Continue tamoxifen to complete 5 years of therapy and close follow-up with treating oncologist. Do regular breast self exams and mammography as scheduled. Assessment & Plan (03/22/2018 2:39 PM EDT): - arrangements for outpt treatment - will want to r/o PE with this hx Eczema 11/11/2017 Mild intermittent asthma without complication Assessment & Plan (01/17/2024 5:54 PM EDT): Well controlled, continue flovent singulair and albuterol Assessment & Plan (08/30/2023 1:58 PM EST): Mostly with URIs Hypothyroid 10/19/2017 Assessment & Plan (01/17/2024 5:55 PM EDT): TSH Date Value Ref Range Status 07/12/2023 0.95 0.27 - 4.20 uIU/mL Final Assessment & Plan (03/22/2018 2:37 PM EDT): - will discuss taking thyroid dose on empty stomach bc tsh mildly elevated Seasonal allergic rhinitis due to pollen 018 Current Treatment and Therapy Plans No current plan information found. Past Treatment and Therapy Plans Oncology Therapy Plan Plan Name Start Date Discontinue Date Treatment Medications Discontinue Reason Plan Provider SCALP COOLING MACHINE AND SUPPORTIVE CARE MEDICATIONS 09/28/2018 10/25/2019 leuprolide acetate (3 month) (LUPRON DEPOT 3 MONTH) a. Therapy Complete Saranya Treadwell NP Oncology Therapy Plan Supplemental Plan Name Start Date Discontinue Date Treatment Medications Discontinue Reason Plan Provider LEUPROLIDE ACETATE 3 MONTH (LUPRON DEPOT 3 MONTH) 10/25/2019 02/19/2025 leuprolide (LUPRON) a. Therapy Complete Richard Andrews MD TREATMENT PLAN Plan Name Start Date Discontinue Date Treatment Medications Discontinue Reason Plan Provider Cycles ACT - DOXORUBICIN 60 MG/M2/CYCLOPHO SPHAMIDE 600 MG/M2 EVERY 2 WEEKS/PACLITAX EL 175 MG/M2 EVERY 2 WEEKS 07/17/20 18 10/18/2020 cycloPHOSphamide (CYTOXAN) infusion 250 mL (powder vial)DOXOrubicin (ADRIAMYCIN)PACLit ann (TAXOL) IVPB in 500 mL (Doses GREATER than 199 mg) a. Therapy Complete Hemal Rodriguez MD, PhD 8 of 8 cycles started Lifetime Dose Tracking * Chemical Lifetime Dose Automatic Entry Manual Entr y doxorubicin 239.627 mg/m2 (384 mg) 239.627 mg/m2 (384 mg) 0 mg/m2 (0 mg) Resolved Problems Problem Noted Date Diagnosed Date Resolved Date Hypertension 04/15/2021 08/30/2023 Elevated blood pressure reading 01/23/2021 08/30/2023 Sprain of left rotator cuff capsule 12/11/2020 12/11/2020 History of atrial fibrillation 09/28/2019 04/26/2020 Depression with anxiety 07/12/2019 04/02/2022 Assessment & Plan (12/11/2020 3:24 PM EDT): Continue regular involvement in hobbies/favorite activities. Regular relaxation/meditation sessions. Positive imagery Seek formal partial psychotherapy if not better or worse. Assessment & Plan (07/20/2020 5:51 PM EST): Continue regular involvement in hobbies/favorite activities. Regular relaxation/meditation sessions. Positive imagery Seek formal partial psychotherapy if not better or worse. 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
--- OUTSIDE RECORDS SUMMARY | 2025-06-20 19:46 | XMS_ITS | Encounter Summary ---
Author Organization [facility] Address [address] [facility] [address] [place] [address] Phone Care Team Providers Care Assistant Counsel Name Role Phone Guzman Arteaga MD Primary Care Provider [phone] Self-Referred, Patient Unavailable Unavailab Marisa Mcnally MD Unavailable [phone] Sania ZarateC Unavailable [phone] Hemla Rodriguez MD, PhD Unavailable [phone] Saranya Treadwell NP Unavailable Unavai Silvana Florez MD Unavailable Sophie Martins RN Unavailable [phone] Linn Menon [facility] Unavailable [phone] Malik Perez MD Unavailable [phone] Royal Daniels MD Unavailable [phone] Richard Andrews MD Unavailable Megha Flowers LOCOMOTIVE CRANE ENGINEER Primary Care Provider [phone] Reason for Visit * Reason Onset Date Comments Chemo Teaching 12/21/2018 I talked with Berkley vaca to try to help her decide what supplements she would be able to take to help with hot flashes, in addition Effexor that she is already on. I mentioned that, looking at her medication list, she clearly has many allergies, and any herbs she adds might be allergy causing, and there is no way to predict whether she will tolerate them or not. That is aside sfom any estrogenic effects. She is thinking of taking multivitamins and antioxidents, and that is fiine. She asked about black luigiosh Encounter Details Date Type Department Care Team (Late Contact Info) Description 12/21/2018 Telephone VIRTUAL DEPARTMENT [address] [place] [address] Doreen Augustin, PharmD [address] [place] [address] [email or web address] Chemo Teaching (I talked with Sharron to try to help her decide what supplements she would be able to take to help with hot flashes, in addition Effexor that she is already on. I mentioned that, looking at her medication list, she clearly has many allergies, and any herbs she adds might be allergy causing, and there is no way to predict whether she will tolerate them or not. That is aside sfom any estrogenic effects. She is thinking of taking multivitamins and antioxidents, and that is fiine. She asked about black cohosh ) Social History Tobacco Use Types Packs/Day Years [...] Info) Description 01/02/2025 Procedure Pass [facility], Mammography, [facility] Imaging Department [address] [place] [address] 07/01/2025 8:45 AM EST Office Visit [facility] Plastic Surgery [address] [place] [address] Kunal Navarro MD [address] [place] [address], [address] [place] [address] 07/18/2025 3:00 PM EST Office Visit [facility] [address] [place] [address] Megha Flowers FNP [address] [facility], [address] [place] [address] 08/14/2025 Procedure Pass OR Admitting Dept - Virtual Department [address] [place] [phone] 08/14/2025 12:02 PM EST Hospital Encounter OR Admitting Dept - Virtual Department [address] [place] [address] Kunal Navarro MD [address] [place] [address], [address] [place] [address] 08/14/2025 12:02 PM EST - 08/14/2025 2:27 PM EST Surgery OR Admitting Dept - Virtual Department [address] [place] [address] Kunal Navarro MD [address] [place] [address], [address] [place] [address] [email or web address] CAPSULOTOMY BREAST 01/08/2026 2:00 PM EDT Appointment [facility], Mammography, [facility] Imaging Department [address] [place] [address] Maryse Aparicio PA-C [address] [place] [phone] [email or web address] Hemal Rodriguez MD, PhD [address] [place] [address] [email or web address] 01/08/2026 3:00 PM EDT Office Visit [facility], [facility] [address] [place] [address], [address] [place] [address] Hemal Rodriguez MD, PhD [address] [place] [phone] [email or web address] Scheduled Procedures Name Priority Associated Diagnoses Date/Ti me CAPSULOTOMY BREAST Breast asymmetry between [place] breast and reconstructed breast 08/14/2025 12:02 PM EST EXCHANGE IMPLANT BREAST Breast asymmetry between [place] breast and reconstructed breast 08/14/2025 12:02 PM [...] documented as of this encounter Care Teams Assistant Counsel Relationship Specialty Start Date End Date Guzman Arteaga MD [address] [place] [address], [address] [place] [address] PCP - General Family Medicine 09/05/17 03/16/23 Richard Andrews MD [address] [place] [phone] [email or web address] PCP - Hematology/Oncology Hematology and Oncology 01/03/20 Megha Flowers FNP [address] [place] [address], [address] [place] [address] [email or web address] PCP - General Family Medicine 03/17/23 Self-Referred, Patient Referring Physician 03/29/18 Marisa De Anda MD [address] [place] [id number] [email or web address] Surgical Oncology 03/29/18 Sania Zarate PA-C [address] [place] [address] [email or web address] Oncology 03/29/18 Hemal Rodriguez MD, PhD [address] [place] [address] [email or web address] Hematology [email or web address] Oncology 03/29/18 Saranya Treadwell, BLANQUITA [address] [place] [phone] Internal Medicine 03/29/18 Silvana Oakes MD [address] [place] [address] [email or web address] Radiation Oncology 06/01/18 Sophie Martins, YOSELIN [address] [place] [phone] [email or web address] Primary Infusion Nurse 07/17/18 Linn Menon, [address] [address] [email or web address] Mess Attendant Oncology 07/28/18 Malik Perez MD [address] [place] [phone] [email or web address] Plastic and Reconstructive Surgery 10/25/19 Royal Daniels MD [address] [place], [place] [id number] Gynecology 10/25/19 documented as of this encounter Additional Source Comments The information contained in this document represents components of the legal health record. It is not the complete legal health record.[facility]
--- OUTSIDE RECORDS SUMMARY | 2025-06-20 19:46 | XMS_ITS | Encounter Summary ---
Author Organization [facility] Address [address] [place] [address] Phone Care Team Providers Care Coding Spec Name Role Phone Self-Referred, Patient Unavailable Unavailab Marisa Mcnally MD Unavailable + [phone] Sania ZarateC Unavailable [phone] Hemal Rodriguez MD, PhD Unavailable + [phone] Saranya Treadwell INSULATION CUTTER Unavailable Unavai Silvana Florez MD Unavailable Sophie Martins RN Unavailable [phone] Linn Menon [facility] Unavailable Malik Perez MD Unavailable [phone] Royal Daniels MD Unavailable [phone] Richard Andrews MD Unavailable Megha Flowers [facility] Primary Care Provider Reason for Visit * Reason Onset Date Comments Triage 06/20/2025 Dog Bite Encounter Details Date Type Department Care Team (Late st Contact Info) Description 06/20/2025 Nurse Triage [facility] [address] [place] [address] Megha Flowers [facility] [address] [facility], [address] [place], [place] [id number] Triage (Dog Bite ) Social History Tobacco Use Types Packs/Day [...] high school, GED, job training, learning the American language, technical skills, or developing parenting skills)? [...] housing situation today? I have nash sing 08/30/2023 How many times have you move [...] on file documented as of this encounter Progress Notes * Francisca Dumont RN - 06/20/2025 12:16 PM EDT Reason for Disposition Any break in skin from BITE (e.g., cut, puncture, or scratch) and PET animal (e.g., dog, cat, or ferret) at risk for RABIES (e.g., sick, stray, unprovoked bite, developing country) Protocols used: Animal Makg-[id number] Nurse Triage Encounter Note Reason for Triage Sharron Santiago contacted office for Triage Dog Bite Call Disposition Go To Ed Now Disposition Comments: Patient/caregiver understands and will follow disposition: Unsure Initial Symptom Screening and Assessment IA Symptom Onset Less than 24 hours Symptom Severity Mild - does not interfere with normal activities Symptom Pattern Constant/continuous Aggravating factors or triggers Other (comment) Home Treatments None Location? RLE Fever? No Pain level No pain reported Other related symptoms patient reports riding bike this morning when a dog approached with buhr dresser and bit lower right leg. at the time, it didn't appear skin was broken, but once she got home she saw bleeding at site. Patient is uncertain if dog has been vaccinated. Skin (localized and widespread) Location? RLE Cause or source? Animal Bite Care Advice Patient/Caregiver understands and will follow care advice?: Other (comment) Animal Drll-PZKNV-BP Francisca Dumont RN [facility] Jun 20, 2025 12:22 PM Disposition and First Aid GO TO ED NOW: * You need to be seen in the Emergency Department. * Go to the ED at [facility]. * Leave now. Drive carefully. Treatment of Minor Cuts, Scratches, and Puncture Wounds CLEAN THE WOUND: * Wash all bites and scratches right away with soap and water for 5 minutes. * Then rinse the area with water for 2 to 3 minutes. * This will help decrease the chance of infection. ANTIBIOTIC OINTMENT: * Put a small amount of antibiotic ointment on the wound once a day for 3 days. * You can get this mpfb-lro-upyqwyl at a drugstore. Patient will call back with additional questions or if symptoms change or worsen Francisca Dumont RN Reason for Disposition and Assessment * Maricarmen Pop - 06/20/2025 12:07 PM EDT [facility] Top Smart Phrases: Complete the Following for ALL Patient Symptoms VCS Red [place] Yellow Green Tool Call Back Number: (& caller's name if not the patient) [phone] Description of Symptoms: What symptoms are you experiencing? Pt was bite by dog this morning, pt said small bite in the skin small amount of blood When did the symptoms start? Has this happened before? 1) Enter the Reason for Call (TRIAGE) & RFC Comment (COLOR + Symptom) (Ex: TRIAGE - YELLOW, tick bite ) 2) Select the color-based designation below before taking next steps & documenting the outcome [place] Call Designation & Outcome [place] Symptom(s): Triage (Dog Bite ) Route HIGH Priority to conference director. A nurse will call back to discuss symptoms further so as to determine best next steps. documented in this encounter Plan of Treatment Upcoming Encounters Date Type Department Care Team (Late st Contact Info) Description 01/02/2025 Procedure Pass [facility], Mammography, Pre[facility]na Lank Imaging Department [address] [place] [address] 07/01/2025 8:45 AM EST Office Visit [facility] Plastic Surgery [address] [place] [address] Kunal Navarro MD [address] [place] [address] 07/18/2025 3:00 PM EST Office Visit [facility] [address] [place] [address] Megha Flowers, HEAD OF ACQUISITIONS [address] [facility], [address] [place] [address] 08/14/2025 Procedure Pass OR Admitting Dept - Virtual Department [address] [place] [address] 08/14/2025 12:02 PM EST Hospital Encounter OR Admitting Dept - Virtual Department [address] [place] [address] Kunal Navarro MD [address] [place] [address], [address] [address] 08/14/2025 12:02 PM EST - 08/14/2025 2:27 PM EST Surgery OR Admitting Dept - Virtual Department [address] [place] [address] Kunal Navarro MD [address] [place] [address], [address] [address] [email or web address] CAPSULOTOMY BREAST 01/08/2026 2:00 PM EDT Appointment [facility], Mammography, Prerna Lank Imaging Department [address] [place] [address] Maryse Aparicio PA-C [address] [place] [address] [email or web address] Hemal Rodriguez MD, PhD [address] [place] [address] [email or web address] 01/08/2026 3:00 PM EDT Office Visit [facility], [facility], [facility] [address] [place] [address], [address] [place] [address] Hemal Rodriguez MD, PhD [address] [place] [phone] [email or web address] Scheduled Procedures Name Priority Associated Diagnoses Date/Ti me CAPSULOTOMY BREAST Breast asymmetry between cherokee breast and reconstructed breast 08/14/2025 12:02 PM EST EXCHANGE IMPLANT BREAST Breast asymmetry between cherokee breast and reconstructed breast 08/14/2025 12:02 PM EST documented as of this encounter Visit Diagnoses Not on filedocumented in this encounter Additional Health Concerns Assessment Noted Time PHQ-2 Depression Total Score: 0 05/22/20 25 2:06 PM EDT documented as of this encounter Care Teams Coding Spec Relationship Specialty Start Date End Date Richard Andrews MD [address] [place] [address] [email or web address] PCP - Hematology/Oncology Hematology and Oncology 01/03/20 Megha Flowers FNP [address] [place] [address], [address] [place] [address] [email or web address] PCP - General Family Medicine 03/17/23 Self-Referred, Patient Referring Physician 03/29/18 Marisa De Anda MD [address] [place] [address] [email or web address] Surgical Oncology 03/29/18 Sania Zarate PALuxC [address] [place], [place] [address] [id number] [place] [address] [email or web address] Surgical Oncology 03/29/18 Hemal Rodriguez MD, PhD [address] [place], [place] [email or web address] Hematology and Oncology 03/29/18 Saranya Treadwell, INSULATION CUTTER [address] [place] [address] Internal Medicine 03/29/18 Silvana Oakes MD [address] [place] [phone] [email or web address] [email or web address] Oncology 06/01/18 Sophie Martins, YOSELIN [address] [place] [address] [email or web address] Primary Infusion Nurse 07/17/18 Linn Menon, [address] [address] [email or web address] Sane Rn Oncology 07/28/18 Malik Perez MD [address] [place] [address] [email or web address] Plastic and Reconstructive Surgery 10/25/19 Royal Daniels MD [address] [place] [address] Gynecology 10/25/19 documented as of this encounter Additional Source Comments The information contained in this document represents components of the legal health record. It is not the complete legal health record.[facility]
--- OUTSIDE RECORDS SUMMARY | 2025-06-20 19:46 | XMS_ITS | Encounter Summary ---
Author Organization [facility] Address [address] [facility] [address] [place] [phone] Phone Care Team Providers Care Vegetable Worker Name Role Phone Self-Referred, Patient Unavailable Unavailab Marisa Mcnally MD Unavailable [phone] Sania Zarate PALuxC Unavailable [phone] Hemal Rodriguez MD, PhD Unavailable [phone] Saranya Treadwell GALLERY OR MUSEUM TECHNICIAN Unavailable Unavai Silvana Florez MD Unavailable Sophie Martins RN Unavailable [phone] Gavin Menon [facility] Unavailable Malik Perez MD Unavailable [phone] Royal Daniels MD Unavailable [phone] Richard Andrews MD Unavailable Megha Flowers [facility] Primary Care Provider Encounter Details Date Type Department Care Team (Late st Contact Info) Description 11/20/2024 Procedure Pass OR Admitting Dept - Virtual Department [address] [place] [address] Social History Tobacco Use Types Packs/Day Years [...] high school, GED, job training, learning the [place] language, technical skills, or developing parenting skills)? [...] as food, clothing, or medical care? No 05/01/2024 In the past 12 months have y ou been in a relationship with a person who hurts, threatens, or tries to control you? No 05/01/2024 Are you denied basic needs s uch as food, clothing, or medical care? No 05/01/2024 In the past 12 months have y ou been in a relationship with a person who hurts, threatens, or tries to control you? No 05/01/2024 Comments No Sex and Gender Information Value [...] st Contact Info) Description 01/02/2025 Procedure Pass [facility], Mammography, Prerna Lank Imaging Department [address] [place] [address] 07/01/2025 8:45 AM EST Office Visit [facility] Plastic Surgery [address] [place] [address] Kunal Navarro MD [address] [place] [address] 07/18/2025 3:00 PM EST Office Visit [facility] Medicine [address] [place] [address] Megha Flowers FNP [address] [facility], [facility] [address] [place] [address] 08/14/2025 Procedure Pass OR Admitting Dept - Virtual Department [address] [place] [address] 08/14/2025 12:02 PM EST Hospital Encounter OR Admitting Dept - Virtual Department [address] [place] [address] Kunal Navarro MD [address] [place] [address], [address] [place] [address] 08/14/2025 12:02 PM EST - 08/14/2025 2:27 PM EST Surgery OR Admitting Dept - Virtual Department [address] [place] [address] Kunal Navarro MD [address] [place] [address], [address] [place] [address] [email or web address] CAPSULOTOMY BREAST 01/08/2026 2:00 PM EDT Appointment [facility], Mammography, Prerna Lank Imaging Department [address] [place] [address] Maryse Aparicio PA-C [address] [place] [address] [email or web address] Hemal Rodriguez MD, PhD [address] [place] [address] [email or web address] 01/08/2026 3:00 PM EDT Office Visit [facility], [facility], [address], 9[address] [place] [address] Hemal Rodriguez MD, PhD [address] [place] [phone] [email or web address] Scheduled Procedures Name Priority Associated Diagnoses Date/Ti me CAPSULOTOMY BREAST Breast asymmetry between [place] breast and reconstructed breast 08/14/2025 12:02 PM EST EXCHANGE IMPLANT BREAST Breast asymmetry between [place] breast and reconstructed breast 08/14/2025 12:02 PM EST documented as of this encounter Visit Diagnoses Not on filedocumented in this encounter Additional Health Concerns Assessment Noted Time PHQ-2 Depression Total Score: 0 07/17/20 24 8:24 AM EST documented as of this encounter Care Teams Vegetable Worker Relationship Specialty Start Date End Date Richard Andrews MD [address] [place] [address] [email or web address] PCP - Hematology/Oncology Hematology and Oncology 01/03/20 Megha Flowers FNP [address] [place] [address] [address] [place] [address] [email or web address] PCP - General Family Medicine 03/17/23 Self-Referred, Patient Referring Physician 03/29/18 Marisa De Anda MD [address] [place] [address] [email or web address] Surgical Oncology 03/29/18 Sania Zarate PALuxC [address] [place], [place] [address] [place] [address] [email or web address] [email or web address] 03/29/18 Hemal Rodriguez MD, PhD [address] [place] [address] [email or web address] Hematology and Oncology 03/29/18 Saranya Treadwell NP [address] [place] [address] Internal Medicine 03/29/18 Silvana Oakes MD [address] [place] [phone] [email or web address] Radiation Oncology 06/01/18 Sophie Martins, YOSELIN [address] [place] [address] [email or web address] Primary Infusion Nurse 07/17/18 Gavin Menon, [facility] [address] [facility], ASB[address]- [address]2 [place] [address] [email or web address] Survey Research Manager Oncology 07/28/18 Malik Perez MD [address] [place] [phone] [email or web address] Plastic and Reconstructive Surgery 10/25/19 Royal Daniels MD [address] [place] [address] Gynecology 10/25/19 documented as of this encounter Additional Source Comments The information contained in this document represents components of the legal health record. It is not the complete legal health record.[facility]
--- OUTSIDE RECORDS SUMMARY | 2025-06-20 19:46 | XMS_ITS | Clinical Summary ---
Author Organization [facility] Address [address] [facility] [address] [place] [address] Phone Care Team Providers Care Acid Polymerization Operator Name Role Phone Self-Referred, Patient Unavailable Unavailab Marisa Mcnally MD Unavailable + [phone] Sania Zarate PALuxC Unavailable [phone] Hemal Rodriguez MD, PhD Unavailable + [phone] Saranya Treadwell NP Unavailable Unavai Silvana Florez MD Unavailable Sophie Martins RN Unavailable [phone] Linn Menon [facility] Unavailable Malik Perez MD Unavailable [phone] Royal Daniels MD Unavailable [phone] Richard Andrews MD Unavailable Megha Flowers [facility] Primary Care Provider [phone] Allergies Active Allergy Reactions Criticality Noted Date Comments Latex Rash Low 04/28/2017 Mold 05/22/2025 Penicillins Hives 03/28/2018 Pt tolerates Ancef. Wasp Venom Anaphylaxis High 06/05/2024 Medications therapeutic multivitamin tablet Take 1 tablet by mouth daily. Active azelastine (OPTIVAR) 0.05 % ophthalmic solution Place 1 drop into each eye 2 (two) times a day. 18 mL 4 10/25/19 24 Active albuterol 90 mcg/actuation inhalerIndications :Mild intermittent asthma without complication Inhale 2 puffs into the lungs every 6 (six) hours as needed for wheezing. 18 g 3 01/10/20 24 Active EPINEPHrine 0.3 mg/0.3 mL auto-injector Inject 0.3 mL (0.3 mg total) into the muscle as needed for anaphylaxis. 2 each 2 05/01/20 24 Active budesonide (PULMICORT FLEXHALER) 180 mcg/actuation inhaler Active magnesium citrate solution TAKE DIRECTED Active olopatadine (PATANOL) 0.1 % ophthalmic solution Active tretinoin (ATRALIN) 0.05 % gel Active estradioL (VAGIFEM) 10 mcg TabIndications:Vag inal atrophy Place 1 tablet (10 mcg total) vaginally 2 (two) times a week. 24 tablet 3 02/29/20 25 Active montelukast (SINGULAIR) 10 mg tabletIndications: Asthma Take 1 tablet (10 mg total) by mouth every evening. 90 tablet 3 02/27/20 25 Active clindamycin-benzoy l peroxide 1.2-2.5 % GlwPIndications:Ot her acne Apply 1 Application topically daily. 50 g 1 05/22/20 25 Active citalopram (CELEXA) 20 MG tabletIndications: Anxiety Take 1 tablet (20 mg total) by mouth daily. 90 tablet 1 05/22/20 25 Active levothyroxine (SYNTHROID, LEVOTHROID) 100 MCG tabletIndications: Acquired hypothyroidism Take 1 tablet (100 mcg total) by mouth every morning. 90 tablet 3 06/06/20 25 Active dextroamphetamine- amphetamine (ADDERALL XR) 15 MG 24 hr capsuleIndications :Attention deficit disorder (ADD) without hyperactivity Take 1 capsule (15 mg total) by mouth every morning. 90 capsule 06/07/20 25 Active fluticasone propionate (FLONASE) 50 mcg/actuation nasal sprayIndications:S easonal allergic rhinitis, unspecified trigger 1 spray by Nasal route daily. 16 mL 5 01/07/20 23 025 Discontin ued(No longer taking) fluticasone propionate 110 mcg/actuation inhalerIndications :Mild intermittent asthma with exacerbation inhale 1 puff by mouth twice a day 12 g 11 05/17/20 24 Discontin ued(No longer taking) citalopram (CELEXA) 10 MG tabletIndications: Hot flashes Take 1 tablet (10 mg total) by mouth daily. 90 tablet 3 05/30/20 24 025 Discontin ued(Reord er) levothyroxine (SYNTHROID, LEVOTHROID) 100 MCG tabletIndications: Acquired hypothyroidism TAKE 1 TABLET BY MOUTH EVERY DAY IN THE MORNING 90 tablet 3 10/22/19 25 025 Discontin ued(Reord er) tamoxifen (NOLVADEX) 20 MG tabletIndications: Malignant neoplasm of right female breast, unspecified estrogen receptor status, unspecified site of breast Take 1 tablet (20 mg total) by mouth daily. 90 tablet 3 01/03/20 Discontin ued(No longer taking) clindamycin-benzoy l peroxide 1.2-2.5 % GlwP Discontin ued(Reord er) escitalopram oxalate (LEXAPRO) 10 MG tablet Discontin ued(No longer taking) fluorouraciL (EFUDEX) 5 % cream Discontin ued(No longer taking) fluticasone propion-salmeteroL (ADVAIR DISKUS) 100-50 mcg/dose DISKUS As need it Discontin ued(No longer taking) prochlorperazine (COMPAZINE) 10 MG tablet Discontin ued(No longer taking) triamcinolone acetonide (KENALOG-40) 40 mg/mL injectionIndicatio ns:Sprain of left rotator cuff capsule, initial encounter Inject 1 mL (40 mg total) into the articular space once for 1 dose. 1 mL 01/24/20 Discontin ued(No longer taking) ROPivacaine, PF, (NAROPIN) 0.5% injectionIndicatio ns:Sprain of left rotator cuff capsule, initial encounter Part of joint injection 01/24/20 Discontin ued(No longer taking) dextroamphetamine- amphetamine (ADDERALL XR) 15 MG 24 hr capsuleIndications :Attention deficit disorder (ADD) without hyperactivity Take 1 capsule (15 mg total) by mouth every morning. 90 capsule 03/06/20 25 025 Discontin ued(Reord er) dextroamphetamine- amphetamine (ADDERALL XR) 15 MG 24 hr capsuleIndications :Attention deficit disorder (ADD) without hyperactivity Take 1 capsule (15 mg total) by mouth every morning. 90 capsule 06/07/20 25 025 Discontin ued(Reord er) Active Problems Patient Care Coordination No te Formatting of this note migh t be different from the original. Height 156.3cm no shoes taken by OC 01/17/20 paxman scalp cooler Problem Noted Date Diagnosed Date [...] (07/09/2021 2:54 PM EST): Estring removed today. Melva will try Vagifem due to insurance coverage. [...] anticoagulation at this time due to low [id number] score of 1. Assessment & Plan (06/19/2018 [...] Staging:Clinical stage from 08/11/2018:Stage IIA(cT2, cN0, cM0, [place]: G3, ER: Positive, KS: Positive, HER2: Equivocal, Oncotype DX score: 40) - Unsigned Pathologic stage from 08/11/2018: pT2(2), pN1(sn), cM0, Grisel: G3 - Unsigned Assessment & Plan (07/20/2020 [...] Seasonal allergic rhinitis due to pollen 018 Resolved Problems Problem Noted Date Diagnosed Date Resolved Date Hypertension 04/15/2021 08/30/2023 Elevated blood pressure reading 01/23/2021 08/30/2023 Sprain of left rotator cuff capsule 12/11/2020 12/11/2020 History of atrial fibrillation 09/28/2019 04/26/2020 Depression with anxiety 07/12/2019 04/0 02/2022 Assessment & Plan (12/11/2020 3:24 PM EDT): [...] 10/19/2017 08/30/2023 Premenstrual dysphoric disorder 10/19/2017 07/12/2019 Encounters Date Type Department Care Team Description 06/20/2025 Nurse Triage [facility] [address] [place] [address] Megha Flowers FNP Triage (Dog Bite ) 05/22/2025 2:00 PM EDT Office Visit [facility] [address] [place] [address] Megha Flowers, KRISTINE Annual physical exam (Primary Dx); Bilateral hand pain; Anxiety; Other acne from Last 3 Months Immunizations Immunization Administration Dates Next Due COVID-19 (Pre-06/20) Pfizer Vaccine, Bivalent 12+ 07/17/2022 COVID-19 (Pre-06/20) Pfizer Vaccine, mRNA, PF 10/10/2020,09/19/2020 Hepatitis A, Unspecified 03/13/2019 INFLUENZA, SPLIT VIRUS, TRIVALENT PF 05/22/2025, 05/26/2024 Influenza Quadrivalent MDCK Preservative Free IM 07/17/2022,07/09/2016 Influenza Quadrivalent Prese rvative Free IM 06/25/2023,06/03/2021,05/08/2020,06/28,05/18/2018,06/21/2017 Influenza, Unspecified Formulation 06/25/2023, Pneumococcal conjugate PCV20 08/30/2023 Pneumococcal polysaccharide PPSV23 06/28/2019 Tdap 03/13/2019 Typhoid, ViCPs 10/05/2022 Typhoid, unspecified formulation 03/13/2019 Family History Medical History Relation Comments Basal cell carcinoma Father Hyperlipidemia Father Melanoma Father Prostate cancer Father Brain cancer Maternal Aunt Breast cancer Maternal Aunt Bone cancer Maternal Grandfather Heart disease Maternal Grandfather Prostate cancer Maternal Grandfather Arthritis Maternal Grandmother Ashkenazi Sabianism ancestry Maternal Grandmother Atrial fibrillation Mother s/p PPM Hypertension Mother Hyperthyroidism Mother Colon cancer Paternal Grandfather Prostate cancer Paternal Grandfather Prostate cancer Paternal Uncle Ovarian cancer Neg Hx Relation Status Comments Brother Alive Father Alive Maternal Aunt Maternal Grandfather Maternal Grandmother Mother Alive Paternal Grandfather Paternal Grandmother Paternal Uncle Social History Tobacco Use Types Packs/Day Years Used Date Smoking Tobacco: Former Cigarettes 1 5 1 989 - 1993 Smokeless Tobacco: Never Tobacco Cessation:Counseling Given: Not Answered Alcohol Use Standard Drinks/Week Comments Yes 1 [...] high school, GED, job training, learning the Khmer language, technical skills, or developing parenting skills)? [...] file Not on file Not on file Last Filed Vital Signs Vital Sign Reading Time Taken Comments Blood Pressure 130/70 05/22/2025 2:03 PM EDT Pulse 83 05/22/2025 2:03 PM EDT Temperature 36.4 C (97.5 F) 05/22/2025 2:03 PM EDT Respiratory Rate 16 01/02/2025 3:20 PM EDT Oxygen Saturation 98% 05/22/2025 2:03 PM EDT Inhaled Oxygen Concentration - - Weight 60.1 kg (132 lb 6.4 oz) 05/22/2025 2:03 P M EDT Height 155 cm (5' 1.02 ) 05/22/2025 2:03 PM EDT Body Mass Index 25 05/22/2025 2:03 PM EDT Plan of Treatment Upcoming Encounters Date Type Department Care Team (Late st Contact Info) Description 01/02/2025 Procedure Pass [facility], Mammography, [facility] Imaging Department [address] [place] [id number] 07/01/2025 8:45 AM EST Office Visit [facility] Pl[facility] Surgery [address] [place] [phone] Kunal Navarro MD [address] [place] [address], [address] [address] 07/18/2025 3:00 PM EST Office Visit [facility] [address] [place] [address] Lionel Megha Messer, FELLER MACHINE OPERATOR [address] [facility], [address] [place] [address] 08/14/2025 Procedure Pass OR Admitting Dept - Virtual Department [address] [place] [phone] 08/14/2025 12:02 PM EST Hospital Encounter OR Admitting Dept - Virtual Department [address] [place] [phone] Kunal Navarro MD [address] [place] [address], [address] [address] 08/14/2025 12:02 PM EST - 08/14/2025 2:27 PM EST Surgery OR Admitting Dept - Virtual Department [address] [place] [phone] Kunal Navarro MD [address] [place] [address], [address] [place] [phone] [email or web address] CAPSULOTOMY BREAST 01/08/2026 2:00 PM EDT Appointment [facility], Mammography, [facility] Imaging Department [address] [place] [phone] Maryse Aparicio PA-C [address] [place] [phone] [email or web address] Hemal Rodriguez MD, PhD [address] [place] [phone] [email or web address] 01/08/2026 3:00 PM EDT [facility], [facility] [address] [place] [address], [address] [place] [phone] Hemal Rodriguez MD, PhD [address] [place] [phone] [email or web address] Scheduled Procedures Name Priority Associated Diagnoses Date/Ti me CAPSULOTOMY BREAST Breast asymmetry between mcgrath breast and reconstructed breast 08/14/2025 12:02 PM EST EXCHANGE IMPLANT BREAST Breast asymmetry between mcgrath breast and reconstructed breast 08/14/2025 12:02 PM EST Health Maintenance Due Date Last Done Comments HEPATITIS C SCREENING 1991 HIV ONE-TIME SCREENING (18-65 YEARS) 1991 ZOSTER VACCINES (1 of 2) 1992 COLOGUARD 2018 FIT TEST 2018 FOBT 2018 SIGMOIDOSCOPY 2018 VIRTUAL COLONOSCOPY 2018 RSV VACCINE (1 - Risk 50-74 years 1-dose series) 2023 COVID-19 VACCINE ( season) 2025 05/26/2024, 06/25/2023, 07/17/2022, Additional history exists TSH LEVEL 01/02/2026 01/02/2025, 06/2 02/2024, 07/12/2023, Additional history exists DEPRESSION SCREENING 05/22/2026 05/22/2025 MAMMOGRAM 01/04/2027 01/04/2025, 050 08/2023, 09/11/2019, Additional history exists PAP SMEAR 01/15/2028 01/14/2023, 12/27, 01/13/2018 COLONOSCOPY 01/31/2028 01/30/2021, 04/22/2017 COLORECTAL CANCER SCREENING 01/31/2028 LIPID PANEL 07/12/2028 07/12/2023, 10/0 10/2018, 12/02/2017 Adult Td,Tdap Booster 03/13/2029 03/13/2019 HEPATITIS A VACCINES Aged Out 03/13/2019 No long er eligible based on patient's age to complete this topic PNEUMOCOCCAL VACCINES (50+ years) Completed 08/30/2023, 06/28/2019 INFLUENZA VACCINE Completed 05/22/2025, , 06/25/2023, Additional history exists SMOKING STATUS SCREENING (Once After 26 Yrs) Completed 05/22/2025 HIB VACCINES Aged Out No longer eligi ble based on patient's age to complete this topic MENINGOCOCCAL VACCINES (ACWY) Aged Out No longer eligible based on patient's age to complete this topic MENINGOCOCCAL VACCINES (B) Aged Out N o longer eligible based on patient's age to complete this topic Medical Devices Implanted Type Area District Court Judge Device Identifier Shelf Expiration Date Model / Serial / Lot Deicer Inspector Pneumatic Tissue 500cc Saline Textured Round Med Biocell Silicone Shell - [id number] Implanted:Qty: 1 on 05/22/2018 by Malik Perez MD at [facility] STANDARD Right: Breast ALLERGAN 10/15/2020 [id number] / [id number] / Bartender Manager Anastomosis 2.5mm Vesselxorthopedic Fast Safe Microvascular Polyethylene S/S Bx/6ea - [id number] Implanted:Qty: 1 on 08/06/2019 by Malik Perez MD at [facility] STANDARD Right: Chest SYNOVIS B-Obvious ALLIAN 04/25/2024 [id number] / / [id number] Marker Breast Tissue [id number] Ultraclip Ii Wing Shaped Bx/5ea - [id number] Implanted:Qty: 1 on 03/16/2018 by Artie Russ MD at [facility] Right: Breast CR [employer]ARD [employer] 08/16/2020 [id number] / / Alloderm Select Duo Rtm Contour Med Perf Medium - [id number] Implanted:Qty: 1 on 05/22/2018 by Malik Perez MD at [facility] Right: Breast LIFECELL MANJIT 03/28/2020 [id number] / / [id number] Alloderm Select Duo Rtm Contour Med Perf Medium - [id number] Implanted:Qty: 1 on 05/22/2018 by Malik Perez MD at [facility] Right: Breast LIFECELL MANJIT 03/28/2020 [id number] / / [id number] Breast Implant 140cc Natrelle Inspira Responsive Silicone Moderate Profile Round Smooth - [id number] Implanted:Qty: 1 on 02/09/2022 by Malik Perez MD at [facility] Right: Breast ALLERGAN 05/28/2026 [id number] / [id number] / N/A Procedures Procedure Name Priority Date/Time Associated Diagnosis Comments TSH Routine 01/02/2025 4:15 PM EDT Malignant neoplasm of right female breast, unspecified estrogen receptor status, unspecified site of breast Hypothyroidism, unspecified type BI MRI BREAST WITH AND WITHOUT CONTRAST (BILATERAL) Routine 12/28/2023 9:43 AM EDT Breast skin changes LIPID PANEL Routine 07/12/2023 12:19 PM EST Screening, lipid PAP TEST Routine 01/14/2023 12:00 AM EDT ENDOSCOPY, COLON 01/30/2021 9:38 AM EDT from Last 3 Months or Most Recently Relevant to Health Maintenance Results * TSH (01/02/2025 4:15 PM EDT) TSH 2.00 0.27 - 4.20 uIU/mL [facility] LIC# [id number] Blood 01/02/2025 4:15 PM EDT 01/02/2025 4:18 PM EDT us Maryse Aparicio PA-C LAB BLOOD ORDERABLES Fin al Result [facility] LIC# [id number] [address] [place] [address] * BI MRI BREAST WITH AND WITHOUT CONTRAST (BILATERAL) (12/28/2023 9:43 AM EDT) Anatomical Region Laterality Modality Breast Left, Breast Right, Breast Bilateral Bila teral Magnetic Resonance Other 12/28/2023 9:58 AM EDT Impressions 12/28/2023 3:15 PM EDT 1. Prior right mastectomy with the SHRUTHI and silicone implant reconstruction. No MRI evidence of malignancy in the right reconstructed breast or the left breast. 2. No imaging findings to account for the clinical symptoms of left breast pain or right nipple itchiness. Management of breast pain and nipple itchiness should be based on the level of clinical concern. Negative imaging findings should not preclude biopsy of any clinically suspicious finding. If the patient is experiencing focal persistent left breast pain, further evaluation with a left diagnostic mammogram and targeted ultrasound is recommended. Correlation with physical exam is recommended for the right nipple itchiness. BI-RADS 2 BENIGN Please note that mammography offers complementary information to MRI and certain findings may be visible primarily on mammography. The patient should keep all scheduled mammography appointments and continue annual screening mammography. ATTESTATION: Domenico Ricks, as teaching physician have reviewed the images, if any, for this patient's exam, and if necessary, have edited the report originally created by Jolynn Ely. Narrative 12/28/2023 3:15 PM EDT BI MRI BREAST WITH AND WITHOUT CONTRAST (BILATERAL) Additional patient information: 48-year-old female with history of right breast cancer status post mastectomy in 2019 presenting for further evaluation of skin changes. Per [facility] chart review, the skin changes were noted in June 2023, although no further description or location are given. In August 2023 this was instead described as itching on her right chest wall, which had reportedly resolved at that time. On the intake form today, the patient reports right itchiness and left breast pain both in the nipple area. TECHNIQUE: MR imaging of the breasts was performed using T1, T2 and fat- saturated techniques. Dynamic multiphase imaging was also performed after administration of intravenous gadolinium contrast agent. Computer generated 3D reconstruction and enhancement kinetic analysis was utilized by the radiologist in the interpretation of this examination. COMPARISON: Comparison is made with relevant prior imaging. Breast composition: Scattered fibroglandular tissue. Background parenchymal enhancement: Mild. FINDINGS: Right Status post mastectomy with SHRUTHI and subpectoral silicone implant reconstruction. There are no suspicious masses or areas of abnormal non-mass enhancement in the reconstructed right breast. There is no axillary or internal mammary lymphadenopathy on the right. Left Postsurgical changes from prior breast reduction. There are no suspicious masses or areas of abnormal non-mass enhancement in the left breast. There is no axillary or internal mammary lymphadenopathy on the left. Other Numerous T2 hyperintense nonenhancing hepatic masses, similar to prior exams. Procedure Note Vinod Valle MD - 12/28/2023 BI MRI BREAST WITH AND WITHOUT CONTRAST (BILATERAL) Additional patient information: 48-year-old female with history of rightbreast cancer status post mastectomy in 2019 presenting for furtherevaluation of skin changes. Per [facility] chart review, the skin changes werenoted in June 2023, although no further description or location aregiven. In August 2023 this was instead described as itching on her rightchest wall, which had reportedly resolved at that time. On the intake formtoday, the patient reports right itchiness and left breast pain both inthe nipple area. TECHNIQUE: MR imaging of the breasts was performed using T1, T2 andfat-saturated techniques. Dynamic multiphase imaging was also performedafter administration of intravenous gadolinium contrast agent. Computergenerated 3D reconstruction and enhancement kinetic analysis was utilizedby the radiologist in the interpretation of this examination. COMPARISON: Comparison is made with relevant prior imaging. Breast composition: Scattered fibroglandular tissue. Background parenchymal enhancement: Mild. FINDINGS: Right Status post mastectomy with SHRUTHI and subpectoral silicone implantreconstruction. There are no suspicious masses or areas of abnormalnon-mass enhancement in the reconstructed right breast. There is no axillary or internal mammary lymphadenopathy on the right. Left Postsurgical changes from prior breast reduction. There are no suspiciousmasses or areas of abnormal non-mass enhancement in the left breast. There is no axillary or internal mammary lymphadenopathy on the left. Other Numerous T2 hyperintense nonenhancing hepatic masses, similar to priorexams. IMPRESSION: 1. Prior right mastectomy with the SHRUTHI and silicone implantreconstruction. No MRI evidence of malignancy in the right reconstructedbreast or the left breast. 2. No imaging findings to account for the clinical symptoms of leftbreast pain or right nipple itchiness. Management of breast pain andnipple itchiness should be based on the level of clinical concern.Negative imaging findings should not preclude biopsy of any clinicallysuspicious finding. If the patient is experiencing focal persistent leftbreast pain, further evaluation with a left diagnostic mammogram andtargeted ultrasound is recommended. Correlation with physical exam isrecommended for the right nipple itchiness. BI-RADS 2 BENIGN Please note that mammography offers complementary information to MRI andcertain findings may be visible primarily on mammography. The patientshould keep all scheduled mammography appointments and continue annualscreening mammography. ATTESTATION: Domenico Ricks, as teaching physician have reviewed theimages, if any, for this patient's exam, and if necessary, have edited thereport originally created by Jolynn Ely. us Sarina Barrett MD IMG MR BREAST Final Resu lt * (ABNORMAL) Lipid panel (07/12/2023 12:19 PM EST) HDL 67 mg/dL [facility] Comment: Interpretation <40 mg/dL: Low HDL cholesterol (major risk factor for CHD) Greater than or equal to 60 mg/dL: High HDL cholesterol ( negative risk factor for CHD) HDL - cholesterol is affected by a number of factors, e.g. smoking, excerise, hormones, sex and age. CHOLESTEROL 192 0 - 240 mg/dL [facility] TRIGLYCERIDES 143 30 - 160 mg/dL [facility] LDL 96 50 - 129 mg/dL [facility] Comment: LDL levels in terms of risk for coronary heart disease: <100 mg/dL: Optimal 100-129 mg/dL: Near or above optimal 130-159 mg/dL: Borderline high 160-189 mg/dL: High >190 mg/dL: Very High CARDIAC RISK RATIO 2.9(L) 3.3 - 4.4 [facility] Blood 07/12/2023 12:1 9 PM EST 07/12/2023 12:27 PM EST us Megha Flowers FELLER MACHINE OPERATOR LAB BLOOD ORDERABLES Final Re sult [facility] [address] [place] [address] * Pap Test (01/14/2023 12:00 AM EDT) 01/14/2023 01/17/2023 9:5 9 AM EDT Narrative SEE NARRATIVE - 01/20/2023 4:48 PM EDT [address] [address] Manager Farm: Sophie Rayo MD SUPERVISOR DOG LICENSE OFFICER Cytology Report FINAL DIAGNOSIS A. PAP SMEAR (SUREPATH) CE: SPECIMEN ADEQUACY: Satisfactory for evaluation; transformation zone present. INTERPRETATION: NEGATIVE FOR INTRAEPITHELIAL LESION OR MALIGNANCY. Reactive changes. Electronically Signed Out By: MD Doris Bojorquez CT(ASCP) THOMAS Mckinnon(ASCP) By his/her signature above, the pathologist listed as making the Final Diagnosis certifies that he/she has personally reviewed this case and confirmed or corrected the diagnosis. The Pap test is a screening test primarily for squamous cancers and precursors and has associated false-negative and false-positive results. New technologies such as liquid-based preparations may decrease but will not eliminate all false-negative results. Regular sampling and follow-up of unexplained clinical signs and symptoms are recommended to minimize false negative results. PROCEDURES/ADDENDA HPV Testing (Requested) Ordered Date: 01/17/2023 A. PAP SMEAR (SUREPATH) CE: Human Papilloma Virus Test NEGATIVE for high-risk Human Papilloma Virus types 16, 18, 45 and the Other high risk probe set (Includes 31, 33, 35, 39, 51, 52, 56, 58, 59, 66, 68) Note: Testing performed by [employer] [facility] HR-HPV analysis. Clinical correlation is advised. This HPV test was performed at [facility], [address] [place] [address]. This test has been FDA approved for [facility] cervical cytology specimens. The accuracy and precision of this test for all other specimen sources has been verified in the Cytopathology Laboratory of the [facility] and has not been cleared or approved by the U.S. Food and Drug Administration. Clinical correlation is advised. CLINICAL HISTORY Date of Last Menstrual Period: Not Provided Menstrual History: Post Menopausal Other Clinical Conditions: Screening Pap SPECIMEN SOURCE A: PAP SMEAR (SUREPATH) CE Patient Name: MELVA SANTIAGO : 1975 (Age: 47) Sex: F Institution: [facility] Location: [facility] Date of Collection: 01/14/2023 Date of Reported: 01/20/2023 16:48 Results to: Tierra Devries MD us Tierra Devries MD CYTOLOGY ORDERABLES Final Res ult SEE NARRATIVE * ENDOSCOPY, COLON (01/30/2021 9:38 AM EDT) Narrative Transcriptions Shreyas Rios MD - 01/30/2021 9:38 AM EDT Patient Name: Melva Romoman Attending MD:: SHREYAS RIOS MD Procedure Date: 01/30/2021 9:38 AM Date of : 1975 Age: 45 Admit Type: Outpatient Gender: Female Room: [place] [address] Referring MD: SAGAR VIZCARRA MD Exam Type: Colonoscopy Indications: Colon cancer screening in patient at increased risk: Family history of colorectal cancer in multiple 2nd degree relatives, Last colonoscopy: March 2017, Incidental constipation noted Medications: Monitored Anesthesia Care Procedure: Informed consent was obtained from the patient after discussion of the indications, limitations, alternatives, benefits, and risks of the procedure. Risks specifically discussed include but are not limited to medication reactions, missed lesions, bleeding, perforation, or the need for emergentsurgery. Throughout the procedure, the patient's bloodpressure, pulse, end-tidal CO2, and oxygen saturations were monitored continuously. The Olympus pediatric variable colonoscopePCF-H190DL #4 was introduced through the anus and advanced tothe cecum, identified by the appendiceal orifice,ileocecal valve and palpation. The colonoscopy was performedwith moderate difficulty due to a redundant colon and significant looping. Successful completion of the procedure was aided by applying abdominal pressure.The patient tolerated the procedure. The quality of the bowel preparation was adequate to identify polyps. Complications: No immediate complications. Estimated blood loss:None. Findings: The perianal and digital rectal examinations were normal. Pertinent negatives include normal sphincter tone. The colon (entire examined portion) wassignificantly redundant. A diffuse area of moderately melanotic mucosa wasfound in the entire colon. The exam was otherwise without abnormality on direct and retroflexion views. Impression: - Redundant colon. - Melanotic mucosa in the entire examined colon. - The examination was otherwise normal on direct and retroflexion views. - No specimens collected. Recommendation: - Repeat colonoscopy in 7 years for screeningpurposes. - Continue present medications. SHREYAS RIOS MD 01/30/2021 10:01:41 AM This report has been signed electronically. Number of Addenda: 0 Note Initiated On: 01/30/2021 9:38 AM Procedure Date: 01/30/2021 9:38:[address] [place] [address] Sagar Vizcarra MD GI PROCEDURE ORDERABLES Final Result from Last 3 Months or Most Recently Relevant to Health Maintenance Insurance [employer] HMO POS EPO 54 COUNTRY [facility] [place] Advance Directives For more information, please contact: [phone] (9AM - 5PM Georgina/[facility], Tuesday-Tuesday) Documents on File Type Date Recorded Patient Ammonia Box Operator Expl anation Healthcare Proxy 11/14/2017 10:26 AM * Full Code (Confirmed) (Latest Code Status on File) Date Activated Date Inactivated Comments 08/06/2019 4:50 PM 08/09/2019 1:35 PM Question Answer Comments Code Status Confirmed With: Patient * Full Code (Presumed) Date Activated Date Inactivated Comments 05/22/2018 12:00 PM 05/23/2018 4:55 PM * Full Code (Presumed) Date Activated Date Inactivated Comments 05/22/2018 6:36 AM 05/22/2018 12:00 PM * Full Code (Confirmed) Date Activated Date Inactivated Comments 03/22/2018 9:36 AM 03/22/2018 5:08 PM Question Answer Comments Code Status Confirmed With: Patient Healthcare Agents on File Name Relationship Healthcare Agent Relationshi p Communication Ryan Anabell Spouse .Primary Health Care Agent (Proxy form on file) Care Teams Acid Polymerization Operator Relationship Specialty Start Date End Date Juliana, Richard, MD [address] [place] [address] [email or web address] PCP - Hematology/Oncology Hematology and Oncology 01/03/20 Megha Flowers FNP [address] [place] [address], [address] [place] [address] [email or web address] PCP - General Family Medicine 03/17/23 Self-Referred, Patient Referring Physician 03/29/18 Marisa De Anda MD [address] [place] [address] [email or web address] Surgical Oncology 03/29/18 Sania Zarate PA-C [address] [place] [address] [email or web address]@[email or web address] Surgical Oncology 03/29/18 Hemal Rodriguez MD, PhD [address] [place] [address] [email or web address] Hematology and Oncology 03/29/18 Saranya Treadwell NP [address] [place] [address] Internal Medicine 03/29/18 Silvana Oakes MD [address] [place] [address] [email or web address] Radiation Oncology 06/01/18 Sophie Martins, YOSELIN [address] [place] [address] [email or web address] .[facility] Primary Infusion Nurse 07/17/18 Linn Menon, [facility] 75 [facility], ASB1- L2 [place] [address] [email or web address] Therapeutic Riding Instructor Oncology 07/28/18 Malik Perez MD [address] [place], [place] [phone] [email or web address] Plastic and Reconstructive Surgery 10/25/19 Royal Daniels MD [address] [place], [place] [phone] Gynecology 10/25/19 Additional Source Comments The information contained in this document represents components of the legal health record. It is not the complete legal health record.[facility]
--- OUTSIDE RECORDS SUMMARY | 2025-06-20 19:46 | XMS_ITS | Encounter Summary ---
Author Organization [facility] Address [address] [facility] [address] [place] [address] Phone Care Team Providers Care Nanny Caregiver Name Role Phone Guzman Arteaga MD Primary Care Provider Self-Referred, Patient Unavailable Unavailab Marisa Mcnally MD Unavailable [phone] Sania Zarate PA-C Unavailable [phone] Hemal Rodriguez MD, PhD Unavailable [phone] Saranya Treadwell NP Unavailable Unavai Silvana Florez MD Unavailable Sophie Martins RN Unavailable [phone] Linn Menon [facility] Unavailable Malik Perez MD Unavailable [phone] Royal Daniels MD Unavailable [phone] Richard Andrews MD Unavailable Megha Flowers Primary Care Provider [phone] Encounter Details Date Type Department Care Team (Late st Contact Info) Description 04/05/2022 Procedure Pass [facility] [place], Mammography, Prerna Lank Imaging Department [address] [place] [address] Social History Tobacco Use Types Packs/Day Years [...] high school, GED, job training, learning the Czech language, technical skills, or developing parenting skills)? [...] have you moved in the past 12 tue? One time 12/02/2021 Paying for Meds Answer [...] st Contact Info) Description 01/02/2025 Procedure Pass [facility] [place], Mammography, Prerna Lank Imaging Department [address] [place] [address] 07/01/2025 8:45 AM EST Office Visit [facility] Plastic Surgery [address] [place] [address] Kunal Navarro MD [address] [place] [address], [address] [place] [address] 07/18/2025 3:00 PM EST Office Visit [facility] [address] [place] [address] Megha Flowers, [facility] [address] [facility], [address] [place] [address] 08/14/2025 Procedure Pass [place] Admitting Dept - Virtual Department [address] [place] [address] 08/14/2025 12:02 PM EST Hospital Encounter [place] Admitting Dept - Virtual Department [address] [place] [address] Kunal Navarro MD [address] [place] [address], [address] [place] [address] 08/14/2025 12:02 PM EST - 08/14/2025 2:27 PM EST Surgery OR Admitting Dept - Virtual Department [address] [place] [address] Kunal Navarro MD [address] [place] [address], [address] [place] [address] CAPSULOTOMY BREAST 01/08/2026 2:00 PM EDT Appointment [facility] [place], Mammography, Prerna Lank Imaging Department [address] [place] [address] Maryse Aparicio PA-C [address] [place] [address] [email or web address]@[email or web address] Hemal Rodriguez MD, PhD [address] [place] [address] [email or web address] 01/08/2026 3:00 PM EDT Office [facility], Ronel Chen [place] [facility], [facility] [place] [address] [facility], 9th [place] [address] Hemal Rodriguez MD, PhD [address] [place] [address] [email or web address] Scheduled Procedures Name Priority Associated Diagnoses Date/Ti me CAPSULOTOMY BREAST Breast asymmetry between [place] breast and reconstructed breast 08/14/2025 12:02 PM EST EXCHANGE IMPLANT BREAST Breast asymmetry between [place] breast and reconstructed breast 08/14/2025 12:02 PM [...] documented as of this encounter Care Teams Nanny Caregiver Relationship Specialty Start Date End Date Guzman Arteaga MD [address] [place] [address] 7 [place] [address] PCP - General Family Medicine 09/05/17 03/16/23 Richard Andrews MD [address] [place] [address] [email or web address] PCP - Hematology/Oncology Hematology and Oncology 01/03/20 Megha Flowers FNP [address] [place] [address] 7 [place] [address] [email or web address] PCP - General Family Medicine 03/17/23 Self-Referred, Patient Referring Physician 03/29/18 Marisa De Anda MD [address] [place] [address] [email or web address] Surgical Oncology 03/29/18 Sania Zarate, PALuxC [address] [place], [place] [phone] [place], [place] [email or web address]@[email or web address] Surgical Oncology 03/29/18 Hemal Rodriguez MD, PhD [address] [place] [address] [email or web address] Hematology and Oncology 03/29/18 Saranya Treadwell NP [address] [place] [address] Internal Medicine 03/29/18 Silvana Oakes MD [address] [place] [address] [email or web address] Radiation Oncology 06/01/18 Sophie Martins, YOSELIN [address] [place] [address] [email or web address] Primary Infusion Nurse 07/17/18 Linn Menon, [address] [address] [email or web address]@[email or web address] Manager Market Research Oncology 07/28/18 Malik Perez MD [address] [place] [address] [email or web address] Plastic and Reconstructive Surgery 10/25/19 Royal Daniels MD [address] [place] [address] Gynecology 10/25/19 documented as of this encounter Additional Source Comments The information contained in this document represents components of the legal health record. It is not the complete legal health record.[facility]
--- OUTSIDE RECORDS SUMMARY | 2025-06-20 19:46 | XMS_ITS | Encounter Summary ---
Author Organization [facility] Address [address] [facility] [address] [place] [address] Phone Care Team Providers Care Food Production Manager Name Role Phone Guzman Arteaga MD Primary Care Provider Self-Referred, Patient Unavailable Unavailab Marisa Mcnally MD Unavailable [phone] Sania Zarate PA-C Unavailable [phone] Hemal Rodriguez MD, PhD Unavailable + [phone] Saranya Treadwell NP Unavailable Unavai Silvana Florez MD Unavailable Sophie Martins RN Unavailable [phone] Linn Menon [facility] Unavailable Malik Perez MD Unavailable [phone] Royal Daniels MD Unavailable [phone] Richard Andrews MD Unavailable Megha Flowers Primary Care Provider [phone] Encounter Details Date Type Department Care Team (Late st Contact Info) Description 09/10/2020 Procedure Pass [facility] [place], Mammography, Prerna Lank Imaging Department [address] [place] [address] Social History Tobacco Use Types Packs/Day Years [...] Info) Description 01/02/2025 Procedure Pass [facility] [place], Mammography, Prerna Lank Imaging Department [address] [place] [address] 07/01/2025 8:45 AM EST Office Visit [facility] Plastic Surgery 40 [place] [address] Kunal Navarro MD [address] [place] [address] [email or web address] 07/18/2025 3:00 PM EST Office Visit [facility] 234 [place] [address] Megha Flowers, COMMUNITY HEALTH ADVISOR [address] [address] 08/14/2025 Procedure Pass OR Admitting Dept - Virtual Department [address] [place] [address] 08/14/2025 12:02 PM EST Hospital Encounter OR Admitting Dept - Virtual Department [address] [place] [address] Kunal Navarro MD [address] [place] [address] 08/14/2025 12:02 PM EST - 08/14/2025 2:27 PM EST Surgery OR Admitting Dept - Virtual Department [address] [place] [address] Kunal Navarro MD [address] [place] [address], [address] [phone] [email or web address] CAPSULOTOMY BREAST 01/08/2026 2:00 PM EDT Appointment [facility], Mammography, Prerna Lank Imaging Department [address] [place] [address] Maryse Aparicio PA-C [address] [place] [address] [email or web address] Hemal Rodriguez MD, PhD [address] [place] [address] [email or web address] 01/08/2026 3:00 PM EDT Office Visit [facility], Ronel Chen [place] [facility], [address], 9th [place] [address] Hemal Rodriguez MD, PhD [address] [place] [address] [email or web address] Scheduled Procedures Name Priority Associated Diagnoses Date/Ti me CAPSULOTOMY BREAST Breast asymmetry between [place] breast and reconstructed breast 08/14/2025 12:02 PM EST EXCHANGE IMPLANT BREAST Breast asymmetry between [place] breast and reconstructed breast 08/14/2025 12:02 PM [...] documented as of this encounter Care Teams Food Production Manager Relationship Specialty Start Date End Date Guzman Arteaga MD [address] [place] [address] 7 [place] [address] [email or web address] PCP - General Family Medicine 09/05/17 03/16/23 Richard Andrews MD [address] [place] [address] [email or web address] PCP - Hematology/Oncology Hematology and Oncology 01/03/20 Megha Flowers FNP [address] [place] [address] 7 [place] [address] [email or web address] PCP - General Family Medicine 03/17/23 Self-Referred, Patient Referring Physician 03/29/18 Marisa De Anda MD [address] [place] [address] [email or web address] Surgical Oncology 03/29/18 Sania Zarate PA-C [address] [place] [id number] [place] [address] [email or web address]@[email or web address] Surgical Oncology 03/29/18 Hemal Rodriguez MD, PhD [address] [place] [address] [email or web address] Hematology and Oncology 03/29/18 Saranya Treadwell NP [address] [place] [address] Internal Medicine 03/29/18 Silvana Oakes MD [address] [place] [address] [email or web address] Radiation Oncology 06/01/18 Sophie Martins, YOSELIN [address] [place] [address] [email or web address] Primary Infusion Nurse 07/17/18 Linn Menon, [address] [address] [email or web address] Oil Field Roustabout Oncology 07/28/18 Malik Perez MD [address] [place] [address] [email or web address] Plastic and Reconstructive Surgery 10/25/19 Royal Daniels MD [address] [place] [address] Gynecology 10/25/19 documented as of this encounter Additional Source Comments The information contained in this document represents components of the legal health record. It is not the complete legal health record.[facility]
--- OUTSIDE RECORDS SUMMARY | 2025-06-20 19:46 | XMS_ITS | Encounter Summary ---
Author Organization [facility] Address [address] [facility] [address] [place] [address] Phone Care Team Providers Care Hogshead Mat Inspector Name Role Phone Self-Referred, Patient Unavailable Unavailab Marisa Mcnally MD Unavailable [phone] Sania Zarate PALuxC Unavailable [phone] Hemal Rodriguez MD, PhD Unavailable [phone] Saranya Treadwell DRAFTING INSTRUCTOR Unavailable Unavai Silvana Florez MD Unavailable Sophie Martins RN Unavailable [phone] Linn Menon [facility] Unavailable Malik Perez MD Unavailable [phone] Royal Daniels MD Unavailable [phone] Richard Andrews MD Unavailable Megha Flowers [facility] Primary Care Provider Encounter Details Date Type Department Care Team (Late st Contact Info) Description 07/07/2023 Procedure Pass Prerna Lank Imaging Department, [facility] [place], MRI [address] [address] Social History Tobacco Use Types Packs/Day Years [...] high school, GED, job training, learning the [place] language, technical skills, or developing parenting skills)? [...] 12/02/2021 Digital Access Answer Date Recorded No 01/21/2023 No 01/21/2023 Reliable internet access at home? Not on file 01/21/2023 Device with a working camera? Not on file Comments No Sex and Gender Information Value [...] Info) Description 01/02/2025 Procedure Pass [facility] [place], Mammography, Prerna Lank Imaging Department [address] [place] [address] 07/01/2025 8:45 AM EST Office Visit [facility] Plastic Surgery [address] [place] [address] Kunal Navarro MD [address] [place] [address], [address] [place] [address] 07/18/2025 3:00 PM EST Office Visit [facility] 234 [place] [address] Megha Flowers FNP 234 [facility] 7 [place] [address] 08/14/2025 Procedure Pass [place] Admitting Dept - Virtual Department [address] [place] [address] 08/14/2025 12:02 PM EST Hospital Encounter OR Admitting Dept - Virtual Department [address] [place] [address] Kunal Navarro MD [address] [place] [address], [address] [place] [address] 08/14/2025 12:02 PM EST - 08/14/2025 2:27 PM EST Surgery OR Admitting Dept - Virtual Department [address] [place] [address] Kunal Navarro MD [address] [place] [address], [address] [place] [address] CAPSULOTOMY BREAST 01/08/2026 2:00 PM EDT Appointment [facility] [place], Mammography, Prerna Lank Imaging Department [address] [place] [address] Maryse Aparicio PA-C [address] [place] [address] [email or web address] Hemal Rodriguez MD, PhD [address] [place] [address] [email or web address] 01/08/2026 3:00 PM EDT Office Visit [facility], Ronel Chen [place] [facility], [facility] [place] [address] [place] [address], 9th [place] [address] Hemal Rodriguez MD, PhD [address] [place] [address] [email or web address] Scheduled Procedures Name Priority Associated Diagnoses Date/Ti me CAPSULOTOMY BREAST Breast asymmetry between [place] breast and reconstructed breast 08/14/2025 12:02 PM EST EXCHANGE IMPLANT BREAST Breast asymmetry between [place] breast and reconstructed breast 08/14/2025 12:02 PM EST documented as of this encounter Visit Diagnoses Not on filedocumented in this encounter Additional Health Concerns Infection Onset Date Last Indicated Resolved Time COVID-19 04/24/2024 04/24/2024 05/15/2024 1:21 AM EDT Assessment Noted Time PHQ-2 Depression Total Score: 0 08/10/20 12:11 PM EST documented as of this encounter Care Teams Hogshead Mat Inspector Relationship Specialty Start Date End Date Richard Andrews MD [address] [place] [address] [email or web address] PCP - Hematology/Oncology Hematology and Oncology 01/03/20 Megha Flowers FNP [address] [place] [address], [address] [place] [address] [email or web address] PCP - General Family Medicine 03/17/23 Self-Referred, Patient Referring Physician 03/29/18 Marisa De Anda MD [address] [place] [address] [email or web address] Surgical Oncology 03/29/18 Sania Zarate PA-C [address] [place] [id number] [place], [place] [email or web address]@[email or web address] Surgical Oncology 03/29/18 Hemal Rodriguez MD, PhD [address] [place] [address] [email or web address] Hematology and Oncology 03/29/18 Saranya Treadwell NP [address] [place] [address] Internal Medicine 03/29/18 Silvana Oakes MD [address] [place] [address] [email or web address] Radiation Oncology 06/01/18 Sophie Martins, YOSELIN [address] [place] [address] [email or web address] Primary Infusion Nurse 07/17/18 Linn Menon, [address] [address] [email or web address] Registered Associate Oncology 07/28/18 Malik Perez MD [address] [place] [address] [email or web address] Plastic and Reconstructive Surgery 10/25/19 Royal Daniels MD [address] [place] [address] Gynecology 10/25/19 documented as of this encounter Additional Source Comments The information contained in this document represents components of the legal health record. It is not the complete legal health record.[facility]
--- OUTSIDE RECORDS SUMMARY | 2025-06-20 19:46 | XMS_ITS | Encounter Summary ---
Author Organization [facility] Address [address] [facility] [address] [place] [address] Phone Care Team Providers Care Knife Changer Name Role Phone Guzman Arteaga MD Primary Care Provider [phone] Self-Referred, Patient Unavailable Unavailab Marisa Mcnally MD Unavailable + [phone] Sania Zarate PA-C Unavailable [phone] Hemal Rodriguez MD, PhD Unavailable + [phone] Saranya Treadwell NP Unavailable Unavai Silvana Florez MD Unavailable Sophie Martins RN Unavailable [phone] Linn Menon [facility] Unavailable Malik Perez MD Unavailable [phone] Royal Daniels MD Unavailable [phone] Richard Andrews MD Unavailable Megha Flowers Primary Care Provider [phone] Encounter Details Date Type Department Care Team (Late st Contact Info) Description 03/08/2019 Procedure Pass [facility], [address] [address] Social History Tobacco Use Types Packs/Day Years [...] st Contact Info) Description 01/02/2025 Procedure Pass [facility], Mammography, Prerna Lank Imaging Department [address] [place] [address] 07/01/2025 8:45 AM EST Office Visit [facility] [address] [place] [address] Kunal Navarro MD [address] [place] [address] 07/18/2025 3:00 PM EST Office Visit [facility] [address] [place] [address] Megha Flowers, [employer] [address] [address] 08/14/2025 Procedure Pass OR Admitting Dept - Virtual Department 30 [place] [address] 08/14/2025 12:02 PM EST Hospital Encounter OR Admitting Dept - Virtual Department 30 [place] [address] Kunal Navarro MD [address] [place] [address], [address] [address] 08/14/2025 12:02 PM EST - 08/14/2025 2:27 PM EST Surgery OR Admitting Dept - Virtual Department [address] [place] [address] Kunal Navarro MD [address] [place] [address], [address] [place] [address] [email or web address] CAPSULOTOMY BREAST 01/08/2026 2:00 PM EDT Appointment [facility], Mammography, Pre[place] Lank Imaging Department [address] [place] [address] Maryse Aparicio PA-C [address] [place] [address] [email or web address] Hemal Rodriguez MD, PhD [address] [place] [address] [email or web address] 01/08/2026 3:00 PM EDT Office Visit [facility], [facility], [address], 9th [place] [address] Hemal Rodriguez MD, PhD [address] [place] [address] [email or web address] Scheduled Procedures Name Priority Associated Diagnoses Date/Ti me CAPSULOTOMY BREAST Breast asymmetry between [place] breast and reconstructed breast 08/14/2025 12:02 PM EST EXCHANGE IMPLANT BREAST Breast asymmetry between [place] breast and reconstructed breast 08/14/2025 12:02 PM [...] documented as of this encounter Care Teams Knife Changer Relationship Specialty Start Date End Date Guzman Arteaga MD [address] [place] [address] 7 [place] [address] [email or web address] PCP - General Family Medicine 09/05/17 03/16/23 Richard Andrews MD [address] [place] [address] [email or web address] PCP - Hematology/Oncology Hematology and Oncology 01/03/20 Megha Flowers FNP [address] [place] [address] 7 [place] [address] [email or web address] PCP - General Family Medicine 03/17/23 Self-Referred, Patient Referring Physician 03/29/18 Marisa De Anda MD [address] [place] [address] [email or web address] Surgical Oncology 03/29/18 Sania Zarate PA-C [address] [place] [address] [email or web address] Surgical Oncology 03/29/18 Hemal Rodriguez MD, PhD [address] [place] [address] [email or web address] Hematology and Oncology 03/29/18 Saranya Treadwell NP [address] [place] [address] Internal Medicine 03/29/18 Silvana Oakes MD [address] [place] [address] [email or web address] Radiation Oncology 06/01/18 Sophie Martins, YOSELIN [address] [place] [address] [email or web address] Primary Infusion Nurse 07/17/18 Linn Menon, [address] [address] [email or web address] General Car Supervisor Oncology 07/28/18 Malik Perez MD [address] [place] [address] [email or web address] Plastic and Reconstructive Surgery 10/25/19 Royal Daniels MD [address] [place] [address] Gynecology 10/25/19 documented as of this encounter Additional Source Comments The information contained in this document represents components of the legal health record. It is not the complete legal health record.[facility]
--- OUTSIDE RECORDS SUMMARY | 2025-06-20 19:46 | XMS_ITS | Encounter Summary ---
Author Organization [facility] Address [address] [facility] [address] [place] [address] Phone Care Team Providers Care Brewery Representative Name Role Phone Guzman Arteaga MD Primary Care Provider Self-Referred, Patient Unavailable Unavailab Marisa Mcnally MD Unavailable + [phone] Sania Zarate PA-C Unavailable [phone] Hemal Rodriguez MD, PhD Unavailable + [phone] Saranya Treadwell NP Unavailable Unavai Silvana Florez MD Unavailable Sophie Martins RN Unavailable [phone] [employer] Men[facility] Unavailable Malik Perez MD Unavailable [phone] Royal Daniels MD Unavailable [phone] Richard Andrews MD Unavailable Megha Flowers Primary Care Provider [phone] Encounter Details Date Type Department Care Team (Late st Contact Info) Description 01/30/2021 Procedure Pass [facility] Admitting Dept Virtual Department [address] [place] [address] Social History Tobacco Use Types Packs/Day Years [...] work, study, or receive health care? No 12/26/2020 Education Answer Date Recorded Are you interested in help w ith more adult education (for example, completing high school, GED, job training, learning the Scottish language, technical skills, or developing parenting skills)? No 12/26/2020 Food Answer Date Recorded Within the past 6 months we worried whether our food would run out before we got money to buy more. Never True 12/26/2020 Within the past 6 months the food we bought just didn't last and we didn't have enough money to get more. Never True Paying for Meds Answer Date Recorded Do you have trouble paying for medicines? No 12/26/2020 Paying Utility Bills Answer Date Record ed Do you have trouble paying your heating or elect ricity bill? No 12/26/2020 Transportation Answer Date Recorded Has the lack of transportati on kept you from medical appointments or from getting medications? No 12/26/2020 Comments No Sex and Gender Information Value [...] Info) Description 01/02/2025 Procedure Pass [facility], Mammography, Prerna Lank Imaging Department [address] [place] [address] 07/01/2025 8:45 AM EST Office Visit [facility] [address] [place] [address] Kunal Navarro MD [address] [place] [address], [address] [id number] 07/18/2025 3:00 PM EST Office Visit [facility] [address] [place] [address] Megha Flowers FNP [address] [facility], [address] [place] [address] [email or web address] 08/14/2025 Procedure Pass [place] Admitting Dept - Virtual Department [address] [place] [address] 08/14/2025 12:02 PM EST Hospital Encounter OR Admitting Dept - Virtual Department [address] [place] [address] Kunal Navarro MD [address] [place] [address], [address] [place] [address] [email or web address] 08/14/2025 12:02 PM EST - 08/14/2025 2:27 PM EST Surgery OR Admitting Dept - Virtual Department [address] [place] [address] Kunal Navarro MD [address] [place] [address], [address] [place] [address] [email or web address] CAPSULOTOMY BREAST 01/08/2026 2:00 PM EDT Appointment [facility] [place], Mammography, Pre[place] Lank Imaging Department [address] [place] [address] Maryse Aparicio PA-C [address] [place] [address] [email or web address] Hemal Rodriguez MD, PhD [address] [place] [address] [email or web address] 01/08/2026 3:00 PM EDT Office Visit [facility], [facility], [facility] [address] [facility], 9th [place] [address] Hemal Rodriguez MD, PhD 450 [place] [address] [email or web address] Scheduled Procedures Name Priority Associated Diagnoses Date/Ti me CAPSULOTOMY BREAST Breast asymmetry between [place] breast and reconstructed breast 08/14/2025 12:02 PM EST EXCHANGE IMPLANT BREAST Breast asymmetry between [place] breast and reconstructed breast 08/14/2025 12:02 PM [...] documented as of this encounter Care Teams Brewery Representative Relationship Specialty Start Date End Date Guzman Arteaga MD [address] [place] [address] 7 [place] [address] [email or web address] PCP - General Family Medicine 09/05/17 03/16/23 Richard Andrews MD [address] [place] [address] [email or web address] PCP - Hematology/Oncology Hematology and Oncology 01/03/20 Megha Flowers FNP [address] [place] [address] 7 [place] [address] PCP - General Family Medicine 03/17/23 Self-Referred, Patient Referring Physician 03/29/18 Marisa De Anda MD [address] [place] [address] [email or web address] Surgical Oncology 03/29/18 Sania Zarate PA-C [address] [place] [address] [email or web address] Surgical Oncology 03/29/18 Hemal Rodriguez MD, PhD [address] [place] [address] [email or web address] Hematology and Oncology 03/29/18 Saranya Treadwell NP [address] [place] [address] Internal Medicine 03/29/18 Silvana Oakes MD [address] [place] [address] [email or web address] Radiation Oncology 06/01/18 Sophie Martins, YOSELIN [address] [place] [address] [email or web address] Primary Infusion Nurse 07/17/18 Linn Menon, [address] [address] [email or web address] Insurance Claims Supervisor Oncology 07/28/18 Malik Perez MD [address] [place] [address] [email or web address] Plastic and Reconstructive Surgery 10/25/19 Royal Daniels MD [address] [place] [address] Gynecology 10/25/19 documented as of this encounter Additional Source Comments The information contained in this document represents components of the legal health record. It is not the complete legal health record.[facility]
--- OUTSIDE RECORDS SUMMARY | 2025-06-20 19:46 | XMS_ITS | Encounter Summary ---
Author Organization [facility] Address [address] [facility] [address] [place] [address] Phone Care Team Providers Care Broadcaster Name Role Phone Self-Referred, Patient Unavailable Unavailab Marisa Mcnally MD Unavailable [phone] Sania Zarate PALuxC Unavailable [phone] Hemal Rodriguez MD, PhD Unavailable [phone] Saranya Treadwell SOLAR THERMAL TECHNICIAN Unavailable Unabrittanyi Silvana Florez MD Unavailable Sophie Martins RN Unavailable [phone] Linn Menon [facility] Unavailable Malik Perez MD Unavailable [phone] Royal Daniels MD Unavailable [phone] Richard Andrews MD Unavailable Megha Flowers [facility] Primary Care Provider Encounter Details Date Type Department Care Team (Late st Contact Info) Description 12/28/2023 Procedure Pass [facility] [place], Mammography, Prerna Lank Imaging Department [address] [place] [address] Social History Tobacco Use Types Packs/Day Years Used Date Smoking Tobacco: Former Cigarettes 1 30 1 989 - 1993 Smokeless Tobacco: Never [...] high school, GED, job training, learning the Liberian language, technical skills, or developing parenting skills)? [...] computer) with a working camera? Yes 08/30/2023 Comments No Sex and Gender Information Value [...] st Contact Info) Description 01/02/2025 Procedure Pass [facility] [place], Mammography, Pre[place]na Lank Imaging Department [address] [place] [address] 07/01/2025 8:45 AM EST Office Visit [facility] Plastic Surgery 40 [place] [address] Kunal Navarro MD [address] [place] [address] 07/18/2025 3:00 PM EST Office Visit [address] [address] Megha Flowers CREDIT ADMINISTRATION MANAGER [address] [address] 08/14/2025 Procedure Pass OR Admitting Dept - Virtual Department [address] [place] [address] 08/14/2025 12:02 PM EST Hospital Encounter OR Admitting Dept - Virtual Department [address] [place] [address] Kunal Navarro MD [address] [place] [address] 08/14/2025 12:02 PM EST - 08/14/2025 2:27 PM EST Surgery OR Admitting Dept - Virtual Department [address] [place] [address] Kunal Navarro MD [address] [place] [address], [address] [address] CAPSULOTOMY BREAST 01/08/2026 2:00 PM EDT Appointment [facility] [place], Mammography, Prerna Lank Imaging Department [address] [place] [address] Mayrse Aparicio PA-C [address] [place] [address] [email or web address] Hemal Rodriguez MD, PhD [address] [place] [address] [email or web address] 01/08/2026 3:00 PM EDT Office Visit [facility], [facility] [place] [address] [place] [address], 9th [place] [address] Hemal Rodriguez MD, PhD [address] [place] [address] [email or web address] Scheduled Procedures Name [...] documented as of this encounter Care Teams Broadcaster Relationship Specialty Start Date End Date Richard Andrews MD [address] [place] [address] [email or web address] PCP - Hematology/Oncology Hematology and Oncology 01/03/20 Megha Flowers FNP [address] [place] [address], [address] [place] [address] PCP - General Family Medicine 03/17/23 Self-Referred, Patient Referring Physician 03/29/18 Marisa De Anda MD [address] [place] [address] [email or web address] Surgical Oncology 03/29/18 Sania Zarate PA-C [address] [place], [place] [address] [place], [place] [email or web address]@[email or web address] Surgical Oncology 03/29/18 Hemal Rodriguez MD, PhD [address] [place] [address] [email or web address] Hematology and Oncology 03/29/18 Saranya Treadwell, BLANQUITA [address] [place] [address] Internal Medicine 03/29/18 Silvana Oakes MD [address] [place] [address] [email or web address] Radiation Oncology 06/01/18 Sophie Martins, YOSELIN [address] [place] [address] [email or web address] Primary Infusion Nurse 07/17/18 Linn Menon, [address] [email or web address] Patient Financial Services Specialist Oncology 07/28/18 Malik Perez MD [address] [place] [address] [email or web address] Plastic and Reconstructive Surgery 10/25/19 Royal Daniels MD [address] [place] [address] Gynecology 10/25/19 documented as of this encounter Additional Source Comments The information contained in this document represents components of the legal health record. It is not the complete legal health record.[facility]
--- OUTSIDE RECORDS SUMMARY | 2025-06-20 19:46 | XMS_ITS | Encounter Summary ---
Author Organization [facility] Address [address] [facility] [address] [place] [address] Phone Care Team Providers Care Manpower Development Specialist Name Role Phone Guzman Arteaga MD Primary Care Provider Self-Referred, Patient Unavailable Unavailab Marisa Mcnally MD Unavailable [phone] Sania Zarate PA-C Unavailable [phone] Hemal Rodriguez MD, PhD Unavailable [phone] Saranya Treadwell NP Unavailable Unavai Silvana Florez MD Unavailable Sophie Martins RN Unavailable [phone] Linn Menon [facility] Unavailable Malik Perez MD Unavailable [phone] Royal Daniels MD Unavailable [phone] Richard Andrews MD Unavailable Megha Flowers Primary Care Provider Encounter Details Date Type Department Care Team (Late st Contact Info) Description 12/22/2022 Procedure Pass [facility] [place], Mammography, Prerna Lank Imaging Department [address] [place] [address] Social History Tobacco Use Types Packs/Day Years [...] high school, GED, job training, learning the Ukrainian language, technical skills, or developing parenting skills)? [...] Info) Description 01/02/2025 Procedure Pass [facility] [place], Mammography, Prerna Lank Imaging Department [address] [place] [phone] 07/01/2025 8:45 AM EST Office Visit [facility] Plastic Surgery [address] [place] [address] Kunal Navarro MD [address] [place] [address], [address] [place] [address] 07/18/2025 3:00 PM EST Office Visit [facility] [address] [place] [address] Megha Flowers, [facility] 234 [facility], [address] [place] [address] 08/14/2025 Procedure Pass OR Admitting Dept - Virtual Department [address] [place] [address] 08/14/2025 12:02 PM EST Hospital Encounter OR Admitting Dept - Virtual Department [address] [place] [address] Kunal Navarro MD [address] [place] [address], [address] [place] [address] 08/14/2025 12:02 PM EST - 08/14/2025 2:27 PM EST Surgery OR Admitting Dept - Virtual Department [address] [place] [address] Kunal Navarro MD [address] [place] [address], [address] [place] [address] CAPSULOTOMY BREAST 01/08/2026 2:00 PM EDT Appointment [facility] [place], Mammography, Prerna Lank Imaging Department [address] [place] [address] Maryse Aparicio PA-C 450 [place] [address] [email or web address] Hemal Rodriguez MD, PhD 450 [place] [address] [email or web address] beds [facility] 01/08/2026 3:00 PM EDT Office Visit [facility], [facility] [place] [facility], [facility] [place] [address] [facility], 9th [place] [address] Hemal Rodriguez MD, PhD [address] [place] [address] [email or web address] 234 beds at [facility] Scheduled Procedures Name Priority Associated Diagnoses Date/Ti me CAPSULOTOMY BREAST Breast asymmetry between [place] breast and reconstructed breast 08/14/2025 12:02 PM EST EXCHANGE IMPLANT BREAST Breast asymmetry between [place] breast and reconstructed breast 08/14/2025 12:02 PM EST documented as of this encounter Visit Diagnoses Not on filedocumented in this encounter Additional Health Concerns Infection Onset Date Last Indicated Resolved Time COVID-19 04/24/2024 04/24/2024 05/15/2024 1:21 AM EDT Assessment Noted Time PHQ-2 Depression Total Score: 0 08/10/20 12:11 PM EST documented as of this encounter Care Teams Manpower Development Specialist Relationship Specialty Start Date End Date Guzamn Arteaga MD [address] [place] [address] 7 [place] [address] PCP - General Family Medicine 09/05/17 03/16/23 Richard Andrews MD [address] [place] [address] [email or web address] PCP - Hematology/Oncology Hematology and Oncology 01/03/20 Megha Flowers FNP [address] [place] [address] 7 [place] [address] PCP - General Family Medicine 03/17/23 Self-Referred, Patient Referring Physician 03/29/18 Marisa De Anda MD [address] [place] [address] [email or web address] Surgical Oncology 03/29/18 Sania Zarate PA-C [address] [place], [place] [address] [place], [place] [email or web address]@[email or web address] Surgical Oncology 03/29/18 Hemal Rodriguez MD, PhD [address] [place] [address] [email or web address] Hematology and Oncology 03/29/18 Saranya Treadwell, BLANQUITA [address] [place] [address] Internal Medicine 03/29/18 Silvana Oakes MD [address] [place] [address] [email or web address] Radiation Oncology 06/01/18 Sophie Martins, YOSELIN [address] [place] [address] [email or web address] Primary Infusion Nurse 07/17/18 Linn Menon, [address] [email or web address] Relief Charge Nurse Oncology 07/28/18 Malik Perez MD [address] [place] [address] [email or web address] Plastic and Reconstructive Surgery 10/25/19 Royal Daniels MD [address] [place] [address] Gynecology 10/25/19 documented as of this encounter Additional Source Comments The information contained in this document represents components of the legal health record. It is not the complete legal health record.[facility]
== END 2025-06-20 19:16 | disposition home or self-care (01) ==
PROVIDERS: Emergency Provider Emergency Medicine
DX: S81.851A Open bite, right lower leg, initial encounter (principal); M79.604 Pain in right leg; W54.0XXA Bitten by dog, initial encounter; Y93.9 Activity, unspecified; Y92.9 Unspecified place or not applicable; Y99.8 Other external cause status; Z23 Encounter for immunization; Z29.14 Encounter for prophylactic rabies immune globulin; Z20.3 Contact with and (suspected) exposure to rabies
CPT/HCPCS: 90375; 90471; 90472; 90675; 96372; 99282; 99284

== ENCOUNTER 2025-07-04 09:00 | Outpatient (RCR) | payer OTHER, SELFPAY ==
[2025-06-23 10:20] VITALS: BP 128/93; PULSE 67; RESP 16; TEMP 36.3; O2SAT 97
[2025-06-23] MEDS: Rabies Vaccine (PCEC)/PF 1 ML VIAL IM (10:24)
[2025-06-27 09:23] VITALS: BP 130/79; PULSE 80; RESP 16; TEMP 36.7; O2SAT 98
[2025-06-27] MEDS: Rabies Vaccine (PCEC)/PF 1 ML VIAL IM (09:25)
[2025-07-04 09:12] VITALS: BP 134/77; PULSE 86; RESP 18; TEMP 36.3
[2025-07-04] MEDS: Rabies Vaccine (PCEC)/PF 1 ML VIAL IM (09:13)
== END 2025-07-04 09:18 | disposition home or self-care (01) ==
LOC: HO.INF 09:00
PROVIDERS: Visit Provider Physician Assistant Medical
DX: Z20.3 Contact with and (suspected) exposure to rabies (principal); T14.8XXD Other injury of unspecified body region, subsequent encounter; W54.0XXD Bitten by dog, subsequent encounter
CPT/HCPCS: 90471; 90675